=== PATIENT | male | born 1935 | race Hispanic/Latino ===

== ENCOUNTER 2017-07-27 21:43 | Inpatient (IN) | payer MEDICARE ==
[~2017-07-27] VITALS: Ht 177.8 cm; Wt 83.6 kg
[~2017-07-27 21:43] MED LIST: FUROSEMIDE20 MG PO; LUMIGAN2.5 M1 OP; PRAVASTATIN SOD40 MG PO; Z.0.LIPITOR40 MG PO; Z.0.LISINOPRIL20 MG PO; [UNRECOGNIZED DRUG - REMARK]
[2017-07-27] MEDS ORDERED: SODIUM CHLORIDE 0.9% 1000ML 1,000 ML IV STA (22:02)
[2017-07-27 22:29] LABS: BASOPHILS % 0.2 % (0.0-1.0); HEMATOCRIT 38.1 % (38.2-49.6); HEMOGLOBIN 13.4 g/dL (14.0-18.0); LYMPHOCYTES # (AUTO) 0.6 (1.0-3.2); LYMPHOCYTES % 4.1 % (18.0-39.1); MEAN CORPUSCULAR HEMOGLOBIN 30.6 pg (28-32); MEAN CORPUSCULAR HGB CONC 35.2 g/dL (31-35); MONOCYTES % 7.4 % (4.4-11.3); NEUTROPHILS # (AUTO) 12.1 (2.1-6.9); NEUTROPHILS % 86.7 % (38.7-80.0); PLATELET COUNT 102 x10e3/uL (140-360); RED BLOOD COUNT 4.38 x10e6/uL (4.3-5.7)
[2017-07-27 22:37] LABS: INR 1.44; PROTHROMBIN TIME 16.5 seconds (11.9-14.5)
[2017-07-27 22:38] LABS: PARTIAL THROMBOPLASTIN TIME 37.7 seconds (23.8-35.5)
[2017-07-27 22:47] LABS: ALANINE AMINOTRANSFERASE 22 IU/L (0-55); ALBUMIN 3.6 g/dL (3.5-5.0); ALBUMIN/GLOBULIN RATIO 0.9 (0.8-2.0); ALKALINE PHOSPHATASE 61 IU/L (40-150); ANION GAP 16.5 mmol/L (8-16); BLOOD UREA NITROGEN 15 mg/dL (7-26); BUN/CREATININE RATIO 13 (6-25); CALCIUM 9.4 mg/dL (8.4-10.2); CARBON DIOXIDE 19 mmol/L (22-29); CHLORIDE 102 mmol/L (98-107); CREATINE KINASE 613 IU/L (30-200); CREATININE, SERUM 1.12 mg/dL (0.72-1.25); EST GLOMERULAR FILTRATION RATE > 60 ML/MIN (60-); GLUCOSE 150 mg/dL (74-118); MAGNESIUM 1.5 MG/DL (1.3-2.1); POTASSIUM 3.5 mmol/L (3.5-5.1); SODIUM 134 mmol/L (136-145)
--- NOTE | 2017-07-27 22:48 | Diagnostic Imaging Report ---
History: Fall, near syncope. Comparison studies: None Technique: Axial images were obtained through the cervical region.. Coronal and sagittal images reconstructed from the axial data.. Intravenous contrast: None Findings: Fractures: None. Soft tissue injuries: None. Atlantoaxial articulation: Intact. Alignment: Normal lordosis. No scoliosis. 2 mm, grade 1 retrolisthesis at level C5-C6. Cervicomedullary junction: No abnormalities. The foramen magnum is patent. Soft tissues: Atherosclerotic calcification in bilateral carotid bulb. 5 mm calcified nodule in left lobe of the thyroid gland. Vertebrae: No fractures, infection or neoplasm. Degenerative changes: Mild degenerative changes in the anterior atlantodental joint. C 3-C4: Mild degenerative disc disease with vacuum phenomenon. Posterior disc osteophyte complex without canal stenosis. Mild right and moderate left foraminal stenosis due to facet and uncovertebral arthrosis. C4-C5: Moderate degenerative disc disease with vacuum phenomena and. Mild left foraminal stenosis due to facet and uncovertebral arthrosis. C5-C6: Moderate degenerative disc disease with vacuum phenomenon. Posterior disc osteophyte complex results in mild canal stenosis. Moderate right and severe left foraminal stenosis facet and uncovertebral arthrosis. C6-C7: Moderate degenerative disc disease with vacuum phenomenon and. Posterior disc osteophyte complex results in mild canal stenosis. Severe right and moderate left foraminal stenosis due to facet and uncovertebral arthrosis. IMPRESSION: 1. No acute cervical spine fracture or dislocation. 2. Ligament, spinal cord and or vascular abnormalities cannot be excluded on the basis of this examination. 3. Cervical spondylosis as detailed above. Signed by: Dr. Shanon Malik M.D. on 07/27/2017 10:45 PM
[2017-07-27 22:52] LABS: B-TYPE NATRIURETIC PEPTIDE2 81.7 pg/mL (0-100)
--- NOTE | 2017-07-27 22:54 | Diagnostic Imaging Report ---
EXAMINATION: Head CT without contrast. HISTORY:Fall. COMPARISON:None. TECHNIQUE: Multidetector axial images were obtained from the foramen magnum to the vertex without contrast. The images were reconstructed using brain and bone algorithms. Thin section brain images were reformatted into coronal and sagittal planes. Intravenous contrast: None IMAGE QUALITY: Acceptable. FINDINGS: Skull/scalp: No abnormality. Parenchyma: Nonspecific bilateral frontoparietal patchy white matter hypodensity are likely related to small vessel ischemic changes. 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 Questionable focal hypodensity in the inferior aspect of the lou may either represent an artifact or age indeterminate lacunar infarct. Arteries: Atherosclerotic calcification in bilateral carotid siphon. Dural sinuses: No abnormal density suggestive of thrombosis. Ventricles: No hydrocephalus or displacement. Extra-axial spaces: No abnormal density. Brain volume: Generalized age-related cerebral volume loss. Craniocervical junction: No mass, Chiari malformation, or basilar invagination. Sella: No mass. Paranasal/mastoid sinuses: Imaged portions unremarkable. IMPRESSION: 1. No acute posttraumatic intracranial abnormality. 2. 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 3. Mild supratentorial white matter microvascular ischemic changes. 4. Generalized age-related cerebral volume loss. Signed by: Dr. Shanon Malik M.D. on 07/27/2017 10:50 PM
--- NOTE | 2017-07-27 23:00 | Diagnostic Imaging Report ---
SHOULDER LEFT COMPLETE HISTORY: Shoulder pain status post fall COMPARISON: None FINDINGS: Bones: No displaced fracture. Osseous alignment is within normal limits. Joints: The joint spaces are well-maintained. Soft tissues: The soft tissues appear unremarkable. IMPRESSION: No acute radiographic abnormality. Signed by: Dr. Klaus Vega M.D. on 07/27/2017 10:57 PM
--- NOTE | 2017-07-27 23:00 | Diagnostic Imaging Report ---
EXAMINATION: CHEST SINGLE (PORTABLE) INDICATION: Fever, tachycardia COMPARISON: 04/23/2014 FINDINGS: TUBES and LINES: None. LUNGS: Lungs are well inflated. Lungs are clear. There is no evidence of pneumonia or pulmonary edema. PLEURA: No pleural effusion or pneumothorax. HEART AND MEDIASTINUM: The cardiomediastinal silhouette is unremarkable. There are atherosclerotic calcifications within the aorta. BONES AND SOFT TISSUES: No acute osseous lesion. Soft tissues are unremarkable. UPPER ABDOMEN: No free air under the diaphragm. IMPRESSION: No acute thoracic abnormality. Signed by: Dr. Klaus Vega M.D. on 07/27/2017 10:56 PM
--- NOTE | 2017-07-27 23:06 | Diagnostic Imaging Report ---
ADDENDUM #1 Addendum report for typo in the impression #5 EXAM: CT Abdomen and Pelvis WITHOUT contrast INDICATION: Flank pain, stones COMPARISON: None. TECHNIQUE: Abdomen and pelvis were scanned utilizing a multidetector helical scanner from the lung base to the pubic symphysis without administration of IV contrast. Absence of intravenous contrast decreases sensitivity for detection of focal lesions and vascular pathology. Coronal and sagittal reformations were obtained. Stone protocol is performed. IV CONTRAST: None. ORAL CONTRAST: Water RADIATION DOSE: Total DLP: 675.59 mGy*cm Estimated effective dose: (DLP x 0.015 x size factor) mSv COMPLICATIONS: None FINDINGS: LINES and TUBES: None. LOWER THORAX: Minimal bibasilar fibrotic changes. Coronary artery disease visualized. HEPATOBILIARY: No focal hepatic lesions. No biliary ductal dilation. GALLBLADDER: There are few small stones in the gallbladder. No wall thickening. SPLEEN: No splenomegaly. PANCREAS: No focal masses or ductal dilatation. ADRENALS: No adrenal nodules KIDNEYS/URETERS: No hydronephrosis. There are 2 cystic lesions in the upper pole of the right kidney measuring 2.4 cm in diameter and 2.6 cm in diameter. The largest is a slightly hyperdense about 20 Hounsfield units. No stones. GI TRACT: No abnormal distention, wall thickening, or evidence of bowel obstruction. There are diverticula within the colon without evidence of diverticulitis. Appendix is not clearly identified. There is however no fat stranding or adenopathy in the right lower quadrant to suggest appendicitis. PELVIC ORGANS/BLADDER: Circumferential bladder wall thickening most likely due to BPH LYMPH NODES: No lymphadenopathy. VESSELS: There is moderate atherosclerotic disease in the aorta and major arterial branches. PERITONEUM / RETROPERITONEUM: No free air or fluid. BONES: There are degenerative changes in the lumbar spine. Old compression deformity of L2 vertebral body near 90% of the vertebral height. SOFT TISSUES: Unremarkable. IMPRESSION: 1. No evidence of nephrolithiasis or hydronephrosis. 2. Right renal upper pole cystic lesions, the largest measuring 2.6 cm in diameter is indeterminate. Short-term follow-up renal ultrasound is recommended. 3. Diverticulosis without evidence of diverticulitis. 4. Prostatomegaly. 5. 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 Klaus Vega M.D. on 07/29/2017 7:33 PM ORIGINAL REPORT EXAM: CT Abdomen and Pelvis WITHOUT contrast INDICATION: Flank pain, stones COMPARISON: None. TECHNIQUE: Abdomen and pelvis were scanned utilizing a multidetector helical scanner from the lung base to the pubic symphysis without administration of IV contrast. Absence of intravenous contrast decreases sensitivity for detection of focal lesions and vascular pathology. Coronal and sagittal reformations were obtained. Stone protocol is performed. IV CONTRAST: None. ORAL CONTRAST: Water RADIATION DOSE: Total DLP: 675.59 mGy*cm Estimated effective dose: (DLP x 0.015 x size factor) mSv COMPLICATIONS: None FINDINGS: LINES and TUBES: None. LOWER THORAX: Minimal bibasilar fibrotic changes. Coronary artery disease visualized. HEPATOBILIARY: No focal hepatic lesions. No biliary ductal dilation. GALLBLADDER: There are few small stones in the gallbladder. No wall thickening. SPLEEN: No splenomegaly. PANCREAS: No focal masses or ductal dilatation. ADRENALS: No adrenal nodules KIDNEYS/URETERS: No hydronephrosis. There are 2 cystic lesions in the upper pole of the right kidney measuring 2.4 cm in diameter and 2.6 cm in diameter. The largest is a slightly hyperdense about 20 Hounsfield units. No stones. GI TRACT: No abnormal distention, wall thickening, or evidence of bowel obstruction. There are diverticula within the colon without evidence of diverticulitis. Appendix is not clearly identified. There is however no fat stranding or adenopathy in the right lower quadrant to suggest appendicitis. PELVIC ORGANS/BLADDER: Circumferential bladder wall thickening most likely due to BPH LYMPH NODES: No lymphadenopathy. VESSELS: There is moderate atherosclerotic disease in the aorta and major arterial branches. PERITONEUM / RETROPERITONEUM: No free air or fluid. BONES: There are degenerative changes in the lumbar spine. Old compression deformity of L2 vertebral body near 90% of the vertebral height. SOFT TISSUES: Unremarkable. IMPRESSION: 1. No evidence of nephrolithiasis or hydronephrosis. 2. Right renal upper pole cystic lesions, the largest measuring 2.6 cm in diameter is indeterminate. Short-term follow-up renal ultrasound is recommended. 3. Diverticulosis without evidence of diverticulitis. 4. Prostatomegaly. 5. 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 Klaus Vega M.D. on 07/27/2017 11:03 PM
[2017-07-27 23:07] LABS: THYROID STIMULATING HORMONE 1.221 uIU/mL (0.350-4.940)
[2017-07-27] MEDS ORDERED: ACETAMINOPHEN 325 MG TAB PO ONE (23:15)
[2017-07-27] MEDS ORDERED: VANCOMYCIN 1GM/NS 250 ML 250 ML IV ONE (23:15)
[2017-07-27 23:43] LABS: BILIRUBIN,URINE NEGATIVE (NEGATIVE); KETONES,URINE 2+ (NEGATIVE); LEUKOCYTE ESTERASE ,URINE 2+ (NEGATIVE); URINE UROBILINOGEN 0.2 mg/dL (0.2 - 1)
[2017-07-27 23:46] LABS: CLARITY,URINE CLOUDY (CLEAR); COLOR,URINE YELLOW (YELLOW); NITRITE,URINE POSITIVE (NEGATIVE); PROTEIN,URINE DIPSTICK 2+ (NEGATIVE)
[2017-07-27 23:55] LABS: BACTERIA,URINE MANY /HPF; EPITHELIAL CELLS,URINE RARE /LPF; RBC,URINE 21-50 /HPF (0-5); WBC,URINE (MAN) >50 /HPF (0-5)
[2017-07-28] MEDS ORDERED: SODIUM CHLORIDE 0.9% 1000ML 1,000 ML IV STA (01:11)
[2017-07-28] MEDS ORDERED: FAMOTIDINE 20 MG/2 ML VIAL IV SCH (02:00)
[2017-07-28] MEDS ORDERED: ONDANSETRON HCL INJ 2 MG/ML VIAL IV PRN (02:00)
[2017-07-28] MEDS: CEFEPIME HCL 2 GM VIAL IV SCH ×3 (02:07→22:36)
--- OUTSIDE RECORDS SUMMARY | 2017-07-28 02:08 | XMS REPORT ---
[facility] Address Unknown Phone Unavailable Care Team Providers Care Cushion Filler Name Role Phone MICHELLE BULL Unavailable Unavailable Problems This patient has no known problems. Allergies, Adverse Reactions, Alerts This patient has no known allergies or adverse reactions. Medications This patient has no known medications. Results Test Description Test Time Test Comments Text Results Atomic Results Result Comments CT ABDOMEN/PELVIS WO [place] [address] Patient Name: RED NORTH MR #: [id number] : 1935 Age/Sex: 82/M Req #: [id number] Adm Physician: Ordered by: MICHELLE BULL MD Report #: [id number] Location: ER Room/Bed: Procedure: [id number] CT/CT ABDOMEN/PELVIS WO Exam Date: 07/27/17 Exam Time: 5 REPORT STATUS: Signed EXAM: CT Abdomen and Pelvis WITHOUT contrast INDICATION: Flank pain, stones COMPARISON: None. TECHNIQUE: Abdomen and pelvis were scanned utilizing a multidetector helical scanner from the lung base to the pubic symphysis without administration of IV contrast. Absence of intravenous contrast decreases sensitivity for detection of focal lesions and vascular pathology. Coronal and sagittal reformations were obtained. Stone protocol is performed. IV CONTRAST: None. ORAL CONTRAST: Water RADIATION DOSE: Total DLP: 675.59 mGy*cm Estimated effective dose: (DLP x 0.015 x size factor) mSv COMPLICATIONS: None FINDINGS: LINES and TUBES: None. LOWER THORAX: Minimal bibasilar fibrotic changes. Coronary artery disease visualized. HEPATOBILIARY: No focal hepatic lesions. No biliary ductal dilation. GALLBLADDER: There are few small stones in the gallbladder. No wall thickening. SPLEEN: No splenomegaly. PANCREAS: No focal masses or ductal dilatation. ADRENALS: No adrenal nodules KIDNEYS/URETERS: No hydronephrosis. There are 2 cystic lesions in the upper pole of the right kidney measuring 2.4 cm in diameter and 2.6 cm in diameter. The largest is a slightly hyperdense about 20 Hounsfield units. No stones. GI TRACT: No abnormal distention, wall thickening, or evidence of bowel obstruction. There are diverticula within the colon without evidence of diverticulitis. Appendix is not clearly identified. There is however no fat stranding or adenopathy in the right lower quadrant to suggest appendicitis. PELVIC ORGANS/BLADDER: Circumferential bladder wall thickening most likely due to BPH LYMPH NODES: No lymphadenopathy. VESSELS: There is moderate atherosclerotic disease in the aorta and major arterial branches. PERITONEUM / RETROPERITONEUM: No free air or fluid. BONES: There are degenerative changes in the lumbar spine. Old compression deformity of L2 vertebral body near 90% of the vertebral height. SOFT TISSUES: Unremarkable. IMPRESSION: 1. No evidence of nephrolithiasis or hydronephrosis. 2. Right renal upper pole cystic lesions, the largest measuring 2.6 cm in diameter is indeterminate. Short-term follow-up renal ultrasound is recommended. 3. Diverticulosis without evidence of diverticulitis. 4. Prostatomegaly. 5. 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 Klaus Vega M.D. on 07/27/2017 11:03 PM Dictated By: KLAUS MONIQUE MD 02 Transcribed By: SIMEON on 07/27/172302 COPY TO: MICHELLE BULL MD CT CERVICAL SPINE [place] [address] Patient Name: RED NORTH MR #: [id number] : 1935 Age/Sex: 82/M Req #: [id number] Adm Physician: Ordered by: MICHELLE BULL MD Report #: [id number] Location: ER Room/Bed: Procedure: [id number] CT/CT CERVICAL SPINE WO Exam Date: 07/27/17 Exam Time: 2214 REPORT STATUS: Signed History: Fall, near syncope. Comparison studies: None Technique: Axial images were obtained through the cervical region.. Coronal and sagittal images reconstructed from the axial data.. Intravenous contrast: None Findings: Fractures: None. Soft tissue injuries: None. Atlantoaxial articulation: Intact. Alignment: Normal lordosis. No scoliosis. 2 mm, grade 1 retrolisthesis at level C5-C6. Cervicomedullary junction: No abnormalities. The foramen magnum is patent. Soft tissues: Atherosclerotic calcification in bilateral carotid bulb. 5 mm calcified nodule in left lobe of the thyroid gland. Vertebrae : No fractures, infection or neoplasm. Degenerative changes: Mild degenerative changes in the anterior atlantodental joint. C 3-C4: Mild degenerative disc disease with vacuum phenomenon. Posterior disc osteophyte complex without canal stenosis. Mild right and moderate left foraminal stenosis due to facet and uncovertebral arthrosis. C4-C5: Moderate degenerative disc disease with vacuum phenomena and. Mild left foraminal stenosis due to facet and uncovertebral arthrosis. C5-C6: Moderate degenerative disc disease with vacuum phenomenon. Posterior disc osteophyte complex results in mild canal stenosis. Moderate right and severe left foraminal stenosis facet and uncovertebral arthrosis. C6-C7: Moderate degenerative disc disease with vacuum phenomenon and. Posterior disc osteophyte complex results in mild canal stenosis. Severe right and moderate left foraminal stenosis due to facet and uncovertebral arthrosis. IMPRESSION: 1. No acute cervical spine fracture or dislocation. 2. Ligament, spinal cord and or vascular abnormalities cannot be excluded on the basis of this examination. 3. Cervical spondylosis as detailed above. Signed by: Dr. Shanon Malik M.D. on 07/27/2017 10:45 PM Dictated By: SHANON MALIK MD 44 Transcribed By: SIMEON on 07/27/172244 COPY TO: MICHELLE BULL MD CT BRAIN WO [place] [address] Patient Name: RED NORTH MR #: [id number] : 1935 Age/Sex: 82/M Req #: [id number] Adm Physician: Ordered by: MICHELLE BULL MD Report #: [id number] Location: ER Room/Bed: Procedure: [id number] CT/CT BRAIN WO Exam Date: 07/27/17 Exam Time: 2214 REPORT STATUS: Signed EXAMINATION: Head CT without contrast. HISTORY:Fall. COMPARISON:None. TECHNIQUE: Multidetector axial images were obtained from the foramen magnum to the vertex without contrast. The images were reconstructed using brain and bone algorithms. Thin section brain images were reformatted into coronal and sagittal planes. Intravenous contrast: None IMAGE QUALITY: Acceptable. FINDINGS: Skull/scalp: No abnormality. Parenchyma: Nonspecific bilateral frontoparietal patchy white matter hypodensity are likely related to small vessel ischemic changes. 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 Questionable focal hypodensity in the inferior aspect of the lou may either represent an artifact or age indeterminate lacunar infarct. Arteries: Atherosclerotic calcification in bilateral carotid siphon. Dural sinuses: No abnormal density suggestive of thrombosis. Ventricles: No hydrocephalus or displacement. Extra-axial spaces: No abnormal density. Brain volume: Generalized age-related cerebral volume loss. Craniocervical junction: No mass, Chiari malformation, or basilar invagination. Sella: No mass. Paranasal/mastoid sinuses: Imaged portions unremarkable. IMPRESSION: 1. No acute posttraumatic intracranial abnormality. 2. 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 3. Mild supratentorial white matter microvascular ischemic changes. 4. Generalized age-related cerebral volume loss. Signed by: Dr. Shanon Malik M.D. on 07/27/2017 10:50 PM Dictated By: SHANON MALIK MD 49 Transcribed By: SIMEON on 07/27/172249 COPY TO: MICHELLE BULL MD CHEST SINGLE (PORTABLE) [place] [address] Patient Name: RED NORTH MR #: [id number] : 1935 Age/Sex: 82/M Req #: [id number] Adm Physician: Ordered by: MICHELLE BULL MD Report #: [id number] Location: ER Room/Bed: Procedure: [id number] DX/CHEST SINGLE (PORTABLE) Exam Date: 07/27/17 Exam Time: 2214 REPORT STATUS: Signed EXAMINATION: CHEST SINGLE (PORTABLE) INDICATION: Fever, tachycardia COMPARISON: 04/23/2014 FINDINGS: TUBES and LINES: None. LUNGS : Lungs are well inflated. Lungs are clear. There is no evidence of pneumonia or pulmonary edema. PLEURA: No pleural effusion or pneumothorax. HEART AND MEDIASTINUM: The cardiomediastinal silhouette is unremarkable. There are atherosclerotic calcifications within the aorta. BONES AND SOFT TISSUES: No acute osseous lesion. Soft tissues are unremarkable. UPPER ABDOMEN: No free air under the diaphragm. IMPRESSION: No acute thoracic abnormality. Signed by: Dr. Klaus Vega M.D. on 07/27/2017 10:56 PM Dictated By: KLAUS MONIQUE MD 55 Transcribed By: SIMEON on 07/27/172255 COPY TO: MICHELLE BULL MD SHOULDER LEFT COMPLETE [place] [address] Patient Name: RED NORTH MR #: [id number] : 1935 Age/Sex: 82/M Req #: [id number] Adm Physician: Ordered by: MICHELLE BULL MD Report #: [id number] Location: ER Room/Bed: Procedure: [id number] DX/SHOULDER LEFT COMPLETE Exam Date: 07/27/17 Exam Time: 2214 REPORT STATUS: Signed SHOULDER LEFT COMPLETE HISTORY: Shoulder pain status post fall COMPARISON: None FINDINGS: Bones: No displaced fracture. Osseous alignment is within normal limits. Joints: The joint spaces are well-maintained. Soft tissues: The soft tissues appear unremarkable. IMPRESSION: No acute radiographic abnormality. Signed by: Dr. Klaus Vega M.D. on 2017 10:57 PM Dictated By: KLAUS MONIQUE MD 56 Transcribed By: SIMEON on 07/27/172256 COPY TO: MICHELLE BULL MD
[2017-07-28] MEDS ORDERED: ACETAMINOPHEN 325 MG TAB PO PRN (02:15)
[2017-07-28] MEDS: SODIUM CHLORIDE 0.9% 1000ML 1,000 ML IV SCH ×3 (03:32→21:58)
[2017-07-28 04:21] LABS: CREATINE KINASE MB 3.6 ng/mL (0-5.0)
[2017-07-28] MEDS: FAMOTIDINE 20 MG/2 ML VIAL IV SCH ×2 (09:57→21:58)
[2017-07-28 13:04] LABS: CREATINE KINASE MB 5.4 ng/mL (0-5.0)
[2017-07-28] MEDS ORDERED: ASPIRIN 81 MG CHEW TAB PO ONE (15:15)
--- NOTE | 2017-07-28 16:09 | History and Physical ---
HISTORY OF PRESENT ILLNESS: He is an 82-year-old male with past medical history positive for benign prostatic hypertrophy, status post TURP in the past done by Dr. Garza, history of hypertension. Also he had a fall at home. He was having also burning on urination and he was having fever. He came to the emergency room and found to have urinary tract infection. Started on IV antibiotics. He is unable to void also. He was found to have rhabdomyolysis. REVIEW OF SYSTEMS: CARDIOVASCULAR: No chest pain or palpitations. RESPIRATORY: No shortness of breath. No cough. GASTROINTESTINAL: No nausea, vomiting or diarrhea. GENITOURINARY: He has frequency and he has urinary retention. No dysuria today. ALLERGIES: HE CLAIMS HE IS NOT ALLERGIC TO ANY MEDICATIONS. SOCIAL HISTORY: He does smoke, does not drink. PAST MEDICAL HISTORY: Hypertension, benign prostatic hypertrophy, status post TURP. PHYSICAL EXAMINATION: HEART: Shows regular rhythm. Normal S1and no extra sounds. LUNGS: Clear bilaterally. ABDOMEN: Soft with minimal tenderness on the lower abdomen. He had a distended bladder. On the CT of the abdomen, it showed no evidence of any cholelithiasis or hydronephrosis. 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 He had a CT of the head which showed no acute posttraumatic intracranial abnormalities, age indeterminate lacunar infarct in the left thalamus, mild, supratentorial white matter microvascular ischemic changes, generalized age related. Cerebral volume loss. Then we have a CT of the cervical spine which showed no acute cervical spine fracture or dislocation. It showed ligament spinal cord vascular abnormalities cannot be excluded on the basis of this examination, cervical spondylosis as detailed above. We have also a chest x-ray with no acute thoracic abnormalities. We have also shoulder x-ray which showed no acute radiographic abnormalities. LABORATORY DATA: On the blood work, we have influenza test came back negative. CMP showed sodium of 134, potassium 3.5, chloride 102. CO2 19, BUN 15, creatinine 1.12, GFR 60 and glucose 150. Lactic acid 20.9. The last one was 10.6. Calcium 9.6. Magnesium 1.5. Total bilirubin 1.5. AST 27, ALT 22, alkaline phosphatase 61. Creatinine kinase was 313 now is 924. CK-MB troponins are completely negative. Total protein 7.4, albumin 3.6, globulin 3.8. TSH 1.221. On the CBC, white blood count 13.91. Hemoglobin 13.4 and hematocrit 38.1, platelet count 102,000. Urinalysis showed positive leukocytes, positive red blood cells, many bacteria. Urine culture and blood culture have been ordered. Report is pending. We have some gram-negative bacteria growing in the urine and in the blood also. FINAL IMPRESSION: 1. Urinary tract infection. 2. Prostatitis. 3. Rhabdomyolysis. 4. Benign prostatic hypertrophy. 5. Left shoulder pain. 6. Sepsis secondary to urinary tract infection. 7. 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 PLAN OF TREATMENT: Continue normal saline 100 mL an hour. Continue Tylenol 975 mg as needed for pain or fever. Cefepime 2 grams IV piggyback twice a day. Pepcid 20 mg IV twice a day. Zofran 4 mg IV q.4 h. as needed. Going to consult Dr. Garza, going to consult Dr. Kuhn. Going to repeat a CBC, CMP and CK tomorrow. Job#: [id number]
[2017-07-28 19:20] VITALS: BP 148/77
[2017-07-28 19:30] VITALS: BP 148/77
[2017-07-28] MEDS ORDERED: LASIX40 MG PO (22:53)
[2017-07-28] MEDS ORDERED: GABAPENTIN300 MG PO (22:57)
[2017-07-28] MEDS ORDERED: LASIX20 MG PO (22:57)
[2017-07-28] MEDS ORDERED: LISINOPRIL10 MG PO (22:57)
[2017-07-28] MEDS ORDERED: REFRESH TEARS15 ML OU (22:57)
[2017-07-28 23:50] VITALS: BP 148/77
[2017-07-29] VITALS (8 sets, daily range): BP systolic 144–162; BP diastolic 62–94
[2017-07-29] MEDS: SODIUM CHLORIDE 0.9% 1000ML 1,000 ML IV SCH (06:10)
[2017-07-29] MEDS: FAMOTIDINE 20 MG/2 ML VIAL IV SCH (09:15)
[2017-07-29 09:57] LABS: BASOPHILS % 0.3 % (0.0-1.0); EOSINOPHILS # (AUTO) 0.1 (0.0-0.4); EOSINOPHILS % 1.3 % (0.0-6.0); HEMATOCRIT 36.7 % (38.2-49.6); HEMOGLOBIN 12.5 g/dL (14.0-18.0); LYMPHOCYTES # (AUTO) 0.7 (1.0-3.2); LYMPHOCYTES % 9.4 % (18.0-39.1); MEAN CORPUSCULAR HEMOGLOBIN 30.3 pg (28-32); MEAN CORPUSCULAR HGB CONC 34.1 g/dL (31-35); MEAN CORPUSCULAR VOLUME 88.9 fL (81-99); MONOCYTES # (AUTO) 0.5 (0.2-0.8); MONOCYTES % 6.9 % (4.4-11.3); NEUTROPHILS # (AUTO) 6.4 (2.1-6.9); NEUTROPHILS % 81.3 % (38.7-80.0); PLATELET COUNT 96 x10e3/uL (140-360); RED BLOOD COUNT 4.13 x10e6/uL (4.3-5.7); RED CELL DISTRIBUTION WIDTH 12.8 % (11.7-14.4)
[2017-07-29] MEDS: LISINOPRIL 20 MG TAB PO SCH (10:16)
[2017-07-29 10:20] LABS: ALANINE AMINOTRANSFERASE 24 IU/L (0-55); ALBUMIN 2.8 g/dL (3.5-5.0); ALBUMIN/GLOBULIN RATIO 0.7 (0.8-2.0); ALKALINE PHOSPHATASE 56 IU/L (40-150); ANION GAP 11.2 mmol/L (8-16); BLOOD UREA NITROGEN 9 mg/dL (7-26); BUN/CREATININE RATIO 13 (6-25); CALCIUM 8.6 mg/dL (8.4-10.2); CARBON DIOXIDE 19 mmol/L (22-29); CHLORIDE 109 mmol/L (98-107); CHOL/HDL RATIO 3.7 (3.9-4.7); CHOLESTEROL 132 MD/DL (0-199); CREATININE, SERUM 0.72 mg/dL (0.72-1.25); EST GLOMERULAR FILTRATION RATE > 60 ML/MIN (60-); GLUCOSE 170 mg/dL (74-118); HDL CHOLESTEROL 36 MG/DL (40-60); LDL CHOLESTEROL 72 MG/DL (60-130); POTASSIUM 3.2 mmol/L (3.5-5.1); SODIUM 136 mmol/L (136-145); TRIGLYCERIDES 118 MG/DL (0-149)
[2017-07-29] MEDS: CEFEPIME HCL 2 GM VIAL IV SCH (11:35)
[2017-07-29] MEDS ORDERED: CEFEPIME HCL 1 GM VIAL IV SCH (14:00)
[2017-07-29] MEDS ORDERED: POTASSIUM CHLORIDE 20 MEQ TAB CR PO ONE (15:00)
[2017-07-29] MEDS: INSULIN REGULAR, HUMAN 100 UNIT/1 ML 3ML VIAL SQ SCH ×2 (16:24→20:02)
[2017-07-29] MEDS ORDERED: DEXTROSE 50% SYRINGE 50 ML IV PRN (16:30)
[2017-07-29] MEDS ORDERED: INSULIN REGULAR, HUMAN 100 UNIT/1 ML 3ML VIAL SQ SCH (16:30)
--- NOTE | 2017-07-29 17:05 | Consultation ---
DATE OF CONSULTATION: July 29, 2017 INFECTIOUS DISEASE CONSULTATION ATTENDING PHYSICIAN: Dr. Duglas Jurado. REASON FOR CONSULTATION: Sepsis and urinary tract infection. Thank you, Dr. Jurado, for asking me to see this patient. TRANSFER HISTORY: The patient is an 82-year-old man referred for sepsis and urinary tract infection. He presented to the emergency department on 07/27/2017 with left shoulder pain after a fall at home. The patient uses walker at home. He recalls frequent small volume urination, but denies dysuria and flank pain. He fell landing on the left shoulder while getting out of the toilet. He denies dizziness, loss of consciousness, or confusion. He is not sure whether he tripped. In the emergency department, he was noted to have fever to 102.1 degrees Fahrenheit, pulse 119, respiratory rate 18, and blood pressure 134/73. Initial laboratory studies showed blood leucocyte count of 13,910 with 86.7% neutrophils; BUN 15, creatinine 1.12, troponin 0.036 and abnormal urinalysis. Left shoulder x-ray showed no acute fracture or dislocation. Also, brain CT scan and cervical CT scan showed no acute abnormality. PAST MEDICAL HISTORY: Hypertension, hyperlipidemia, neuropathy, and benign prostatic hyperplasia. PAST SURGICAL HISTORY: Appendectomy, transurethral resection of the prostate, lumbar spine laminectomy, left ankle open reduction and internal fixation. ALLERGIES: NO KNOWN DRUG ALLERGIES. MEDICATIONS: See MAR. The current antibiotic is cefepime 2 g IV piggyback q.12 hours. IMMUNIZATIONS: He received pneumococcal vaccination in the past. He has not received influenza vaccine, he stated that he never receives it. FAMILY HISTORY: Noncontributory. SOCIAL HISTORY: No alcohol or tobacco use. REVIEW OF SYSTEMS: As per history of present illness. The patient feels better since admission management. PHYSICAL EXAMINATION GENERAL: No acute distress. VITAL SIGNS: T-max 102.1, pulse 89, respiratory rate 20, blood pressure 162/94. Weight 189 pounds. HEENT: Atraumatic. There is no icterus or injection of the conjunctivae. There is no ear or nasal discharge. Moist oral mucosa. No pharyngeal erythema or exudate. NECK: Supple. No lymphadenopathy. LUNGS: Good air entry bilaterally. HEART: Normal S1 and S2. ABDOMEN: Normal bowel sounds in all quadrants. Soft and nontender. There is no costovertebral angle tenderness. EXTREMITIES: There is no edema, clubbing, or cyanosis. SKIN: There is no acute erythema. SECOND CRUSHER: Awake, alert, and oriented to person, place and time. Nonfocal. LABORATORY: WBC 7800, hemoglobin 12.5, platelet 96,000, neutrophil 81.3, lymph 9.4, mono 6.9, eosinophil 1.3, and basophil 0.3. BUN 9, creatinine 0.72. AST 36, ALT 24, alk phos 56, total bilirubin 0.7. Influenza antigen test negative. Urine culture grew Klebsiella pneumoniae and blood culture grew streptococcus species from 1 of 4 bottles. IMPRESSION 1. Urinary tract infection with sepsis due to Klebsiella pneumoniae, present on admission. 2. Positive blood culture due to streptococcus species, appears to be a contamination. 3. Benign prostatic hyperplasia. PLAN 1. Repeat blood culture with strict aseptic technique. 2. Change cefepime to 1 g IV piggyback q.8 hours. Influenza vaccination was offered to the patient, but he declined. 3. Remove Elizondo catheter. Job#: [id number] [facility]
[2017-07-29] MEDS: CEFEPIME HCL 1 GM VIAL IV SCH (19:32)
[2017-07-30] VITALS (8 sets, daily range): BP systolic 143–162; BP diastolic 72–92
[2017-07-30] MEDS: CEFEPIME HCL 1 GM VIAL IV SCH ×3 (04:08→20:50)
[2017-07-30] MEDS: INSULIN REGULAR, HUMAN 100 UNIT/1 ML 3ML VIAL SQ SCH ×4 (07:30→20:35)
[2017-07-30] MEDS: LISINOPRIL 20 MG TAB PO SCH (09:32)
[2017-07-30] MEDS ORDERED: POTASSIUM CHLORIDE 20 MEQ TAB CR PO ONE (15:00)
[2017-07-30] MEDS: PHENAZOPYRIDINE HCL 100 MG TAB PO SCH (20:49)
[2017-07-31] VITALS: BP 136/76
[2017-07-31 00:08] VITALS: BP 161/89
[2017-07-31] MEDS: CEFEPIME HCL 1 GM VIAL IV SCH ×2 (03:26→13:24)
[2017-07-31 04:00] VITALS: BP 113/69
[2017-07-31] MEDS: PHENAZOPYRIDINE HCL 100 MG TAB PO SCH ×2 (05:48→13:24)
[2017-07-31 07:25] LABS: ANION GAP 13.9 mmol/L (8-16); BLOOD UREA NITROGEN 9 mg/dL (7-26); BUN/CREATININE RATIO 13 (6-25); CALCIUM 8.9 mg/dL (8.4-10.2); CARBON DIOXIDE 20 mmol/L (22-29); CHLORIDE 106 mmol/L (98-107); CREATININE, SERUM 0.72 mg/dL (0.72-1.25); EST GLOMERULAR FILTRATION RATE > 60 ML/MIN (60-); GLUCOSE 115 mg/dL (74-118); POTASSIUM 3.9 mmol/L (3.5-5.1); SODIUM 136 mmol/L (136-145)
[2017-07-31] MEDS: INSULIN REGULAR, HUMAN 100 UNIT/1 ML 3ML VIAL SQ SCH ×2 (07:30→11:30)
[2017-07-31 08:49] VITALS: BP 146/90
[2017-07-31] MEDS: LISINOPRIL 20 MG TAB PO SCH (09:01)
[2017-07-31] MEDS ORDERED: CLONIDINE HCL 0.2 MG TAB PO ONE (13:10)
--- NOTE | 2017-07-31 14:36 | Discharge Summary ---
HISTORY OF PRESENT ILLNESS: An 82-year-old male with past medical history positive for hypertension, benign prostatic hypertrophy and diabetes, came here with frequent urination, burning on urination. He was found to have a UTI, prostatitis, started on IV antibiotics. He was also found to have Streptococcus viridans in the blood culture, which is a contaminant as per Dr. Smith, infectious disease specialist. Patient is going to go home to follow up with Dr. Garza in a week, and he is being started on cefixime for [address] Smith. PHYSICAL EXAM: HEART: Shows regular rhythm. Normal S1 and S2 sounds. LUNGS: Clear bilaterally. ABDOMEN: Soft. EXTREMITIES: Show no evidence of cyanosis, edema or trauma. VITAL SIGNS: Blood pressure 146/90, temperature 96.5, heart rate 81 per minute, respiratory rate is 20 per minute. LABORATORY STUDIES: On the blood work, a BMP showed sodium 136, potassium 3.9, chloride 106, CO2 20, BUN 9, creatinine 0.72, glucose 115. On the CBC: White blood count 7.80, hemoglobin 12.5, hematocrit 36.7, platelet count 96,000. PT 16.5, INR 1.44, PTT 37.7. AST 36, ALT 24, total bilirubin 0.4, alkaline phosphatase 56. FINAL IMPRESSIONS: 1. Urinary tract infection and prostatitis. 2. Hypertension. 3. Diabetes mellitus. Patient is going to be discharged on cefixime 200 mg twice a day for 7 days, Pyridium 100 mg 3 times a day as needed for burning on urination. We are going to increase the lisinopril to 30 mg daily. Follow up with Dr. Garza in a week. He is going to continue with the Elizondo as per Dr. Garza's instruction. DIET: Diabetic and low-salt diet. JOVAN NG MD Job#: [id number] EV
[2017-07-31] MEDS ORDERED: PYRIDIUM100 MG PO (17:32)
[2017-07-31] MEDS ORDERED: LISINOPRIL10 MG PO (17:33)
== END 2017-07-31 14:15 | disposition home health service (06) | DRG 872 ==
LOC: ER 21:43 → ERHOLD 07-28 02:05 → MED/SURG3 07-28 17:23
PROVIDERS: ADMIT Internal Medicine; ATTEND Internal Medicine
DX: A41.89 Other specified sepsis (principal); N39.0 Urinary tract infection, site not specified; M62.82 Rhabdomyolysis; C79.51 Secondary malignant neoplasm of bone; G62.9 Polyneuropathy, unspecified; N41.9 Inflammatory disease of prostate, unspecified; I10 Essential (primary) hypertension; E11.9 Type 2 diabetes mellitus without complications; Z79.4 Long term (current) use of insulin; N40.1 Benign prostatic hyperplasia with lower urinary tract symptoms; R35.0 Frequency of micturition; S40.012A Contusion of left shoulder, initial encounter; F17.210 Nicotine dependence, cigarettes, uncomplicated; B96.1 Klebsiella pneumoniae [K. pneumoniae] as the cause of diseases classified elsewhere; C80.1 Malignant (primary) neoplasm, unspecified; K57.90 Diverticulosis of intestine, part unspecified, without perforation or abscess without bleeding; M47.892 Other spondylosis, cervical region
CPT/HCPCS: 36415; 51700; 70450; 71045; 72125; 74176; 80048; 80053; 80061; 81001; 82550; 82553; 82948; 83036; 83605; 83735; 83880; 84443; 84484; 85025; 85610; 85730; 87040; 87071; 87086; 87186; 87205; 87400; 93005; 97139; 99285; J0692; J3370; J7030

== ENCOUNTER → 2017-08-10 | Outpatient (CLI) | payer MEDICARE ==
[~2017-08-10] MED LIST changes: +GABAPENTIN300 MG PO; +LASIX20 MG PO; +LASIX40 MG PO; +LISINOPRIL10 MG PO; +PYRIDIUM100 MG PO; +REFRESH TEARS15 ML OU
--- NOTE | 2017-08-10 18:21 | Diagnostic Imaging Report ---
PROCEDURE:US RETROPERITONEAL ( KIDNEY ). COMPARISON:US, US GALLBLADDER, 06/23/2014, 9:25. [facility], CT, CT ABDOMEN/PELVIS WO, 07/27/2017, 22:21. INDICATIONS:CYST OF KIDNEY TECHNIQUE: Bradford-scale and color sonographic images of the bilateral kidneys and bladder where obtained in transverse and longitudinal planes. FINDINGS: RIGHT KIDNEY: 10.1 cm, cortex 1.9 cm Cysts: 2.8 x 2.5 x 2.6 cm and 2.6 x 2.4 x 2.5 cm cystic and anechoic lesions in the superior pole, consistent with simple cysts. Solid masses: None Stones: None Hydronephrosis: None Echogenicity: Normal LEFT KIDNEY: 10.8 cm, cortex 1.8 cm Cysts: None Solid masses: None Stones: None Hydronephrosis: None Echogenicity: Normal Bladder: Decompressed, with Elizondo catheter in place. Prostate: Not visualized. CONCLUSION: 1. Normal bilateral renal size and echogenicity. 2. 2 simple appearing renal cyst in the superior pole of the right kidney, which are stable when compared to CT dated 07/27/2017, and slightly increased in size when compared to prior right upper quadrant ultrasound dated 06/23/2014. Joshua Borja M.D. Dictated by: Joshua Borja M.D. on 08/10/2017 at 18:21 Electronically approved by: Joshua Borja M.D. on 08/10/2017 at 18:21
== END ==
LOC: US 14:57
PROVIDERS: ATTEND Urology
DX: N28.1 Cyst of kidney, acquired (principal)
CPT/HCPCS: 76770

== ENCOUNTER → 2017-08-30 | Day surgery (SDC) | payer MEDICARE ==
[2017-08-28 09:36] LABS: BASOPHILS % 0.4 % (0.0-1.0); EOSINOPHILS # (AUTO) 0.1 (0.0-0.4); EOSINOPHILS % 1.2 % (0.0-6.0); HEMATOCRIT 43.8 % (38.2-49.6); HEMOGLOBIN 14.5 g/dL (14.0-18.0); LYMPHOCYTES # (AUTO) 1.3 (1.0-3.2); LYMPHOCYTES % 19.7 % (18.0-39.1); MEAN CORPUSCULAR HEMOGLOBIN 30.4 pg (28-32); MEAN CORPUSCULAR HGB CONC 33.1 g/dL (31-35); MEAN CORPUSCULAR VOLUME 91.8 fL (81-99); MONOCYTES # (AUTO) 0.5 (0.2-0.8); MONOCYTES % 7.9 % (4.4-11.3); NEUTROPHILS # (AUTO) 4.7 (2.1-6.9); NEUTROPHILS % 70.2 % (38.7-80.0); PLATELET COUNT 139 x10e3/uL (140-360); RED BLOOD COUNT 4.77 x10e6/uL (4.3-5.7); RED CELL DISTRIBUTION WIDTH 13.5 % (11.7-14.4)
[2017-08-28 09:57] LABS: ANION GAP 15.5 mmol/L (8-16); BLOOD UREA NITROGEN 14 mg/dL (7-26); BUN/CREATININE RATIO 14 (6-25); CALCIUM 10.6 mg/dL (8.4-10.2); CARBON DIOXIDE 29 mmol/L (22-29); CHLORIDE 104 mmol/L (98-107); EST GLOMERULAR FILTRATION RATE > 60 ML/MIN (60-); GLUCOSE 113 mg/dL (74-118); POTASSIUM 5.5 mmol/L (3.5-5.1); SODIUM 143 mmol/L (136-145)
--- NOTE | 2017-08-28 11:09 | Diagnostic Imaging Report ---
PROCEDURE: X-RAY CHEST, TWO VIEWS COMPARISON: 07/27/2017. INDICATIONS: PREOPERATIVE FOR PROSTATE SURGERY FINDINGS: Lungs are well-inflated. Symmetric nodular opacities project over the lower lung zones, compatible with nipple shadows. Patchy coarse reticular opacities, unchanged and likely reflective of age-related fibrotic changes. No pleural effusion or pneumothorax. Stable cardiomediastinal contour with tortuosity and atherosclerotic calcification of the thoracic aorta. No overt pulmonary edema. No acute osseous abnormalities. Stable severe anterior compression deformity of L2 relative to CT abdomen and pelvis 07/27/2017 CONCLUSION: No acute cardiopulmonary abnormality. Dictated by: Jensen Washburn M.D. on 08/28/2017 at 11:09 Electronically approved by: Jensen Washburn M.D. on 08/28/2017 at 11:09
[~2017-08-30] MED LIST changes: +ACETAMINOPHEN/CODEINE 300MG - 30MG TAB ONE; +ATROPINE SULFATE 1 MG/ML VIAL ONE; +BELLADONNA/OPIUM 60 MG SUPP PR ONE; +CEFTRIAXONE SOD 1 GM VIAL ONE; +DEXAMETHASONE SOD PHOS INJ 4 MG/ML VIAL ONE; +FENTANYL CITRATE/PF 100MCG/2 ML INJ ONE; +GENTAMICIN 80MG/NS 100 ML 100 ML IV ONE; +IOPAMIDOL 610MG/1ML 300 MG/ML VIAL IV ONE; +LIDOCAINE HCL 2% LOCAL INJ 5 ML SDV VIAL INJ ONE; +ONDANSETRON HCL INJ 2 MG/ML VIAL ONE; +PROPOFOL IV EMULSION 10 MG/ML 20 ML VIAL ONE; +SEVOFLURANE INHAL SOLN 250 ML PEN BTL ONE
--- OUTSIDE RECORDS SUMMARY | 2017-08-30 05:50 | XMS REPORT | Continuity of Care Document ---
Author Author [facility] Organization [facility] Address [address] [place] [address] Phone Unavailable Care Team Providers Care Batch Unloader Name Role Phone MIRZA MARTINEZ (NONSTAFF) DO PCP Insurance Providers Guarantor Red Nielsen Address [address] [place] [address] Email Payer [employer] Medicare Replacement Policy Number [id number] Subscriber's Name Red Nielsen Relationship 18 Self / Same As Patient Group Number [id number] Group Name PPO VALUE Effective Date 16 Advance Directives Directive Response Recorded Date/Time Does the patient have an advance directive? No 07/28/17 7:25pm If yes, is advance directive on file with [facility]? No 01/02/09 10:08pm If not on file with [facility] will patient provide a copy? No 12/01/11 1:25pm Do you have a Directive to Physician? No 07/27/17 9:47pm Do you have a Medical Power of Reexaminer? No 07/27/17 9:47pm Do you have an out of hospital Do Not Resuscitate Order? No 07/27/17 9:47pm Do you have any special needs we should be aware of? No 07/27/17 9:47pm Do you have a support person here with you today? Yes 07/27/17 9:47pm Did patient receive Notice of Privacy Practices? Yes 07/27/17 9:47pm Did patient receive patient rights and responsibilities? Yes 07/27/17 9:47pm Problems Medical Problem Onset Date Status Bronchitis Unknown Acute Contusion of shoulder, left Unknown Fall Unknown UTI (urinary tract infection) Unknown UTI (urinary tract infection) Unknown Weakness Unknown Medications Current Home Medications Medication Dose Units Route Directions Days Qty Instructions Start Date Bimatoprost (Lumigan) 2.5 Ml Drops 1 Drop Ophthalmic Bedtime Carboxymethylcellulose Sodium (Refresh Tears) 15 Ml Drops 1 Drop Each Eye As Needed for Dry Eyes Furosemide (Lasix) 20 Mg Tablet 20 Mg Oral Daily 30 Tab Gabapentin 300 Mg Capsule 300 Mg Oral Daily 60 Cap Lisinopril 10 Mg Tablet 20 Mg Oral Daily 30 Tab Pravastatin Sodium 40 Mg Tablet 40 Mg Oral Bedtime Past Home Medications Medication Directions Ordered Status Atorvastatin Calcium (Lipitor) 40 Mg Tablet, 40 Mg Oral Daily Discontinued Furosemide 20 Mg Tablet, 20 Mg Oral Twice A Day Discontinued Furosemide (Lasix) 40 Mg Tablet, 40 Mg Oral Daily Discontinued Lisinopril 20 Mg Tablet, 20 Mg Oral Twice A Day Discontinued Social History Social History Problem Response Recorded Date/Time Onset Date Status Hx Psychiatric Problems No 07/28/2017 7:25pm Not Applicable Not Applicable Hx Eating Disorder No 07/28/2017 7:25pm Not Applicable Not Applicable Hx Substance Use Disorder No 07/28/2017 7:25pm Not Applicable Not Applicable Hx Depression No 07/28/2017 7:25pm Not Applicable Not Applicable Hx Alcohol Use No 07/28/2017 7:25pm Not Applicable Not Applicable Hx Substance Use Treatment No 07/28/2017 7:25pm Not Applicable Not Applicable Hx Physical Abuse No 07/28/2017 7:25pm Not Applicable Not Applicable Hospital Discharge Instructions No hospital discharge instruction information available. Plan of Care Discharge Date 07/31/17 2:15pm Disposition HOME HEALTH SERVICE Prescriptions See Medication Section Functional Status Query Response Date Recorded FUNCTIONAL STATUS ` July 29, 2017 12:48pm Assistive Devices None July 28, 2017 7:30pm Ambulation Ability Minimum Assistance July 28, 2017 7:30pm Toileting Ability Minimum Assistance July 30, 2017 9:48am Allergies, Adverse Reactions, Alerts Allergen Type Severity Reaction Status Last Updated No Known Drug Allergies Allergy Unknown Active 02/01/10 Immunizations No immunization information available. Vital Signs Acute Vital Signs Vital Response Date/Time Temperature (Fahrenheit) 96.5 degrees F (97.6 - 99.5) 07/31/2017 8:49am Pulse Pulse Rate (adult) 81 bpm (60 - 90) 07/31/2017 8:49am Respiratory Rate 20 bpm (12 - 24) 07/31/2017 8:49am Blood Pressure 146/90 mm Hg 07/31/2017 8:49am Height 5 ft 10 in 07/27/2017 10:05pm Weight 184.25 lb 07/30/2017 2:27am Body Mass Index 26.4 kg/m^2 07/30/2017 2:27am Results Laboratory Results Test Name Result Units Flags Reference Collection Date/Time Result Date/ Time Comments White Blood Count 7.80 x10e3/uL 4.8-10.8 07/29/2017 9:40am 07/29/2017 9 :58am Red Blood Count 4.13 x10e6/uL L 4.3-5.7 07/29/2017 9:40am 07/29/2017 9: 58am Hemoglobin 12.5 g/dL L 14.0-18.0 07/29/2017 9:40am 07/29/2017 9:58am Hematocrit 36.7 % L 38.2-49.6 07/29/2017 9:40am 07/29/2017 9:58am Mean Corpuscular Volume 88.9 fL 81-99 07/29/2017 9:40am 07/29/2017 9: 58am Mean Corpuscular Hemoglobin 30.3 pg 28-32 07/29/2017 9:40am 07/29/2017 9:58am Mean Corpuscular Hemoglobin Concent 34.1 g/dL 31-35 07/29/2017 9:40am 07/29/2017 9:58am Red Cell Distribution Width 12.8 % 11.7-14.4 07/29/2017 9:40am 2017 9:58am Platelet Count 96 x10e3/uL L 140-360 07/29/2017 9:40am 07/29/2017 9: 58am Neutrophils (%) (Auto) 81.3 % H 38.7-80.0 07/29/2017 9:40am 07/29/2017 9 :58am Lymphocytes (%) (Auto) 9.4 % L 18.0-39.1 07/29/2017 9:40am 07/29/2017 9: 58am Monocytes (%) (Auto) 6.9 % 4.4-11.3 07/29/2017 9:40am 07/29/2017 9: 58am Eosinophils (%) (Auto) 1.3 % 0.0-6.0 07/29/2017 9:40am 07/29/2017 9: 58am Basophils (%) (Auto) 0.3 % 0.0-1.0 07/29/2017 9:40am 07/29/2017 9:58am IM GRANULOCYTES % 0.8 % 0.0-1.0 07/29/2017 9:40am 07/29/2017 9:58am Neutrophils # (Auto) 6.4 2.1-6.9 07/29/2017 9:40am 07/29/2017 9:58am Lymphocytes # (Auto) 0.7 L 1.0-3.2 07/29/2017 9:40am 07/29/2017 9: 58am Monocytes # (Auto) 0.5 0.2-0.8 07/29/2017 9:40am 07/29/2017 9:58am Eosinophils # (Auto) 0.1 0.0-0.4 07/29/2017 9:40am 07/29/2017 9:58am Basophils # (Auto) 0.0 0.0-0.1 07/29/2017 9:40am 07/29/2017 9:58am Absolute Immature Granulocyte (auto 0.06 x10e3/uL 0-0.1 07/29/2017 9: 40am 07/29/2017 9:58am Prothrombin Time 16.5 seconds H 11.9-14.5 07/27/2017 9:58pm 07/27/2017 10:39pm Prothromb Time International Ratio 1.44 07/27/2017 9:58pm 2017 10:39pm Oral Anticoagulant Therapy INR Values: 1. Low Intensity Therapy 1.5 - 2.0 2. Moderate Intensity Therapy 2.0 - 3.0 3. High Intensity Therapy(1) 2.5 - 3.5 4. High Intensity Therapy(2) 3.0 - 4.0 5. Panic Value INR > 5.0 Activated Partial Thromboplast Time 37.7 seconds H 23.8-35.5 07/27/2017 9 :58pm 07/27/2017 10:39pm Urine Color YELLOW YELLOW 07/27/2017 11:35pm 07/27/2017 11:46pm Urine Clarity CLOUDY H CLEAR 07/27/2017 11:35pm 07/27/2017 11:46pm Urine Specific [place] 1.015 1.010-1.025 07/27/2017 11:35pm 2017 11:46pm Urine pH 5 5 - 7 07/27/2017 11:35pm 07/27/2017 11:46pm Urine Leukocyte Esterase 2+ H NEGATIVE 07/27/2017 11:35pm 07/27/2017 11:46pm Urine Nitrite POSITIVE H NEGATIVE 07/27/2017 11:35pm 07/27/2017 11: 46pm Urine Protein 2+ H NEGATIVE 07/27/2017 11:35pm 07/27/2017 11:46pm Urine Glucose (UA) NEGATIVE NEGATIVE 07/27/2017 11:35pm 07/27/2017 11 :46pm Urine Ketones 2+ H NEGATIVE 07/27/2017 11:35pm 07/27/2017 11:46pm Urine Urobilinogen 0.2 mg/dL 0.2 - 1 07/27/2017 11:35pm 07/27/2017 11: 46pm Urine Bilirubin NEGATIVE NEGATIVE 07/27/2017 11:35pm 07/27/2017 11: 46pm Urine Blood 4+ H NEGATIVE 07/27/2017 11:35pm 07/27/2017 11:46pm Urine WBC >50 /HPF H 0-5 07/27/2017 11:35pm 07/27/2017 11:55pm Urine RBC 21-50 /HPF H 0-5 07/27/2017 11:35pm 07/27/2017 11:55pm Urine Bacteria MANY /HPF H NONE 07/27/2017 11:35pm 07/27/2017 11:55pm Urine Epithelial Cells RARE /LPF NONE 07/27/2017 11:35pm 07/27/2017 11: 55pm Sodium Level 136 mmol/L 136-145 07/31/2017 6:46am 07/31/2017 7:26am Potassium Level 3.9 mmol/L # 3.5-5.1 07/31/2017 6:46am 07/31/2017 7:26am Chloride Level 106 mmol/L 98-107 07/31/2017 6:46am 07/31/2017 7:26am Influenza Virus Types A,B Antigen NEGATIVE NEGATIVE 07/27/2017 11: 35pm 07/27/2017 11:59pm Carbon Dioxide Level 20 mmol/L L 07/31/2017 6:46am 07/31/2017 7: 26am Anion Gap 13.9 mmol/L 8-07/31/2017 6:46am 07/31/2017 7:26am Blood Urea Nitrogen 9 mg/dL 12-2807/31/2017 6:46am 07/31/2017 7:26am Creatinine 0.72 mg/dL 0.72-1.25 07/31/2017 6:46am 07/31/2017 7:26am BUN/Creatinine Ratio 13 11-2707/31/2017 6:46am 07/31/2017 7:26am Estimat Glomerular Filtration Rate > 60 ML/MIN 6007/31/2017 6:46am 7:26am Ranges were taken from the National Kidney Disease Education Program and the National Kidney Foundation literature. Reference ranges: 60 or greater: Normal 16-59 (for 3 consecutive months): Chronic kidney disease 15 or less: Kidney failure Glucose Level 115 mg/dL 74-118 07/31/2017 6:46am 07/31/2017 7:26am Calcium Level 8.9 mg/dL 8.4-10.2 07/31/2017 6:46am 07/31/2017 7:26am Bedside Glucose 134 mg/dL H 70-120 07/31/2017 10:55am 07/31/2017 11: 57am Meter ID: [id number] Hemoglobin A1c Percent 5.2 % 4.0-7.0 07/29/2017 9:40am 07/29/2017 2: 42pm Lactic Acid Level 10.6 MG/DL 4.5-19.8 07/28/2017 3:50am 07/28/2017 4: 11am Magnesium Level 1.8 MG/DL 1.3-2.1 07/29/2017 9:40am 07/29/2017 2:35pm Total Bilirubin 0.7 mg/dL 0.2-1.2 07/29/2017 9:40am 07/29/2017 10:24am Aspartate Amino Transf (AST/SGOT) 36 IU/L H 5-34 07/29/2017 9:40am 07/29 10:24am Alanine Aminotransferase (ALT/SGPT) 24 IU/L 0-55 07/29/2017 9:40am 10:24am Total Protein 6.7 g/dL 6.5-8.1 07/29/2017 9:40am 07/29/2017 10:24am Albumin 2.8 g/dL L 3.5-5.0 07/29/2017 9:40am 07/29/2017 10:24am Globulin 3.9 g/dL H 2.3-3.5 07/29/2017 9:40am 07/29/2017 10:24am Albumin/Globulin Ratio 0.7 L 0.8-2.0 07/29/2017 9:40am 07/29/2017 10: 24am Alkaline Phosphatase 56 IU/L 40-150 07/29/2017 9:40am 07/29/2017 10: 24am Triglycerides Level 118 MG/DL 0-149 07/29/2017 9:40am 07/29/2017 10: 24am Cholesterol Level 132 MD/DL 0-199 07/29/2017 9:40am 07/29/2017 10:24am Less than 200 mg/dL Low Risk 201 - 239 mg/dL Borderline Risk 240 mg/dl and greater High Risk LDL Cholesterol 72 MG/DL 60-130 07/29/2017 9:40am 07/29/2017 10:24am HDL Cholesterol 36 MG/DL L 40-60 07/29/2017 9:40am 07/29/2017 10:24am Cholesterol/HDL Ratio 3.7 L 3.9-4.7 07/29/2017 9:40am 07/29/2017 10: 24am B-Type Natriuretic Peptide 81.7 pg/mL 0-100 07/27/2017 9:58pm 2017 10:53pm Creatine Kinase 159 IU/L 30-200 07/30/2017 3:30pm 07/30/2017 4:15pm Creatine Kinase MB 5.00 ng/mL 0-5.0 07/28/2017 4:00pm 07/28/2017 4: 50pm Troponin I 0.025 ng/mL 0-0.300 07/28/2017 4:00pm 07/28/2017 4:50pm Thyroid Stimulating Hormone (TSH) 1.221 uIU/mL 0.350-4.940 07/27/2017 9: 58pm 07/27/2017 11:08pm Microbiology Results Procedure Source Organism/Result Collection Date/Time Result Date/Time Result Status Blood Culture Blood STREPTOCOCCUS VIRIDANS 07/27/2017 9:58pm 07/30/2017 9: 33am Preliminary Urine Culture Urine,Elizondo [place] KLEBSIELLA PNEUMONIAE 07/27/2017 11:35pm 8:10am Final Blood Culture Blood NO GROWTH AFTER 48 HOURS 12:47pm 07/31/2017 12:51pm Preliminary Procedures Procedure Status Date Provider(s) Computed tomography of brain without radiopaque contrast Active 07/27/17 MICHELLE BULL MD Computed tomography of cervical spine without contrast Active 07/27/[address] of abdomen and pelvis without contrast Active 07/27/17 MICHELLE BULL MD Ultrasound, renal Active 07/31/17 JAKUB PRO MD Encounters Encounter Location Arrival/Admit Date Discharge/Depart Date Attending Provider Discharged Inpatient [facility] 07/28/17 2:05am 07/31/17 2:15pm JOVAN NG MD
--- NOTE | 2017-10-05 05:35 | Operative Report ---
DATE OF PROCEDURE: August 30, 2017 PREOPERATIVE DIAGNOSIS: 1. Obstructive benign prostatic hypertrophy. 2. Incomplete bladder emptying. POSTOPERATIVE DIAGNOSIS: 1. Obstructive benign prostatic hypertrophy. 2. Incomplete bladder emptying. OPERATIONS PERFORMED: 1. Cystourethroscopy with bilateral ureteral catheterization and retrograde ureteropyelography (separate procedure performed for the incomplete bladder emptying). 2. Interpretation of retrograde ureteropyelography. 3. Supervision of fluoroscopy, no radiologist present. 4. Cystourethroscopy with transurethral resection of the prostate utilizing the PlasmaButton electrode. ANESTHESIA: General. COMPLICATIONS: None. 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 The patient is status post photoselective vaporization of the prostate in 2009. The patient has a Elizondo catheter in place due to urinary retention. He has mild traumatic hypospadias. He is brought to the operating room to further open up his prostate bed in hopes of rendering him catheter free. He is aware of the risks of bleeding, infection, injury to adjacent structures, need for additional procedures, and elected to proceed. OPERATIVE PROCEDURE IN DETAIL: Informed consent was verified. Adam Nielsen was properly identified, taken to the operating room and placed on the cystoscopy table in supine position. Anesthesia was uneventfully begun. The patient was then carefully and gently repositioned in dorsal lithotomy position with all pressure points well padded. His genitalia were prepared and draped in usual sterile fashion. The 22.5-Kosovan cystoscope sheath with visual obturator in place was atraumatically inserted in patient's urethra. It was guided down the urethra, which exhibited some mild inflammation chronic catheter, through the normal sphincteric region, into the prostate bed, which was significant for some regrowth of apical tissue with some visual obstruction. Panendoscopy of the urinary bladder revealed some debris. There were grade 2 trabeculations throughout the bladder, but there were no tumors, no stones, and no diverticula. Normally positioned and configured ureteral orifices were identified. An 8-Kosovan catheter was used to cannulate each ureter, and retrograde ureteral pyelograms were performed. Interpretation of retrograde ureteropyelography: Contrast was instilled in retrograde fashion bilaterally. There were no tumors, no stones, and no diverticula. Unobstructed drainage was observed bilaterally fluoroscopically. There was J-hooking as well as ureteral tortuosity. The resectoscope was atraumatically placed, and we then utilized the PlasmaButton electrode to vaporize the prostate bed from the bladder neck to but never past the verumontanum and down to the surgical capsule. Most of our work was performed on regrowth of tissue mostly in the apical region. Excellent hemostasis was achieved. The resectoscope was withdrawn. Elizondo catheter was placed. It was irrigated to ensure it worked properly. A belladonna and opium suppository was placed, revealing a larger than 50 g prostate that is smooth, nonfluctuant, and without any nodules, and the patient was then uneventfully reversed from anesthesia and taken to recovery room in stable condition. There were no complications to the procedure. He tolerated the procedure well. Explicit postoperative instructions were given. Will follow the patient up in the office, at which point in time will perform uroflowmetry and bladder ultrasonography. Job#: [id number] cc:MIRZA MARTINEZ DO
== END | disposition home or self-care (01) ==
LOC: OR 05:47
PROVIDERS: ATTEND Urology
DX: N40.1 Benign prostatic hyperplasia with lower urinary tract symptoms (principal); N13.8 Other obstructive and reflux uropathy; R39.14 Feeling of incomplete bladder emptying; N32.89 Other specified disorders of bladder; I44.0 Atrioventricular block, first degree; I10 Essential (primary) hypertension; E78.5 Hyperlipidemia, unspecified; F41.9 Anxiety disorder, unspecified; Z01.810 Encounter for preprocedural cardiovascular examination; Z01.812 Encounter for preprocedural laboratory examination; Z01.818 Encounter for other preprocedural examination; Z87.891 Personal history of nicotine dependence
CPT/HCPCS: 36415 ×2; 52005; 52601; 71046; 74420; 80048; 84132; 85025; 93005; C1758; J0461; J0696; J1100; J1580; J2001; J2405; Q9967

== ENCOUNTER 2018-04-17 19:31 | Emergency (ER) | payer MEDICARE ==
[~2018-04-17] VITALS: Ht 330.2 cm; Wt 83.5 kg
[~2018-04-17 19:31] MED LIST changes: -ACETAMINOPHEN/CODEINE 300MG - 30MG TAB ONE; -ATROPINE SULFATE 1 MG/ML VIAL ONE; -BELLADONNA/OPIUM 60 MG SUPP PR ONE; -CEFTRIAXONE SOD 1 GM VIAL ONE; -DEXAMETHASONE SOD PHOS INJ 4 MG/ML VIAL ONE; -FENTANYL CITRATE/PF 100MCG/2 ML INJ ONE; -GENTAMICIN 80MG/NS 100 ML 100 ML IV ONE; -IOPAMIDOL 610MG/1ML 300 MG/ML VIAL IV ONE; -LIDOCAINE HCL 2% LOCAL INJ 5 ML SDV VIAL INJ ONE; -ONDANSETRON HCL INJ 2 MG/ML VIAL ONE; -PROPOFOL IV EMULSION 10 MG/ML 20 ML VIAL ONE; -SEVOFLURANE INHAL SOLN 250 ML PEN BTL ONE
--- OUTSIDE RECORDS SUMMARY | 2018-04-17 19:34 | XMS REPORT | Summary of Care ---
Author Author [facility] Address Unknown Phone Unavailable Encounter HQ Michaelntr_alistone(FIN) [id number] Date(s): 08/17/17 - 08/18/17 [place] [id number] [facility] [address] [place] [address]- [phone] Vital Signs No data available for this section Problem List Condition Effective Dates Status Health Status Informant Glaucoma(Confirmed) Active Hyperlipidemia(Confi Active rmed) Hypertension(Confirm Active ed) BPH (benign Resolved prostatic hyperplasia)(Confirm ed) Peripheral Active neuropathy(Confirmed ) Allergies, Adverse Reactions, Alerts Substance Reaction Severity Status NKDA Active Medications pravastatin 40 mg oral tablet 40 mg=1 tab, PO, Daily, # 90 tab, 1 Refill(s), Pharmacy: [id number] Start Date: 08/17/17 Status: Ordered Results No data available for this section Immunizations No data available for this section Procedures Procedure Date Related Diagnosis Body Site Status Appendectomy Completed Cataract surgery Completed Laser eye surgery Completed TURP - Transurethral resection of prostate Completed Social History Social History Type Response Smoking Status Never smoker; Exposure to Tobacco Smoke None; Cigarette Smoking Last 365 Days No; Reg Smoking Cessation Counseling No entered on: 08/10/17 Assessment and Plan No data available for this section
--- OUTSIDE RECORDS SUMMARY | 2018-04-17 19:34 | XMS REPORT | Summary of Care ---
Author Author Formerly [facility] Address Unknown Phone Unavailable Encounter HQ Encntr_alias(FIN) [id number] Date(s): 05/04/17 - 05/05/17 [facility] [address] [place], [place] [address]409 [phone] Vital Signs No data available for this section Problem List Condition Effective Dates Status Health Status Informant Glaucoma(Confirmed) Active Hyperlipidemia(Confi Active rmed) Hypertension(Confirm Active ed) BPH (benign Resolved prostatic hyperplasia)(Confirm ed) Peripheral Active neuropathy(Confirmed ) Allergies, Adverse Reactions, Alerts Substance Reaction Severity Status NKDA Active Medications No data available for this section Results No data available for this section Immunizations No data available for this section Procedures Procedure Date Related Diagnosis Body Site Appendectomy Cataract surgery Laser eye surgery TURP - Transurethral resection of prostate Social History Social History Type Response Smoking Status Never smoker; Exposure to Tobacco Smoke None; Cigarette Smoking Last 365 Days No; Reg Smoking Cessation Counseling No Assessment and Plan No data available for this section
--- OUTSIDE RECORDS SUMMARY | 2018-04-17 19:34 | XMS REPORT | Summary of Care ---
Author Author [facility] Organization [facility] Address Unknown Phone Unavailable Encounter HQ Rk(RICHY) [id number] Date(s): 01/11/17 - 01/11/17 [facility] [address] [place] [address]- Discharge Disposition: Home or Self Care Attending Physician: Sadia Calderón DO Referring Physician: Sadia Calderón DO Vital Signs No data available for this [...]
--- OUTSIDE RECORDS SUMMARY | 2018-04-17 19:34 | XMS REPORT | Continuity of Care Document ---
Author Author [facility] Address Unknown Phone Unavailable Problems Problem Status Onset Date Classification Date Reported Comments Source DX: S32.020A=WEDGE COMPRESSION FRACTURE Active 12/08/2017 [facility] DX: R93.8=ABNORMAL FINDINGS ON DIAGNOST Active 01/04/2017 [facility] DX: R22.2= Active 12/05/2016 [facility] COMPRESSION FRACTURE Active 10/17/2016 [facility] Glaucoma Active Problem 12/18/2017 [facility] Hyperlipidemia Active Problem 12/18/2017 [facility] Hypertension Active Problem 12/18/2017 [facility] BPH (<span ID="[id number]">Confirmed</span>) Resolved Problem 12/18/2017 [facility] Peripheral neuropathy Active Problem 12/18/2017 [facility] WEDGE COMPRESSION FRACTURE OF UNSP LUMBA Active [facility] Medications Medication Details Route Status Patient Instructions Ordering Provider Order Date Source Furosemide 20 MG Oral Tablet See Instructions, # 90 tab, TAKE 1 TABLET BY MOUTH EVERY DAY, Pharmacy: [facility]/pharmacy #[id number] Active 11/28/2017 [facility] lisinopril 30 mg oral tablet See Instructions, # 90 tab, TAKE 1 TABLET BY MOUTH EVERY DAY, Pharmacy: [facility]/pharmacy #[id number] Active 11/28/2017 [facility] Furosemide 20 MG Oral Tablet 20 mg=1 tab, PO, Daily, # 90 tab, 0 Refill(s), Pharmacy: [facility]/pharmacy #[id number] No Longer Active 09/01/2017 [facility] lisinopril 30 mg oral tablet 30 mg=1 tab, PO, Daily, # 90 tab, 0 Refill(s), Pharmacy: [facility]/pharmacy #[id number] No Longer Active 09/01/2017 [facility] pravastatin 40 mg oral tablet 40 mg=1 tab, PO, Daily, # 90 tab, 1 Refill(s), Pharmacy: [facility] [id number] Active 08/17/2017 [facility] lisinopril 30 mg oral tablet 30 mg=1 tab, PO, Daily, 0 Refill(s) Active 08/10/2017 [facility] gabapentin 300 MG Oral Capsule 300 mg=1 cap, PO, TID, 0 Refill(s) Active 08/10/2017 [facility] Contour Blood Glucose Test Strips 1 ea, MISC, BID-Before Meals, Use for blood glucose monitoring., # 730 ea, Not insulin dependent, Does not use insulin pump, Last DM eval date 02/14/17, 3 Refill(s) Active 06/22/2017 [facility] Allergies, Adverse Reactions, Alerts Substance Category Reaction Severity Reaction type Status Date Reported Comments Source Immunizations Immunization Date Given Site Status Last Updated Comments Source Results Order Name Results Value Reference Range Date Interpretation Comments Source Spine lumbar wo contrast MRI Spine lumbar wo contrast MRI MRI lumbar spine without contrast 12/15/2017 HISTORY: Wedge compression fracture of 2nd lumbar vertebral body. Chronic low back pain, worsening after fall. PROCEDURE: Multiplanar multisequence imaging of the lumbar spine was performed without contrast. Comparison is made to MRI 10/19/[address] 01/11/2017 FINDINGS: Bilateral renal cysts are present, right greater than left. Conus medullaris ends at L1. Right sacral heterogenous lesion is not significantly changed in size measuring 5.3 cm. No new bony lesion is noted. There is a 90% compression fracture at L2 which is unchanged from previous CT. 5 mm of retropulsion of fracture fragments is noted. No new area of abnormal increased edema signal is noted. There is grade 1 anterolisthesis at L4-L5. At L1-L2, no HNP, canal stenosis, or neural foraminal narrowing is present. At L2-L3, mild spinal canal stenosis is present. There is moderate bilateral neural foraminal narrowing due to retropulsion of fracture fragments and mild facet hypertrophy At L3-L4, moderate facet hypertrophy and ligamentum flavum hypertrophy is present. There is moderate annular bulging and posterior lateral osteophytes. This results in severe spinal canal stenosis and severe bilateral neural foraminal narrowing. At L4-L5, medial 4 mm left synovial cyst is noted. There is moderate facet hypertrophy and ligamentum flavum hypertrophy. There is moderate annular bulging and posterior lateral osteophytes resulting in severe spinal canal stenosis and severe bilateral neural foraminal narrowing. At L5-S1, disc space narrowing is present. There are posterior lateral osteophytes resulting in mild bilateral neural foraminal narrowing. No significant spinal canal stenosis is present. IMPRESSION: 1. Severe spinal canal stenosis and severe bilateral neural foraminal narrowing at L3-L4 and L4-L5 due to posterior element hypertrophy, annular bulging, and osteophytes. 2. Unchanged 90% vertebral body compression fracture at L2 with 5 mm of retropulsion. 3. 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 Follow- up imaging in 6 months is suggested. SL: [id number] 12/15/2017 - - Read by: Gucci Siddiqi MD Dictated Date/time: 12/16/17 08:33 Electronically Signed by: Gucci Siddiqi MD 12/16/17 09:15 FINAL REPORT [facility] Chest 2 views DX Chest 2 views DX Patient Name: RED NORTH : 1935; Age: 81 years y/o Male MR: [id number] * CHEST, 2 views HISTORY: R93.8 Abnormal findings on diagnostic imaging of other specified body structures / basilar crackles - R93.8 COMPARISON: 08/01/2014. CT images through the lung bases from an abdominal computed tomography scan performed today were reviewed. TECHNIQUE: Frontal and lateral radiographs of the chest were obtained. FINDINGS: Very small vague densities are noted in the right upper lobe which are unchanged the prior study, probable scarring. There are also very mild nonspecific chronic interstitial changes within the lungs. Symmetrical nodular densities project over the lower chest bilaterally, similar to the prior study. These are felt to represent nipple shadows. The lungs are clear. There are no pleural effusions. The heart and pulmonary vasculature are within normal limits. There are mild atherosclerotic calcifications involving the thoracic aorta. There are mild scattered degenerative changes involving the thoracic spine. The regional skeleton is otherwise unremarkable. IMPRESSION: 1. No active disease. 2. Minimal densities in the right upper lobe are unchanged felt represents scarring. There are also mild chronic nonspecific interstitial changes. SL: [id number] 01/11/2017 - - Read by: Krantih Israel MD Dictated Date/time: 01/11/17 11:14 Electronically Signed by: Kranthi Israel MD 01/11/17 11:16 FINAL REPORT [facility] Abdomen/Pelvis wo IV contrast CT Abdomen/Pelvis wo IV contrast CT Abdomen/Pelvis wo IV contrast CT TECHNIQUE: Contiguous transaxial images of the abdomen and pelvis were performed from the lung bases to the superior pubic rami without IV contrast. COMPARISON: Bone scan 01/11/2017, MRI lumbar spine 10/19/2016 CLINICAL HX: SM-CT DLP doses 498 mGycm - R93.8 Abnormal findings on diagnostic imaging of other specified body structures; pt states he thinks they are lookinf for bone cancer. CT ABDOMEN: Lower Chest: The lung bases are clear. GI Tract: Lack of oral contrast limits evaluation. No evidence suggest small or large bowel obstruction. Scattered colonic diverticula, most prevalent in the sigmoid colon. There is no evidence for free fluid or free air in the abdomen. Tract and Retroperitoneum: No tract calculi are visualized in either collecting system. No hydronephrosis. Bilateral renal cysts. Abdominal viscera: 10 mm cyst, right lobe of liver. The spleen and pancreas demonstrate no gross abnormalities given the limitation of lack of IV contrast. Mild nonspecific thickening of both adrenal glands. Cholelithiasis. Vasculature: Mild aortoiliac atherosclerotic disease. Bone and Soft tissues: Marked compression deformity L2 level. The central portion of vertebral body is wafer thin. Lucent lesion with speckled calcifications noted centrally with more so along the periphery of the fairly large radiographic lesion noted in the right sacrum measuring approximately 4 cm x 2.[address] PELVIS: Bladder and seminal vesicles demonstrate normal morphology. Marked enlargement of prostate gland. Central calcifications. No free fluid is present in the pelvis. IMPRESSION: Marked L2 compression deformity with even greater loss of vertebral body height centrally than on recent MRI of 10/19/2016. Right sacral lucent lesion with speckled calcifications. This more likely represents a primary bone neoplasm than metastasis. Depending on clinical concern and symptomatology, further evaluation with MRI of sacrum without and with contrast or biopsy or repeat short-term CT follow-up is suggested. Cholelithiasis. Liver cyst. Renal cysts. Marked enlargement of prostate gland. Correlation with PSA is recommended. Colonic diverticulosis. No other significant abnormality is noted on the noncontrast CT of the abdomen and pelvis. SL: [id number] 01/11/2017 - - Read by: Ventura Kinsey MD Dictated Date/time: 01/12/17 08:51 Electronically Signed by: Ventura Kinsey MD 01/12/17 09:33 FINAL REPORT [facility] Bone scan NM Bone scan NM WHOLE BODY BONE SCAN: HISTORY: Lumbar compression fracture, possible sacral mass on magnetic resonance imaging. TECHNIQUE: 26.3 mCi of technetium 99m MDP were given intravenously followed by delayed whole-body images. Lateral spot images of the thorax, head and neck and AP spot images of the pelvis were also done. FINDINGS: There is focal intensely increased transverse linear activity in the upper lumbar spine finding corresponding to the L2 vertebra plana demonstrated on the lumbar spine MR of 10/19/[address] done earlier today. There is faintly increased activity in the right sacral wing corresponding to the magnetic resonance imaging abnormality. This lesion shows punctate calcifications on the CT. Increased activity in the posterior elements at L5 is noted, with a corresponding facet arthropathy demonstrated on the CT. Degenerative activity seen at the sternoclavicular joints, right wrist and both knees, right greater than left. There is no other abnormal activity. IMPRESSION: 1. Increased activity in the upper lumbar spine corresponding to the previously demonstrated L2 compression fracture. I suspect this is most likely osteoporotic in origin. 2. Mildly increased activity in the right sacral lesion. This is a low aggressive lesion, possibly an enchondroma. Comparison with previous imaging studies of this area is recommended, if available. If previous imaging studies are not available, this could probably be followed by imaging unless there are discrete focal symptoms, in which case biopsy could be considered. 3. No other bone scan evidence of osseous metastases. [id number] 01/11/2017 - - Read by: Jensen Floyd MD Dictated Date/time: 01/12/17 08:03 Electronically Signed by: Jensen Floyd MD 01/12/17 08:20 FINAL REPORT [facility] Spine lumbar wo contrast MRI Spine lumbar wo contrast MRI Study: Spine lumbar wo contrast MRI 10/19/2016 2:07 PM CDT Patient Name: RED NORTH MR: [id number] : 1935; Age: 81 years y/o Male Ordering Physician: Mirza Dutta DO Clinical Indication: Lumbar compression fracture. Lumbar pain after a fall. Comparison: None TECHNIQUE: Multiplanar T1, T2, and STIR weighted noncontrast MRI of the lumbar spine was performed on the 1.5 Aylin magnet. FINDINGS: ALIGNMENT AND GENERAL ASSESSMENT: Five lumbar type vertebral bodies are assumed for purpose of this dictation with conus medullaris termination at L1. Mild to moderate diffuse lumbar spondylosis manifest by multilevel narrowed, desiccated, and bulging intervertebral discs along with mild endplate degenerative change or marginal osteophytes. An approximately 80-90% compression fracture associated with increased signal and edema is seen involving the L2 vertebral body. Mild retropulsion of fragments is seen at the fracture site associated with mild to moderate facet arthrosis causing moderate spinal canal narrowing. Mild to moderate facet arthrosis is otherwise seen along with postoperative change of laminectomy at L4-L5 associated with grade 1 anterolisthesis of L4 on L5. Rounded incompletely visualized abnormal signal in the right side of the sacrum either represents an atypical appearing rugal fracture, neoplasm, or pathologic sacral fracture. The paraspinal soft tissues are thickened at the L2 compression fracture. Mild bilateral renal cortical atrophy is present associated with small bilateral renal cysts. DISC SPACES: T12-L1: No significant disc protrusion, spinal canal narrowing, or neural foraminal narrowing. L1-L2: Mild diffuse disc bulge causing mild anterior thecal sac compression. Mild bilateral neural foraminal narrowing. L2-L3: Mild diffuse disc bulge coupled with moderate facet arthrosis causing moderate spinal canal narrowing with mild crowding of the lumbar nerve roots centrally within the thecal sac. Moderate to severe bilateral neural foraminal narrowing. L3-L4: Mild diffuse disc bulge associated with moderate facet arthrosis and ligamentum flavum hypertrophy causing moderate spinal canal narrowing with crowding of the lumbar nerve roots centrally within the thecal sac. Moderate to severe bilateral neural foraminal narrowing. L4-L5: Mild diffuse disc bulge accentuated by grade 1 anterolisthesis of L4 on L5 and Moderate to severe facet arthrosis. Severe spinal canal narrowing is present as a result. Moderate to severe bilateral neural foraminal narrowing. L5-S1: No significant disc protrusion, spinal canal narrowing, or neural foraminal narrowing. IMPRESSION: 1. Mild to moderate lumbar spondylosis and facet arthrosis greatest in the mid lower lumbar spine. 2. High-grade 80-90% acute compression fracture or pathologic compression fracture at L2 associated with mild retropulsion of fragments causing moderate spinal canal narrowing. 3. Incompletely visualized abnormal signal in the right side of the sacrum either representing a fracture, neoplasm, or pathologic fracture. Dedicated MR sacrum or CT sacrum is recommended for better characterization. 4. Postoperative change of laminectomy at L4-5 associated with grade 1 anterolisthesis of L4 on L5, mild diffuse disc bulge, and moderate to severe facet arthrosis. Severe spinal canal narrowing and moderate to severe bilateral neural foraminal narrowing are present. 5. Mild diffuse disc bulge at L3-L4 associated with moderate facet arthrosis causing moderate spinal canal narrowing and associated with moderate to severe bilateral neural foraminal narrowing. 6. Mild diffuse disc bulge at L2-L3 coupled moderate facet arthrosis causing moderate spinal canal narrowing and associated with moderate to severe bilateral neural foraminal narrowing. 7. Small bilateral renal cysts. SL: [id number] 10/19/2016 - - Read by: Jacob Robles MD Dictated Date/time: 10/19/16 17:25 Electronically Signed by: Jacob Robles MD 10/19/16 17:35 FINAL REPORT [facility] Vital Signs Vital Sign Value Date Comments Source BMI Calculated 26.39 08/10/2017 [facility] Weight 81.051 08/10/2017 [facility] Height 175.26 cm 08/10/2017 [facility] Systolic (mm Hg) 130 08/10/2017 [facility] Diastolic (mm Hg) 70 08/10/2017 [facility] Temperature Oral (F) 98.1 F 08/10/2017 [facility] Heart Rate 78 08/10/2017 [facility] Encounters Location Location Details Encounter Type Encounter Number Reason For Visit Attending Provider ADM Date DC Date Status Source Outpatient [id number] MIRZA PRAREGINALE 08/25/2015 Active [facility] Outpatient [id number] MIRZA PRANGLE 08/31/2015 Active [facility] Outpatient [id number] MIRZA PRANGLE 07/07/2016 Active [facility] Outpatient [id number] MIRZA PRANGLE 07/26/2016 Active [facility] Outpatient [id number] MIRZA PRANGLE 09/27/2016 [facility] Outpatient [id number] COLTON HERNANDEZ 11/29/2016 [facility] Outpatient [id number] Sadia Calderón 01/11/2017 01/12/2017 [facility] Outpatient [id number] MIRZA PRAREGINALE 03/29/2017 [facility] [place] Phone Message [id number] 05/04/2017 05/06/2017 [facility] [place] Phone Message [id number] 06/22/2017 06/24/2017 [facility] [id number] MIRZA PRANGLE 08/10/2017 [facility] Outpatient [id number] Mirza Thiernongchristiane 08/10/2017 08/11/2017 [facility] Phone Message [id number] 08/17/2017 08/19/2017 [facility] Phone Message [id number] 08/30/2017 09/01/2017 [facility] Phone Message [id number] 09/01/2017 09/03/2017 [facility] Outpatient [id number] Yomaira Gar 12/15/2017 12/16/2017 [facility] Outpatient [id number] COLTON PINEDAH 01/30/2018 [facility] Procedures Procedure Code Date Perfomer Comments Source Appendectomy [id number] [facility] Cataract surgery [id number] [facility] Laser eye surgery [id number] [facility] TURP - Transurethral resection of prostate [id number] [facility] Appendectomy [id number] [facility] Cataract surgery [id number] [facility] Laser eye surgery [id number] [facility] TURP - Transurethral resection of prostate [id number] [facility]
--- OUTSIDE RECORDS SUMMARY | 2018-04-17 19:34 | XMS REPORT | Summary of Care ---
Author Author [facility] Address Unknown Phone Unavailable Encounter JOSE ALFREDO Beckman(RICHY) [id number] Date(s): 08/10/17 - 08/10/17 [place] [id number] [facility] [address] [place] [address]- [phone] Discharge Disposition: Home or Self Care Attending Physician: James Dutta DO Vital Signs Most recent to 1 oldest [Reference Range]: Height 175.26 cm (08/10/17 9:05 AM) Temperature Oral 98.1 DegF [96.4-99.1 DegF] (08/10/17 9:05 AM) Blood Pressure 130/70 mmHg [90-140/60-90 mmHg] (08/10/17 9:05 AM) Peripheral Pulse 78 bpm Rate [60-100 bpm] (08/10/17 9:05 AM) Weight 81.051 kg (08/10/17 9:05 AM) Body Mass Index 26.39 m2 (08/10/17 9:05 AM) Problem List Condition Effective Dates Status Health Status Informant Glaucoma(Confirmed) Active Hyperlipidemia(Confi Active rmed) Hypertension(Confirm Active ed) BPH (benign Resolved prostatic hyperplasia)(Confirm ed) Peripheral Active neuropathy(Confirmed ) Allergies, Adverse Reactions, Alerts Substance Reaction Severity Status NKDA Active Medications gabapentin 300 mg oral capsule 300 mg=1 cap, PO, TID, 0 Refill(s) Start Date: 08/10/17 Status: Ordered lisinopril 30 mg oral tablet 30 mg=1 tab, PO, Daily, 0 Refill(s) Start Date: 08/10/17 Status: Ordered Results No data available for [...]
--- OUTSIDE RECORDS SUMMARY | 2018-04-17 19:34 | XMS REPORT | Summary of Care ---
Author Author [facility] Address Unknown Phone Unavailable Encounter HQ Encntr_alias(FIN) [id number] Date(s): 06/22/17 - 06/23/17 [facility] [address] [place] [address]- [phone] Vital Signs No data available for this section Problem List Condition Effective Dates Status Health Status Informant Glaucoma(Confirmed) Active Hyperlipidemia(Confi Active rmed) Hypertension(Confirm Active ed) BPH (benign Resolved prostatic hyperplasia)(Confirm ed) Peripheral Active neuropathy(Confirmed ) Allergies, Adverse Reactions, Alerts Substance Reaction Severity Status NKDA Active Medications Contour Blood Glucose Test Strips 1 ea, MISC, BID-Before Meals, Use for blood glucose monitoring., # 730 ea, Not i nsulin dependent, Does not use insulin pump, Last DM eval date 02/14/17, 3 Refil l(s) Start Date: 06/22/17 Stop Date: 06/21/21 Status: Ordered Results No data available for [...]
--- OUTSIDE RECORDS SUMMARY | 2018-04-17 19:35 | XMS REPORT | Summary of Care ---
Author Author Zoie Elise M.A. Organization Unknown Address Unknown Phone Unavailable Care Team Providers Care Pool Manager Name Role Phone MIMA BROWER M.D. 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 DO NOT APPLY MORE THAN 16 GRAMS DAILY TO ANY ONE AFFECTED JOINT Quantity: 5 MIMA BROWER M.D. * Start : 28-Feb-2018 Active 100 GM Tube Meloxicam 7.5 MG Oral Tablet TAKE ONE TABLET ONCE A DAY NEEDED FOR PAIN * Quantity: 30 Refills: 0 MIMA BROWER M.D. * Start : 28-Feb-2018 Active MethylPREDNISolone 4 MG Oral Tablet Therapy Pack TAKE DIRECTED * Quantity: 1 Refills: 0 MIMA BROWER M.D. * Start : 28-Feb-2018 Active 21 Tablet Pack Allergies and Adverse Reactions Name Dates Details No Known Drug Allergies (Allergy) Status: Active Procedures Procedure Dates Details Procedures not documented Immunization Name Dates Details Immunizations not documented Social History Name Dates Details Unknown if ever smoked Vital Signs Date Test Result Details [id number] Height 68.5 in Status: Weight 173 lb Status: Body Mass Index Calculated 25.92 kg/m2 Status: Body Surface Area Calculated 1.93 m2 Status: Results Date Description Value Details [id number] [U] XRAY KNEE 4 OR MORE VWS RIGHT [id number] XR KNEE 4 OR MORE VWS RIGHT Images acquired, not reported on this accession number. Plan of Care Name Dates Details Planned Observations Planned Goals not documented Planned Encounters Appointment; MIMA BROWER M.D. On: 30-May-2018 11:00 Interventions Provided Medication Changes* Diclofenac Sodium 1 % Transdermal Gel - Start * Meloxicam 7.5 MG Oral Tablet - Start * MethylPREDNISolone 4 MG Oral Tablet Therapy Pack - Start Labs/Procedures/Imaging* [U] XRAY KNEE 4 OR MORE VWS RIGHT [id number]; Done: 28 Feb 2018 Instructions Name Dates Details Instructions not documented Encounters Appointment; MIMA BROWER M.D. Encounter Diagnosis: Problem not documented On: 28-Feb-2018 11:00
--- OUTSIDE RECORDS SUMMARY | 2018-04-17 19:35 | XMS REPORT | Summary of Care ---
Author Author [facility] Address Unknown Phone Unavailable Encounter HQ Encntr_alistone(FIN) [id number] Date(s): 08/30/17 - 08/31/[address], [address] [place] [address]- [phone] Vital Signs No data available for this [...]
--- OUTSIDE RECORDS SUMMARY | 2018-04-17 19:35 | XMS REPORT | Summary of Care ---
Author Author [facility] Address Unknown Phone Unavailable Encounter HQ Jerry_ash(FIN) [id number] Date(s): 09/01/17 - 09/02/17 [place] [id number] [place] [address]- [phone] Vital Signs No data available for this section Problem List Condition Effective Dates Status Health Status Informant Glaucoma(Confirmed) Active Hyperlipidemia(Confi Active rmed) Hypertension(Confirm Active ed) BPH (benign Resolved prostatic hyperplasia)(Confirm ed) Peripheral Active neuropathy(Confirmed ) Allergies, Adverse Reactions, Alerts Substance Reaction Severity Status NKDA Active Medications furosemide 20 mg oral tablet 20 mg=1 tab, PO, Daily, # 90 tab, 0 Refill(s), Pharmacy: [facility][id number] Start Date: 09/01/17 Stop Date: 11/27/17 Status: Completed furosemide 20 mg oral tablet See Instructions, # 90 tab, TAKE 1 TABLET BY MOUTH EVERY DAY, Pharmacy: [facility] #[id number] Start Date: 11/27/17 Status: Ordered lisinopril 30 mg oral tablet 30 mg=1 tab, PO, Daily, # 90 tab, 0 Refill(s), Pharmacy: [id number] Start Date: 09/01/17 Stop Date: 11/27/17 Status: Completed lisinopril 30 mg oral tablet See Instructions, # 90 tab, TAKE 1 TABLET BY MOUTH EVERY DAY, Pharmacy: [facility] #[id number] Start Date: 11/27/17 Status: Ordered Results No data available for [...]
--- OUTSIDE RECORDS SUMMARY | 2018-04-17 19:35 | XMS REPORT | Summary of Care ---
Author Author [facility] Organization [facility] Address Unknown Phone Unavailable Encounter HQ Rk(FIN) [id number] Date(s): 12/15/17 - 12/15/17 [facility] [address] [place] [address]- Discharge Disposition: Home or Self Care Attending Physician: Yomaira Gar MD Admitting Physician: Yomaira Gar MD Referring Physician: Yomaira Gar MD Vital Signs No data available for this [...]
[2018-04-17] MEDS ORDERED: LIDOCAINE 5% PATCH TP SCH (20:00)
--- NOTE | 2018-04-17 21:02 | Diagnostic Imaging Report ---
EXAMINATION: PA and lateral views of the chest. COMPARISON: None CLINICAL HISTORY: Left rib pain, denies trauma DISCUSSION: Lines/tubes: None. Lungs: The lungs are well inflated and clear. No pneumonia or pulmonary edema. Pleura: No no pleural effusion or pneumothorax. Heart and mediastinum: The cardiomediastinal silhouette is normal. Bones and soft tissues: No acute bony abnormalities. IMPRESSION: No acute cardiopulmonary abnormalities. Signed by: Dr. Andrew Mcbride M.D. on 04/17/2018 8:59 PM
[2018-04-17] MEDS ORDERED: ULTRAM50 MG PO (22:17)
== END 2018-04-17 22:18 | disposition home or self-care (01) ==
LOC: ER 19:31
DX: R07.89 Other chest pain (principal)
CPT/HCPCS: 71046; 99283

== ENCOUNTER 2020-01-04 18:45 | Emergency (ER) | payer MEDICARE ==
[~2020-01-04] VITALS: Ht 177.8 cm; Wt 90.7 kg
[~2020-01-04 18:45] MED LIST changes: +ULTRAM50 MG PO
[2020-01-04] MEDS ORDERED: SODIUM CHLORIDE 0.9% 1000ML 1,000 ML IV STA (19:09)
--- NOTE | 2020-01-04 19:12 | Emergency Department Note ---
History of Present Illnes History of Present Illness Chief Complaint: Genitourinary History of Present Illness This is a 84 year old male Chief Complaint Comment ONSET THIS AM WITH BURNING URINATION, FREQUENCY, URGENCY. DENIES PAIN EXCEPT DURING URINATION(BURNING). HX OF UTI'S. LAST ANTIBIOTIC FOR UTI IN NOVEMBER. . Onset (how long ago): day(s) (2) Location: dysuria Quality: suprapubic Radiation: Denies non-radiation, Denies back, Denies neck, Denies extremity, Denies abdomen, Denies periumbilical, Denies flank, Denies proximal, Denies distal, Denies other Severity: moderate Onset quality: gradual Duration (how long): day(s) (3) Timing of current episode: intermittent Progression: waxing and waning Chronicity: new Context: Denies recent illness, Denies recent surgery, Denies recent immobilization, Denies recent travel, Denies trauma/injury, Denies new medications, Denies hx of DVT/PE, Denies non-compliance w/ medications, Denies other Relieving factors: none Exacerbating factors: none Associated symptoms: Reports fever/chills; Denies denies other symptoms, Denies confusion, Denies chest pain, Denies cough, Denies diaphoresis, Denies headaches, Denies loss of appetite, Denies malaise, Denies nausea/vomiting, Denies rash, Denies seizure, Denies shortness of breath, Denies syncope, Denies weakness, Denies other Treatments prior to arrival: none Past Medical/Family History Physician Review I have reviewed the patient's past medical and family history. Any updates have been documented here. Past Medical History Past Medical History: Hypertension, Hyperlipedemia Other Medical History: GALLSTONES HIGH CHOLESTEROL ARTHRITIS BPH NEUROPATHY Past Surgical History: Knee Replacement, Back Surgery Other Surgery: BACK SURGERY KNEE SURGERY FOOT SURGERY PROSTATE SURGERY Social History Smoking Cessation: Never Smoker Alcohol Use: Social Other Last Tetanus: Unknown Review of Systems Review of Systems Constitutional: Reports as per HPI, Reports fever EENTM: Reports no symptoms Cardiovascular: Reports no symptoms Respiratory: Reports no symptoms Gastrointestinal: Reports no symptoms Genitourinary: Reports as per HPI Musculoskeletal: Reports no symptoms Integumentary: Reports no symptoms Neurological: Reports no symptoms Psychological: Reports no symptoms Endocrine: Reports no symptoms Hematological/Lymphatic: Reports no symptoms Physical Exam Related Data Allergies: Coded Allergies: No Known Drug Allergies (Verified Allergy, Unknown, 02/01/10) Vital signs reviewed: Yes Physical Exam CONSTITUTIONAL Constitutional: Present well-developed, Present well-nourished HENT HENT: Present normocephalic, Present atraumatic, Present oropharynx clear/moist, Present nose normal HENT L/R: Present left ext ear normal, Present right ext ear normal EYES Eyes: Reports PERRL, Reports conjunctivae normal NECK Neck: Present ROM normal PULMONARY Pulmonary: Present effort normal, Present breath sounds normal CARDIOVASCULAR Cardiovascular: Present regular rhythm, Present heart sounds normal, Present capillary refill normal, Present normal rate GASTROINTESTINAL Abdominal: Present soft, Present bowel sounds normal, Present tender (suprapubic) GENITOURINARY Genitourinary: Present exam deferred SKIN Skin: Present warm, Present dry MUSCULOSKELETAL Musculoskeletal: Present ROM normal NEUROLOGICAL Neurological: Present alert, Present oriented x 3, Present no gross motor or sensory deficits PSYCHOLOGICAL Psychological: Present mood/affect normal, Present judgement normal Results Laboratory Lab results reviewed: Yes Imaging Imaging results reviewed: Yes Assessment & Plan Medical Decision Making MDM uti yelonephritis Reassessment Reassessment better Assessment & Plan Final Impression: (1) Tachycardia (2) Acute cystitis (3) Fever Depart Disposition: HOME, SELF-[facility] Meds Active Scripts Tramadol Hcl (ULTRAM) 50 Mg Tablet, 50 MG PO Q6H PRN for PAIN, #10 TAB Prov:FRANCISCO HARDIN, DO 04/17/18 Reported Medications Lisinopril (LISINOPRIL) 10 Mg Tablet, 30 MG PO DAILY, #30 TAB 07/31/17 Furosemide (LASIX) 20 Mg Tablet, 20 MG PO BID, #30 TAB 07/28/17 Gabapentin (GABAPENTIN) 300 Mg Capsule, 300 MG PO DAILY, #60 CAP 07/28/17 Bimatoprost (LUMIGAN) 2.5 Ml Drops, 1 DROP OP HS, BOTTLE 08/14/15 Pravastatin Sodium (PRAVASTATIN SODIUM) 40 Mg Tablet, 40 MG PO HS 08/14/15 SHORTY WHITING MD Jan 04, 2020 19:12
[2020-01-04] MEDS ORDERED: CEFTRIAXONE SOD 1 GM/NS 50 ML 50 ML IV ONE ×2 (19:15→19:50)
[2020-01-04] MEDS ORDERED: ACETAMINOPHEN 325 MG TAB ONE (19:49)
[2020-01-04] MEDS ORDERED: SODIUM CHLORIDE 0.9% 1000ML 1,000 ML ONE (19:50)
[2020-01-04] MEDS ORDERED: ACETAMINOPHEN 325 MG TAB PO ONE (20:00)
--- OUTSIDE RECORDS SUMMARY | 2020-01-04 20:21 | XMS REPORT | Summary of Care ---
Author Author [facility] Address Unknown Phone Unavailable Encounter HQ Encntr_alias(FIN) [id number] Date(s): 02/14/18 - 02/15/18 [facility] [address] [facility] [address] [place], [place] [address]- [phone] Vital Signs No data available for this section Problem List Condition Effective Dates Status Health Status Informan t Glaucoma(Confirmed) Active Hyperlipidemia(Confi Active rmed) Hypertension(Confirm Active ed) BPH (benign Resolved prostatic hyperplasia)(Confirm ed) Peripheral Active neuropathy(Confirmed ) Allergies, Adverse Reactions, Alerts Substance Reaction Severity Status NKDA Active Medications pravastatin 40 mg oral tablet See Instructions, # 90 tab, TAKE 1 TABLET BY MOUTH EVERYDAY AT BEDTIME, Pharmacy : [facility] #[id number] Start Date: 08/13/18 Status: Ordered pravastatin 40 mg oral tablet 40 mg = 1 tab, PO, Bedtime, # 90 tab, 0 Refill(s), Pharmacy: [facility] #[id number] Start Date: 05/14/18 Stop Date: 08/13/18 Status: Completed pravastatin 40 mg oral tablet See Instructions, # 90 tab, TAKE 1 TABLET BY MOUTH EVERY DAY AT BEDTIME, 8 11:45:37 [employer] G[employer] OR [employer], Pharmacy: [facility] #[id number] Start Date: 02/14/18 Stop Date: 05/14/18 Status: Completed Results No data available for this section Immunizations No data available for this section Procedures Procedure Date Related Diagnosis Body Site Status Appendectomy Completed Cataract surgery Completed Laser eye surgery Completed TURP - Transurethral resection of prostate Comple mari Social History Social History Type Response Smoking Status Never smoker; Exposure to T obacco Smoke None; Cigarette Smoking Last 365 Days No; Reg Smoking Cessation Counseli ng No entered on: 01/30/18 Assessment and Plan No data available for this section
--- OUTSIDE RECORDS SUMMARY | 2020-01-04 20:21 | XMS REPORT | Summary of Care ---
Author Author [facility] Organization [facility] Address Unknown Phone Unavailable Care Team Providers Care Social Economist Name Role Phone James Dutta PCP Encounter HQ Laurentr_ash(FIN) [id number] Date(s): 06/28/18 - 06/29/[address] [place], [place] [address]- [phone] Vital Signs No data available for this section Problem List Condition Effective Dates Status Health Status Informan t Glaucoma(Confirmed) Active Hyperlipidemia(Confi Active rmed) Hypertension(Confirm Active ed) BPH (benign Resolved prostatic hyperplasia)(Confirm ed) Peripheral Active neuropathy(Confirmed ) Allergies, Adverse Reactions, Alerts No Known Medication Allergies Medications Blood Glucose Testing Strips Misc/Other 1 ea, MISC, Daily, one touch ultra blue test strips....Last HBA1c:<> Insulin Dep:Y High freq tests for: Poor control Certified Medically Necessary:<>, # 100 ea, Not insulin dependent, Does not use insulin pump, 3 Refill(s) Start Date: 06/28/18 Stop Date: 06/28/18 Status: Discontinued Blood Glucose Testing Strips Misc/Other See Instructions, MISC Daily, # 10 vial, Not insulin dependent, Does not use ins ulin pump, Last DM eval date 11/27/17, 3 Refill(s) Start Date: 06/28/18 Status: Ordered Results No data available for [...]
--- OUTSIDE RECORDS SUMMARY | 2020-01-04 20:21 | XMS REPORT | Continuity of Care Document ---
Author Author [facility] Cordon Emida Address Unknown Phone Unavailable Care Team Providers Care Gasket Inspector Name Role Phone View3 Information Exchange Unavailable Un available Problems Problem Status Onset Date Classification Date Reported Comments Source DX: S32.020A=WEDGE COMPRESSION FRACTURE Active 12/08/2017 [facility] DX: R93.8= ABNORMAL FINDINGS ON DIAGNOST Active 01/04/2017 [facility] DX: R22.2= Active 12/05/2016 [facility] COMPRESSION FRACTURE Active 10/17/2016 [facility] Glaucoma (disorder) Active Problem 01/17/2019 [facility] Hyperlipidemia (disorder) Acti ve Problem [facility] Hypertensive disorder, systemic arterial (disorder) Active Problem 01/17/2019 [facility] Benign prostatic hyperplasia (disorder) Resolved Problem 01/17/2019 [facility] Peripheral nerve disease (disorder) Active Problem [facility] WEDGE COMPRESSION FRACTURE OF UNSP LUMBA Active [facility] Medications Medication Details Route Status Patient Instructions Ordering Provider Order Date Source pravastatin 40 mg oral tablet See Instructions, # 90 tab, TAKE 1 TABLET BY MOUTH EVERYDAY AT BEDTIME, Pharmacy: [facility]/pharmacy #[id number] Active 08/13/2018 [facility] Blood Glucose Testing Strips Misc/Other See Instructions, MISC Daily, # 10 vial, Not insulin dependent, Does not use insulin pump, Last DM eval date 11/27/17, 3 Refill(s) Active 06/28/2018 [facility] Blood Glucose Testing Strips Misc/Other , # 100 ea, Not insulin dependent, Does not use insulin pump, 3 Refill(s) Inactive 06/28/2018 [facility] pravastatin 40 mg oral tablet 40 mg = 1 tab, PO, Bedtime, # 90 tab, 0 Refill(s), Pharmacy: [facility]/pharmacy #[id number] No Longer Active 05/14/2018 [facility] pravastatin 40 mg oral tablet See Instructions, # 90 tab, TAKE 1 TABLET BY MOUTH EVERY DAY AT BEDTIME, 05/14/18 11:45:37 [employer], [id number] Active 02/14/2018 [facility] Furosemide 20 MG Oral Tablet S ee Instructions, # 90 tab, TAKE 1 TABLET BY MOUTH EVERY DAY, [id number] Active 11/28/2017 [facility] lisinopril 30 mg oral tablet S ee Instructions, # 90 tab, TAKE 1 TABLET BY MOUTH EVERY DAY, [id number] Active 11/28/2017 [facility] Furosemide 20 MG Oral Tablet 2 0 mg = 1 tab, PO, Daily, # 90 tab, 0 Refill(s), [id number] No Long[facility] Active 09/01/2017 [facility] lisinopril 30 mg oral tablet 3 0 mg = 1 tab, PO, Daily, # 90 tab, 0 Refill(s), [id number] Active 09/01/2017 [facility] pravastatin 40 mg oral tablet 40 mg = 1 tab, PO, Daily, # 90 tab, 1 Refill(s), [id number] Active 08/17/2017 [facility] lisinopril 30 mg oral tablet 3 0 mg = 1 tab, PO, Daily, 0 Refill(s) Active 08/10/2017 [facility] gabapentin 300 MG Oral Capsule 300 mg = 1 cap, PO, TID, 0 Refill(s) Active 08/10/2017 [facility] Contour Blood Glucose Test Strips 1 ea, MISC, BID-Before Meals, Use for blood glucose monitoring., # 730 ea, Not insulin dependent, Does not use insulin pump, Last DM eval date 02/14/17, 3 Refill(s) Active 06/22/2017 [facility] Allergies, Adverse Reactions, Alerts Substance Category Reaction Severity Reaction type Status Date Reported Comments Source No Known Medication Allergies Assertion Drug aller gy [facility] Immunizations No Data Provided for This Section Results No Data Provided for This Section Pathology Reports No Data Provided for This Section Diagnostic Reports Report Value Date Source Spine lumbar wo contrast MRI M RI lumbar spine without contrast 12/15/2017 HISTORY: Wedge [...] IMPRESSION: 1. Severe spinal canal stenosis and molly re bilateral neural foraminal narrowing at L3-L4 and L4-L5 due to posterior element hypertrophy, annular bulging, and osteophytes. 2. Unchanged 90% vertebral body compress ion fracture at L2 with 5 mm of retropulsion. 3. 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 Follow-up imaging in 6 months is suggested. SL: [id number] 12/15/2017 [facility] Chest 2 views DX Patient Name: RED NORTH : 1935; Age: 81 years y/o Male MR: [id number] * CHEST, 2 views HISTORY: R93.8 Abnormal [...] also mild chronic nonspecific interstitial changes. SL: [id number] 01/11/2017 [facility] Abdomen/Pelvis wo IV contrast CT Abdomen/Pelvis [...] noncontrast CT of the abdomen and pelvis. : [id number] 01/11/2017 [facility] Bone scan NM WHOLE BODY BONE S CAN: HISTORY: Lumbar compression fracture, possible sacral mass [...] IMPRESSION: 1. Increased activity in the upper lumba r spine corresponding to the previously demonstrated L2 compression fracture. I suspect this is most likely osteoporotic in origin. 2. Mildly increased activity in the righ t sacral lesion. This is a low aggressive lesion, possibly an enchondroma. Comparison with previous imaging studies of this area is recommended, if available. If previous imaging studies are not available, this could probably be followed by imaging unless there are discrete focal symptoms, in which case biopsy could be considered. 3. No other bone scan evidence of osseou s metastases. [id number] 01/11/2017 [facility] Spine lumbar wo contrast MRI S tudy: Spine lumbar wo contrast MRI 10/19/2016 2:07 PM CDT Patient Name: RED NORTH MR: [id number] : 1935; Age: 81 years y/o Male [...] spinal canal narrowing. 3. Incompletely visualized abnormal sig nal in the right side of the sacrum [...] 5. Mild diffuse disc bulge at L3-L4 ass ociated with moderate facet arthrosis causing moderate spinal canal narrowing and associated with moderate to severe bilateral neural foraminal narrowing. 6. Mild diffuse disc bulge at L2-L3 cou pled moderate facet arthrosis causing moderate spinal canal narrowing and associated with moderate to severe bilateral neural foraminal narrowing. 7. Small bilateral renal cysts. SL: [id number] 10/19/2016 [facility] Consultation Notes No Data Provided for This Section Discharge Summaries No Data Provided for This Section History and Physicals No Data Provided for This Section Vital Signs Vital Sign Value Date Comments Source BMI Calculated 24.38 01/30/2018 [facility] Weight 78.182 01/30/2018 [facility] Height 179.07 cm 01/30/2018 [facility] Temperature Oral (F) 98.4 F 01/30/2018 [facility] Heart Rate 82 01/30/2018 [facility] Systolic (mm Hg) 111 01/30/2018 [facility] Diastolic (mm Hg) 66 01/30/2018 [facility] BMI Calculated 26.39 08/10/2017 [facility] Weight 81.051 08/10/2017 [facility] Height 175.26 cm 08/10/2017 [facility] Systolic (mm Hg) 130 08/10/2017 [facility] Diastolic (mm Hg) 70 08/10/2017 [facility] Temperature Oral (F) 98.1 F 08/10/2017 [facility] Heart Rate 78 08/10/2017 [facility] Encounters Location Location Details Encounter Type Encounter Number Reason For Visit Attending Provider ADM Date DC Date Status Source Outpatient [id number] MIRZA DUTTA 08/25/2015 Active [facility] Outpatient [id number] MIRZA PRANGLE 08/31/2015 Active [facility] [id number] MIRZA PRANGLE 07/07/2016 Active [facility] [id number] MIRZA PRANGLE 07/26/2016 Active [facility] Outpatient [id number] MIRZA PRANGLE 09/27/2016 Active [facility] [id number] [facility] 11/29/2016 Active [facility] Outpatient [id number] Sadia Stephane 01/11/2017 01/12/2017 [facility] Outpatient [id number] MIRZA PRANGLE 03/29/2017 [facility] Phone Message [id number] 05/04/2017 05/06/2017 [facility] Phone Message [id number] 06/22/2017 06/24/2017 [facility] Outpatient [id number] MIRZA PRANGLE 08/10/2017 [facility] Out[facility] [id number] Mirza Prangle 08/10/2017 08/11/2017 [facility] Phone Message [id number] 08/17/2017 08/19/2017 [facility] Phone Message [id number] 08/30/2017 09/01/2017 [facility] Phone Message [id number] 09/01/2017 09/03/2017 [facility] Outpatient [id number] Yomaira Gar 12/15/2017 12/16/2017 [facility] Outpatient [id number] [facility] 01/30/2018 Active [facility] [id number] [facility] 01[facility]2018 [facility] Phone Message [id number] 02/14/2018 02/16/2018 [facility] Phone Message [id number] 06/25/2018 06/27/2018 [facility] Phone Message [id number] 06/28/2018 06/30/2018 [facility] Procedures Procedure Code Date Perfomer Comments Source Appendectomy [id number] [facility] [place] Cataract surgery [id number] [facility] Laser eye surgery [id number] [facility] TURP - Transurethral resection of prostate [id number] [facility] Mahin ast Assessment and Plan No Data Provided for This Section Plan of Care No Data Provided for This Section Social History Social History Date Source Social History TypeResponse Smoking Status Never smoker; Exposure to Tobacco Smoke None; Cigarette Smoking Last 365 Days No; Reg Smoking Cessation Counseling No entered on: 01/30/18 01/30/2018 [facility] Social History TypeResponse Smoking Status Never smoker; Exposure to Tobacco Smoke None; Cigarette Smoking Last 365 Days No; Reg Smoking Cessation Counseling No entered on: 01/30/18 01/30/2018 [facility] Social History TypeResponse Smoking Status Never smoker; Exposure to Tobacco Smoke None; Cigarette Smoking Last 365 Days No; Reg Smoking Cessation Counseling No entered on: 08/10/17 08/10/2017 [facility] Family History No Data Provided for This Section Advance Directives No Data Provided for This Section Functional Status No Data Provided for This Section
--- OUTSIDE RECORDS SUMMARY | 2020-01-04 20:21 | XMS REPORT | Summary of Care ---
Author Author [facility] Organization [facility] Address Unknown Phone Unavailable Care Team Providers Care Skill Training Program Coordinator Name Role Phone James Dutta PCP Encounter HQ Encntr_alias(FIN) [id number] Date(s): 06/25/18 - 06/26/[address] [place], [place] [address]- [phone] Vital Signs No data available for this section Problem List Condition Effective Dates Status Health Status Informan t Glaucoma(Confirmed) Active Hyperlipidemia(Confi Active rmed) Hypertension(Confirm Active ed) BPH (benign Resolved prostatic hyperplasia)(Confirm ed) Peripheral Active neuropathy(Confirmed ) Allergies, Adverse Reactions, Alerts No Known Medication Allergies Medications No data available for this section [...]
--- OUTSIDE RECORDS SUMMARY | 2020-01-04 20:21 | XMS REPORT | Summary of Care ---
Author Author [facility] Organization [facility] Address Unknown Phone Unavailable Encounter HQ Laurentr_ash(FIN) [id number] Date(s): 01/30/18 - 01/30/18 [facility] [address] [place], [place] [address] [phone] Discharge Disposition: Home or Self Care Attending Physician: Gustabo Garcia MD Referring Physician: James Dutta DO Vital Signs Most recent to 1 oldest [Reference Range]: Height 179.07 cm (01/30/18 9:57 AM) Temperature Oral 98.4 DegF [96.4-99.1 DegF] (01/30/18 9:57 AM) Blood Pressure 111/66 mmHg [90-140/60-90 mmHg] (01/30/18 9:57 AM) Peripheral Pulse 82 bpm Rate [60-100 bpm] (01/30/18 9:57 AM) Weight 78.182 kg (01/30/18 9:57 AM) Body Mass Index 24.38 m2 (01/30/18 9:57 AM) Problem List Condition Effective Dates Status Health Status Informan t Glaucoma(Confirmed) Active Hyperlipidemia(Confi Active rmed) Hypertension(Confirm Active ed) BPH (benign Resolved prostatic hyperplasia)(Confirm ed) Peripheral Active neuropathy(Confirmed ) Allergies, Adverse Reactions, Alerts Substance Reaction Severity Status NKDA Active Medications No Known Medications Results No data available for this section [...]
--- OUTSIDE RECORDS SUMMARY | 2020-01-04 20:22 | XMS REPORT | Summary of Care ---
Author Author [facility] Address Unknown Phone Unavailable Encounter HQ Encntr_alias(FIN) [id number] Date(s): 06/25/18 - 06/26/[address], [address] [place] [address]- [phone] Vital Signs No data available for this [...] TURP - Transurethral resection of prostate Comple mair Social History Social History Type Response Smoking Status Never smoker; Exposure to T obacco Smoke None; Cigarette Smoking Last 365 Days No; Reg Smoking Cessation Counseli ng No entered on: 01/30/18 Assessment and Plan No data available for this section
--- OUTSIDE RECORDS SUMMARY | 2020-01-04 20:22 | XMS REPORT | Continuity of Care Document ---
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 Attphys Unavailable Alexis Garcia Attphys Ghassan Gar Attphys JAKUB PRO Attphys Unavailable Ken Dutta Attphys JOVAN NG Attphys Unavailable Sadia Calderón Attphys Ghassan Gar Admphys JOVAN NG Admphys Unavailable Payers Payer Name Policy Type Policy Number Effective Date Expiration Date Manny kennedy [employer] Medicare Replacement [id number] 2016 00:00:00 [facility] Problems Condition Name Condition Details Condition Category Status Onset Date Resolution Date Last Treatment Date Treating Clinician Comments Source DX: S32.020A=WEDGE COMPRESSION FRACTURE DX: S32.020A=WEDGE COMPRESSION FRACTURE Active 12/08/2017 [facility] Active 2017-12-08 00:00:00 2017-12-15 16:48:00 Ofe Mars DX: R93.8= ABNORMAL FINDINGS ON DIAGNOST DX: R93.8= ABNORMAL FINDINGS ON DIAGNOST Active 01/04/2017 [facility] Active 2017-01-04 00:00:00 2017-01-11 09:43:00 Zen Mars DX: R22.2= DX: R22.2= Active 12/05/2016 [facility] Active 2016-12-05 00:00:00 2017-01-09 15:25:00 [facility] COMPRESSION FRACTURE COMP RESSION FRACTURE Active 10/17/2016 [facility] Active 2016-10-17 00:00:00 2016-10-26 10:38:00 [facility] Limb pain Limb pain Problem HL7.CCDAR2 Active [facility] Localized primary osteoarthritis of lower leg, right L ocalized primary osteoarthritis of lower leg, right Problem HL7.CCDAR2 Active [facility] Bronchitis Bronchitis Problem Active [facility] Contusion of left shoulder Contusion of shoulder, left Problem Active [facility] Fall Fall Problem Active [facility] Urinary tract infection UTI (urinary tract infection) Problem Active [facility] Weakness Weakness Problem Active [facility] Benign prostatic hyperplasia (disorder) Benign prostatic hyperplasia (disorder) Resolved Problem 01/17/2019 [facility] Problem Resolved 2019-01-17 12:38:09 [facility] Glaucoma (disorder) Glau coma (disorder) Active Problem 01/17/2019 [facility] Problem Active 2019-01-17 12:38:09 [facility] Hyperlipidemia (disorder) Hype rlipidemia (disorder) Active Problem 01/17/2019 [facility] Problem Active 2019-01-17 12:38:09 [facility] Hypertensive disorder, systemic arterial (disorder) Hypertensive disorder, systemic arterial (disorder) Active Problem 01/17/2019 [facility] Problem Active 2019-01-17 12:38:09 [facility] 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) Active Problem 01/17/2019 [facility] Problem Active 2019-01-17 12:38:09 Yfn Mars WEDGE COMPRESSION FRACTURE OF UNSP LUMBA WEDGE COMPRESSION FRACTURE OF UNSP LUMBA Active [facility] Diagnosis Active 2016-10-26 10:38:00 [facility] Allergies, Adverse Reactions, Alerts Allergy Name Allergy Type Status Severity Reaction(s) Onset Date Inacti ve Date Treating Clinician Comments Source No Known Medication Allergies No Known Medication Allergies Active [facility] Social History Smoking Status Start Date Stop Date Source Social History [facility] Medications Ordered Medication Name Filled Medication Name Start Date Stop Da te Current Medication? Ordering Clinician Indication Dosage Frequency Signature (SIG) Comments Components Source pravastatin 40 mg oral tablet 2018-08-13 20:32:06 Yes See Instructions, # 90 tab, TAKE 1 TABLET BY MOUTH EVERYDAY AT BEDTIME, Pharmacy: [facility]/pharmacy #[id number] [place] Blood Glucose Testing Strips [facility] 2018-06-28 20:37:00 Yes See Instructions, MISC Daily, # 10 vial, Not insulin dependent, Does not use insulin pump, Last DM eval date 11/27/17, 3 Refill(s) [facility] Blood Glucose Testing Strips [facility] 2018-06-28 20:34:00 No , # 100 ea, Not insulin dependent, Does not use insulin pump, 3 Refill(s) [facility] [address] pravastatin 40 mg oral tablet 2018-05-14 20:54:00 No 40 mg = 1 tab, PO, Bedtime, # 90 tab, 0 Refill(s), Pharmacy: [facility]/pharmacy #[id number] [facility] Diclofenac Sodium 1 % Transdermal Gel Diclofenac Sodium 1 % Transdermal Gel 2018-02-28 00:00:00 Yes MIMA BROWER M.D. APPLY 4 GRAMS TOPICALLY TO AFFECTED AREA (LOWER EXTREMITIES) 4 TIMES DAILY. DO NOT APPLY MORE THAN 16 GRAMS DAILY TO ANY ONE AFFECTED JOINT [facility] Meloxicam 7.5 MG Oral Tablet Meloxicam 7.5 MG Oral Tablet 2018-02-04 00:00:00 Yes MIMA BROWER M.D. TAKE ONE TABLET ONCE A DAY N EEDED FOR PAIN [facility] MethylPREDNISolone 4 MG Oral Tablet Therapy Pack Methy lPREDNISolone 4 MG Oral Tablet Therapy Pack 2018-02-28 00:00:00 Yes MIMA BROWER M.D. 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, Pharmacy: [facility]/pharmacy #[id number] [facility] Furosemide 20 MG Oral Tablet 2017-11-28 03:17:56 Yes See Instructions, # 90 tab, TAKE 1 TABLET BY MOUTH EVERY DAY, Pharmacy: [facility]/pharmacy #[id number] [facility] lisinopril 30 mg oral tablet 2017-11-28 03:17:56 Yes See Instructions, # 90 tab, TAKE 1 TABLET BY MOUTH EVERY DAY, Pharmacy: [facility]/pharmacy #[id number] Ofe Mars Furosemide 20 MG Oral Tablet 2017-09-01 15:23:00 No 20 mg = 1 tab, PO, Daily, # 90 tab, 0 Refill(s), [id number] [address] lisinopril 30 mg oral tablet 2017-09-01 15:23:00 No 30 mg = 1 tab, PO, Daily, # 90 tab, 0 Refill(s), [id number] [place] pravastatin 40 mg oral tablet 2017-08-17 22:35:00 Yes 40 mg = 1 tab, PO, Daily, # 90 tab, 1 Refill(s), Pharmacy: [facility] [id number] [facility] [address] lisinopril 30 mg oral tablet 2017-08-10 15:11:00 Yes 30 mg = 1 tab, PO, Daily, 0 Refill(s) [facility] gabapentin 300 MG Oral Capsule 2017-08-10 15:09:00 Yes 300 mg = 1 cap, PO, TID, 0 Refill(s) Ofe Priscilla nn Contour Blood Glucose Test Strips 2017-06-22 13:43:54 Yes 1 ea, MISC, BID-Before Meals, Use for blood glucose monitoring., # 730 ea, Not insulin dependent, Does not use insulin pump, Last DM eval date 02/14/17, 3 Refill(s) fOe Mars Bimatoprost (Lumigan) 2.5 Ml Drops Bimatoprost (Lumigan) 2.5 Ml Drops Yes 1 Bedtime [facility] Carboxymethylcellulose Sodium (Refresh Tears) [address] sofi Carboxymethylcellulose Sodium (Refresh Tears) 15 Ml Drops Yes 1 As Needed for Dry Eyes [facility] Furosemide (Lasix) 20 Mg Tablet Furosemide (Lasix) 20 Mg Tablet Yes 20 Daily [facility] Gabapentin 300 Mg Capsule Gabapentin 300 Mg Capsule Yes 300 Daily [facility] Lisinopril 10 Mg Tablet Lisinopril 10 Mg Tablet Yes 20 Daily [facility] Pravastatin Sodium 40 Mg Tablet Pravastatin Sodium 40 Mg Tablet Yes [address] [facility] Furosemide 20 Mg Tablet, 20 Mg Oral Furosemide 20 Mg Tablet, 20 Mg Oral 2017-07-28 00:00:00 No 20 Twice A Day [facility] Furosemide (Lasix) 40 Mg Tablet, 40 Mg Oral Furosemide (Lasix) 40 Mg Tablet, 40 Mg Oral 2017-07-28 00:00:00 No [address] [facility] Lisinopril 20 Mg Tablet, 20 Mg Oral Lisinopril 20 Mg Tablet, 20 Mg Oral 2017-07-28 00:00:00 No 20 Tw[address] A Day [facility] Atorvastatin Calcium (Lipitor) 40 Mg Tablet, 40 Mg Ora l Atorvastatin Calcium (Lipitor) 40 Mg Tablet, 40 Mg Oral 2015-08-14 00:00:00 No [address] [facility] Vital Signs Vital Name Observation Time Observation Value Comments Source Height 2018-02-28 12:10:00 68.5 [in_us] [facility] Weight 2018-02-28 12:10:00 173 [lb_av] [facility] Body Mass Index Calculated 2018-02-28 12:10:00 25.92 kg/m2 [facility] BMI Calculated 2018-01-30 14:57:00 Rickyjakub Sharp Weight 2018-01-30 14:57:00 [facility] Height 2018-01-30 14:57:00 179.07 cm [facility] Temperature Oral (F) 2018-01-30 14:57:00 98.4 F [facility] Heart Rate 2018-01-30 14:57:00 [facility] [place] Systolic (mm Hg) 2018-01-30 14:57:00 Yfn [facility] [place] Diastolic (mm Hg) 2018-01-30 14:57:00 Mem orial [place] BMI Calculated 2017-08-10 15:05:00 Rickyjakub [place] Weight 2017-08-10 15:05:00 [facility] Height 2017-08-10 15:05:00 175.26 cm [facility] [place] Systolic (mm Hg) 2017-08-10 15:05:00 Yfn [facility] [place] Diastolic (mm Hg) 2017-08-10 15:05:00 Mem [facility] [place] Temperature Oral (F) 2017-08-10 15:05:00 98.1 F [facility] Heart Rate 2017-08-10 15:05:00 [facility] Procedures Procedure Date / Time Performed Performing Clinician Kusum duncan Ultrasound, renal 2017-07-31 00:00:00 JAKUB PRO [facility] Computed tomography of brain without radiopaque contrast 201 01-04-22 00:00:00 MICHELLE BULL [facility] Computed tomography of cervical spine without contrast 07-27 00:00:00 MICHELLE BULL [facility] CT of abdomen and pelvis without contrast 2017-07-27 00:00:00 SW [facility] Appendectomy [facility] Cataract surgery [facility] n Laser eye surgery [facility] TURP - Transurethral resection of prostate [facility] Encounters Start Date/Time End Date/Time Encounter Type Admission Type [facility] Care Department Encounter ID Source 2018-06-28 13:20:00 2018-06-29 23:59:59 Outpatient [facility] [id number] 2018-06-28 13:20:00 2018-06-29 23:59:59 Outpatient [facility] [id number] 2018-06-25 08:54:00 2018-06-26 23:59:59 Outpatient [facility] [id number] 2018-06-25 08:54:00 2018-06-26 23:59:59 Outpatient [facility] [id number] 2018-02-28 11:00:00 2018-02-28 11:00:00 Appointment; MIMA BROWER M.D. HUANG, EDDIE, M.D. [facility] Orthopedics at [facility] [id number] [facility] 2018-02-14 07:20:00 2018-02-15 23:59:59 Outpatient [facility] [id number] 2018-01-30 09:30:00 2018-01-30 23:59:59 Outpatient Gustabo Garcia MISCHER MISCHER [id number] 2017-12-15 16:45:00 2017-12-15 23:59:00 Outpatient Majmund arYomaira [facility]SE [facility] [id number] 2017-09-01 09:42:00 2017-09-02 23:59:59 Outpatient [facility] [id number] 2017-08-30 12:00:00 2017-08-31 23:59:59 Outpatient [facility] [id number] 2017-08-17 16:22:00 2017-08-18 23:59:59 Outpatient [facility] [id number] 2017-08-10 09:00:00 2017-08-10 23:59:59 Outpatient Thiernothuychristiane Mirza Rogers [facility] [id number] 2017-07-28 02:05:00 2017-07-31 14:15:00 Discharged Inpatient ER [facility] [id number] [facility] 2017-06-22 07:42:00 2017-06-23 23:59:59 Outpatient [facility] [id number] 2017-05-04 10:13:00 2017-05-05 23:59:59 Outpatient [facility] [id number] 2017-01-11 09:33:00 2017-01-11 23:59:00 Outpatient Sadia Allison [facility] [id number] Results Test Description Test Time Test Comments Results Result Comments Source CHEST 2 VIEWS 2018-04-17 20:57:00 [place] [address] Patient Name: RED NORTH MR #: [id number] : 1935 Age/Sex: 83/M Req #: [id number] Adm Physician: Ordered by: FRANCISCO CARL MD Report #: [id number] Location: ER Room/Bed: Procedure: [id number] DX/CHEST 2 VIEWS Exam Date: 04/17/18 Exam Time: 2040 REPORT STATUS: Signed EXAMINATION: PA and lateral views of the chest. COMPARISON: None CLINICAL HISTORY: Left rib pain, denies trauma DISCUSSION: Lines/tubes: None. Lungs: The lungs are well inflated and clear. No pneumonia or pulmonary edema. Pleura: No no pleural effusion or pneumothorax. Heart and mediastinum: The cardiomediastinal silhouette is normal. Bones and soft tissues: No acute bony abnormalities. IMPRESSION: No acute cardiopulmonary abnormalities. Signed by: Dr. Cheryl Negrete M.D. on 04/17/2018 8:59 PM Dictated By: CHERYL NEGRETE MD 60 Transcribed By: SIMEON on 04/17/182058 COPY TO: FRANCISCO CARL MD [U] XRAY KNEE 4 OR MORE VWS RIGHT [id number] 2018-02-28 11:16:00 Images acquired, not reported on this accession number. [facility] Blood Culture 2017-07-31 12:51:00 Test Item Blood Culture (test code = 83446307) NO GROWTH AFTER 48 HOURS [facility] HospitalBedside Atmunrq8299-90-83 11:57:00* Test Item Value Reference Range Interpretation Comments Bedside Glucose (test code = 71166-5) 134 70-120 H Meter ID: [id number] Centerodium Level 2017-07-31 07:26:00* Test Item Value Reference Range Interpretation Comments Sodium Level (test code = 2951-2) 136 136-145 [facility] HospitalPotassium Ccdix7458-94-93 07:26:00* Test Item Value Reference Range Interpretation Comments Potassium Level (test code = 2823-3) 3.9 3.5-5.1 [facility] HospitalChloride Gewxo7812-98-37 07:26:00* Test Item Value Reference Range Interpretation Comments Chloride Level (test code = 2075-0) 106 98-107 [facility] HospitalCarbon Dioxide Sebhe3649-87-05 07:26:00* Test Item Value Reference Range Interpretation Comments Carbon Dioxide Level (test code = 2028-9) 20 22-29 L [facility] HospitalAnion Noj6798-09-61 07:26:00* Test Item Value Reference Range Interpretation Comments Anion Gap (test code = 74640-6) 13.9 8-16 [facility] HospitalBlood Urea Ntnbcqsx6267-63-12 07:26:00* Test Item Value Reference Range Interpretation Comments Blood Urea Nitrogen (test code = 3094-0) 9 7-26 [facility] HospitalCreatinine2018-02-26 07:26:00* Test Item Value Reference Range Interpretation Comments Creatinine (test code = 2160-0) 0.72 0.72-1.25 [facility] HospitalBUN/Creatinine Swkgw0037-17-27 07:26:00* Test Item Value Reference Range Interpretation Comments BUN/Creatinine Ratio (test code = 3097-3) 13 - [facility] HospitalEstimat Glomerular Filtration Rate 2017-07-31 07:26:00* Test Item Value Reference Range Interpretation Comments Estimat Glomerular Filtration Rate (test code = 57517-3) 60- >60 Ranges were taken from the National Kidney Disease Education Program and the [facility] literature.Reference ranges:60 or greater: Tketnl57-06 ( for 3 consecutive months): Chronic kidney disease 15 or less: Kidney failureTexas Health Arlington Memorial HospitalGlucose Tlnzr8512-13-13 07:26:00* Test Item Value Reference Range Interpretation Comments Glucose Level (test code = KQY3281) 115 74-118 [facility] HospitalCalcium Ydhie1541-59-87 07:26:00* Test Item Value Reference Range Interpretation Comments Calcium Level (test code = 26216-9) 8.9 8.4-10.2 [facility] HospitalCreatine Fmbgwe3846-39-73 16:15:00* Test Item Value Reference Range Interpretation Comments Creatine Kinase (test code = 2157-6) 159 30-200 [facility] HospitalBlood Vrytzxn3086-75-65 09:33:00* Test Item Value Reference Range Interpretation Comments Blood Culture (test code = 600-7) Organism: STREPTOCOCCUS VIRIDANS [facility] HospitalHemoglobin A1c Ogdxehm6915-59-12 14:42:00 * Test Item Value Reference Range Interpretation Comments Hemoglobin A1c Percent (test code = Hemoglobin A1c Percent) 5.2 4.0-7.0 [facility] HospitalMagnesium Hszmq4337-74-75 14:35:00* Test Item Value Reference Range Interpretation Comments Magnesium Level (test code = 58626-0) 1.8 1.3-2.1 [facility] Juzplblos8137-12-66 10:24:00* Test Item Value Reference Range Interpretation Comments Total Bilirubin (test code = 1975-2) 0.7 0.2-1.2 [facility] HospitalAspartate Amino Transf (AST/SGOT) 2017-07-29 10:24:00* Test Item Value Reference Range Interpretation Comments Aspartate Amino Transf (AST/SGOT) (test code = Aspartate Amino Transf (AST/SGOT)) 36 5-34 H [facility] HospitalAlanine Aminotransferase (ALT/SGPT) 2017-07-29 10:24:00* Test Item Value Reference Range Interpretation Comments Alanine Aminotransferase (ALT/SGPT) (test code = 1742-6) 24 0-55 [facility] Pvgzcne4981-20-94 10:24:00* Test Item Value Reference Range Interpretation Comments Total Protein (test code = 2885-2) 6.7 6.5-8.1 [facility] HospitalAlbumin2018-02-24 10:24:00* Test Item Value Reference Range Interpretation Comments Albumin (test code = 1751-7) 2.8 3.5-5.0 L [facility] HospitalGlobulin2018-02-24 10:24:00* Test Item Value Reference Range Interpretation Comments Globulin (test code = 38833-2) 3.9 2.3-3.5 H [facility] HospitalAlbumin/Globulin Pklrq1599-41-17 10:24:00 * Test Item Value Reference Range Interpretation Comments Albumin/Globulin Ratio (test code = 1759-0) 0.7 0.8-2.0 L [facility] HospitalAlkaline Ewhabonwzbt6602-36-15 10:24:00* Test Item Value Reference Range Interpretation Comments Alkaline Phosphatase (test code = 6768-6) 56 40-150 [facility] HospitalTriglycerides Daujr0668-01-19 10:24:00* Test Item Value Reference Range Interpretation Comments Triglycerides Level (test code = 2571-8) 118 0-149 [facility] HospitalCholesterol Qwcdb7914-70-97 10:24:00* Test Item Value Reference Range Interpretation Comments Cholesterol Level (test code = 2093-3) 132 0-199 Less than 200 mg/dL Low Uvef110 - 239 mg/dL Borderline Bpxx165 m g/dl and greater High Risk [facility] HospitalLDL Myqjcwjsopk2450-58-09 10:24:00* Test Item Value Reference Range Interpretation Comments LDL Cholesterol (test code = 2089-1) 72 60-130 [facility] HospitalHDL Yodnzmlqvvf3048-23-57 10:24:00* Test Item Value Reference Range Interpretation Comments HDL Cholesterol (test code = 2085-9) 36 40-60 L [facility] HospitalCholesterol/HDL Cklux0407-49-99 10:24:00 * Test Item Value Reference Range Interpretation Comments Cholesterol/HDL Ratio (test code = 9830-1) 3.7 3.9-4.7 L [facility] HospitalWhite Blood Hjkqz1275-82-10 09:58:00* Test Item Value Reference Range Interpretation Comments White Blood Count (test code = 6690-2) 7.80 4.8-10.8 [facility] HospitalRed Blood Gyctw5128-46-51 09:58:00* Test Item Value Reference Range Interpretation Comments Red Blood Count (test code = 789-8) 4.13 4.3-5.7 L [facility] HospitalHemoglobin2018-02-24 09:58:00* Test Item Value Reference Range Interpretation Comments Hemoglobin (test code = 24063-9) 12.5 14.0-18.0 L [facility] HospitalHematocrit2018-02-24 09:58:00* Test Item Value Reference Range Interpretation Comments Hematocrit (test code = 4544-3) 36.7 38.2-49.6 L [facility] HospitalMean Corpuscular Lgtldx6930-61-96 09:58:00* Test Item Value Reference Range Interpretation Comments Mean Corpuscular Volume (test code = 787-2) 88.9 81-99 [facility] HospitalMean Corpuscular Azehgdzlsh7382-40-30 09:58:00* Test Item Value Reference Range Interpretation Comments Mean Corpuscular Hemoglobin (test code = 785-6) 30.3 28-32 [facility] HospitalMean Corpuscular Hemoglobin Concent 2017-07-29 09:58:00* Test Item Value Reference Range Interpretation Comments Mean Corpuscular Hemoglobin Concent (test code = 786-4) 34.1 31-35 [facility] HospitalRed Cell Distribution Jxmym9904-73-25 09:58:00* Test Item Value Reference Range Interpretation Comments Red Cell Distribution Width (test code = 07011-7) 12.8 11.7 -14.4 [facility] HospitalPlatelet Aqjpn1677-18-48 09:58:00* Test Item Value Reference Range Interpretation Comments Platelet Count (test code = 777-3) 96 140-360 L [facility] HospitalNeutrophils (%) (Auto)2017-07-29 09:58:00 * Test Item Value Reference Range Interpretation Comments Neutrophils (%) (Auto) (test code = 95323-3) 81.3 38.7-80.0 H [facility] HospitalLymphocytes (%) (Auto)2017-07-29 09:58:00 * Test Item Value Reference Range Interpretation Comments Lymphocytes (%) (Auto) (test code = 736-9) 9.4 18.0-39.1 L [facility] HospitalMonocytes (%) (Auto)2017-07-29 09:58:00* Test Item Value Reference Range Interpretation Comments Monocytes (%) (Auto) (test code = 5905-5) 6.9 4.4-11.3 [facility] HospitalEosinophils (%) (Auto)2017-07-29 09:58:00 * Test Item Value Reference Range Interpretation Comments Eosinophils (%) (Auto) (test code = 713-8) 1.3 0.0-6.0 [facility] HospitalBasophils (%) (Auto)2017-07-29 09:58:00* Test Item Value Reference Range Interpretation Comments Basophils (%) (Auto) (test code = 706-2) 0.3 0.0-1.0 [facility] HospitalIM GRANULOCYTES %2017-07-29 09:58:00* Test Item Value Reference Range Interpretation Comments IM GRANULOCYTES % (test code = IM GRANULOCYTES %) 0.8 0.0- 1.0 [facility] HospitalNeutrophils # (Auto)2017-07-29 09:58:00* Test Item Value Reference Range Interpretation Comments Neutrophils # (Auto) (test code = 751-8) 6.4 2.1-6.9 [facility] HospitalLymphocytes # (Auto)2017-07-29 09:58:00* Test Item Value Reference Range Interpretation Comments Lymphocytes # (Auto) (test code = 34335-8) 0.7 1.0-3.2 L [facility] HospitalMonocytes # (Auto)2017-07-29 09:58:00* Test Item Value Reference Range Interpretation Comments Monocytes # (Auto) (test code = 742-7) 0.5 0.2-0.8 [facility] HospitalEosinophils # (Auto)2017-07-29 09:58:00* Test Item Value Reference Range Interpretation Comments Eosinophils # (Auto) (test code = 711-2) 0.1 0.0-0.4 [facility] HospitalBasophils # (Auto)2017-07-29 09:58:00* Test Item Value Reference Range Interpretation Comments Basophils # (Auto) (test code = 704-7) 0.0 0.0-0.1 [facility] HospitalAbsolute Immature Granulocyte (auto 2017-07-29 09:58:00* Test Item Value Reference Range Interpretation Comments Absolute Immature Granulocyte (auto (aminata t code = Absolute Immature Granulocyte (auto) 0.06 0-0.1 [facility] HospitalUrine Rknaeqx6884-85-18 08:10:00* Test Item Value Reference Range Interpretation Comments Urine Culture (test code = 630-4) Organism: KLEBSIELLA PNEUMONIAE [facility] HospitalCreatine Kinase HO9352-36-09 16:50:00* Test Item Value Reference Range Interpretation Comments Creatine Kinase MB (test code = 65984-2) 5.00 0-5.0 [facility] HospitalTroponin [id number] 16:50:00* Test Item Value Reference Range Interpretation Comments Troponin I (test code = JEV6435) 0.025 0-0.300 [facility] Hospital[facility] Acid Dorjy7524-80-34 04:11:00* Test Item Value Reference Range Interpretation Comments Lactic Acid Level (test code = Lactic Acid Level) 10.6 4.5- 19.8 [facility] HospitalInfluenza Virus Types A,B Antigen 2017-07-27 23:59:00* Test Item Value Reference Range Interpretation Comments Influenza Virus Types A,B Antigen (test code = 65508-7) NEGATIVE NEGATIVE [facility] HospitalUrine [id number] 23:55:00* Test Item Value Reference Range Interpretation Comments Urine WBC (test code = 5821-4) 50- 0-5 H [facility] [id number] 23:55:00* Test Item Value Reference Range Interpretation Comments Urine RBC (test code = 77570-1) 21-50 0-5 H [facility] Zbmbzjlr3011-67-32 23:55:00* Test Item Value Reference Range Interpretation Comments Urine Bacteria (test code = 34023-4) MANY NONE H [facility] HospitalU[facility] Epithelial Agamh9749-78-83 23:55:00 * Test Item Value Reference Range Interpretation Comments Urine Epithelial Cells (test code = 74039-7) RARE NONE [facility] Drtzk9550-99-12 23:46:00* Test Item Value Reference Range Interpretation Comments Urine Color (test code = 5778-6) YELLOW YELLOW [facility] Qmeppyd5259-55-31 23:46:00* Test Item Value Reference Range Interpretation Comments Urine Clarity (test code = 90201-4) CLOUDY CLEAR H [facility] HospitalU[facility] Specific Ueixhgn8165-10-69 23:46:00 * Test Item Value Reference Range Interpretation Comments Urine Specific [place] (test code = 5811-5) 1.015 1.010-1.02 5 [facility] cE1339-22-09 23:46:00* Test Item Value Reference Range Interpretation Comments Urine pH (test code = 86762-7) 5 5-7 [facility] Leukocyte Uxijmkyi4530-52-36 23:46:00* Test Item Value Reference Range Interpretation Comments Urine Leukocyte Esterase (test code = 5799-2) 2+ NEGATIVE H [facility] Tanoldg4432-70-36 23:46:00* Test Item Value Reference Range Interpretation Comments Urine Nitrite (test code = 91157-0) POSITIVE [facility]GATIVE [facility] Mbarkqt9421-12-73 23:46:00* Test Item Value Reference Range Interpretation Comments Urine Protein (test code = 5804-0) 2+ NEGATIVE H [facility] Glucose (UA)2017-07-27 23:46:00* Test Item Value Reference Range Interpretation Comments Urine Glucose (UA) (test code = 2349-9) NEGATIVE NEGATIVE [facility] Kekuizt1108-70-10 23:46:00* Test Item Value Reference Range Interpretation Comments Urine Ketones (test code = 56695-0) 2+ NEGATIVE H [facility] Bfuoikmzvjyz9627-56-71 23:46:00* Test Item Value Reference Range Interpretation Comments Urine Urobilinogen (test code = 92159-7) 0.2 0.2-1 [facility] Hqizywrlm1192-98-84 23:46:00* Test Item Value Reference Range Interpretation Comments Urine Bilirubin (test code = 1978-6) NEGATIVE NEGATIVE [facility] Kjvaq9648-76-02 23:46:00* Test Item Value Reference Range Interpretation Comments Urine Blood (test code = 90441-4) 4+ NEGATIVE H [facility] HospitalThyroid Stimulating Hormone (TSH) 2017-07-27 23:08:00* Test Item Value Reference Range Interpretation Comments Thyroid Stimulating Hormone (TSH) (test code = 51039-8) 1.221 0.350-4.940 [facility] HospitalB-Type Natriuretic Fbyvclt8998-81-29 22:53:00* Test Item Value Reference Range Interpretation Comments B-Type Natriuretic Peptide (test code = 25650-2) 81.7 0-100 [facility] HospitalProthrombin Gudl6545-21-95 22:39:00* Test Item Value Reference Range Interpretation Comments Prothrombin Time (test code = 5902-2) 16.5 11.9-14.5 H [facility] HospitalProthromb Time International Ratio 2017-07-27 22:39:00* Test Item Value Reference Range Interpretation Comments Prothromb Time International Ratio (test code = 6301-6) 1.44 Oral Anticoagulant Therapy INR Values:1. Low Intensity Therapy 1.5 - 2.02 . Moderate Intensity Therapy 2.0 - 3.03. High Intensity Therapy(1) 2.5 - 3. 54. High Intensity Therapy(2) 3.0 - 4.05. Panic Value INR > 5.0 [facility] HospitalActivated Partial Thromboplast Time 2017-07-27 22:39:00* Test Item Value Reference Range Interpretation Comments Activated Partial Thromboplast Time (test code = 82260-5) 37.7 23.8-35.5 H [facility] HospitalCHEST 2 VIEWS [place] [address] Patient Name: RED NORTH MR #: [id number] : 1935 Age/Sex: 82/M Req #: [id number] Adm Physician: Ordered by: JAKUB PRO MD Report #: [id number] Location: OR Room/Bed: Procedure: [id number] DX/CHEST 2 VIEWS Exam Date: Exam Time: 1025 REPORT STATUS: Signed PRO CEDURE: X-RAY CHEST, TWO VIEWS COMPARISON: 07/27/2017. INDICATIONS: PREOPERAT [place] FOR PROSTATE SURGERY FINDINGS: Lungs are well-inflated. Symmet penelope nodular opacities project over the lower lung zones, compatible with nipp le shadows. Patchy coarse reticular opacities, unchanged and likely reflectiv e of age-related fibrotic changes. No pleural effusion or pneumothorax. Stabl e cardiomediastinal contour with tortuosity and atherosclerotic calcificat ion of the thoracic aorta. No overt pulmonary edema. No acute osseous abno rmalities. Stable severe anterior compression deformity of L2 relative to CT abdomen and pelvis 07/27/2017 CONCLUSION: No acute cardiopulmonary abnormality. Dictated by: Tory Washburn M.D. on 08/28/2017 at 11:09 Tonya ctronically approved by: Tory Washburn M.D. on 08/28/2017 at 11:09 Dictated By: TORY WASHBURN MD 110 COPY TO: JAKUB PRO RENAL RETROPERITONEAL COMP [place] [address] Patient Name: RED NORTH MR #: [id number] : 1935 Age/Sex: 82/M Req #: [id number] Adm Physician: Ordered by: JAKUB PRO MD Report #: [id number] Location: Room/Bed: Procedure: [id number] US/US RENAL RETROPERITONEAL COMP E xam Date: 08/10/17 Exam Time: 1554 REPORT STATU S: Signed PROCEDURE: US RETROPERITONEAL ( KIDNEY ). COMPARISON: US, US GALLBLADDER, 06/23/2014, 9:25. [facility], CT, CT ABDOMEN/PELVIS WO, 07/27/2017, 22:21. INDICATIONS: CYST OF KIDNEY TECHNIQUE: Bradford-scale a nd color sonographic images of the bilateral kidneys and bladder where obtain ed in transverse and longitudinal planes. FINDINGS: RIGHT KIDN EY: 10.1 cm, cortex 1.9 cm Cysts: 2.8 x 2.5 x 2.6 cm and 2.6 x 2.4 x 2.5 cm cy stic and anechoic lesions in the superior pole, consistent with simple cysts. Solid masses: None Stones: None Hydronephrosis: None Echogenicity: Norm al LEFT KIDNEY: 10.8 cm, cortex 1.8 cm Cysts: None Solid masses: None Stones: None Hydronephrosis: None Echogenicity: Normal Bladder: Deco mpressed, with Elizondo catheter in place. Prostate: Not visualized. CO NCLUSION: 1. Normal bilateral renal size and echogenicity. 2. 2 simple ap pearing renal cyst in the superior pole of the right kidney, which are stable when compared to CT dated 07/27/2017, and slightly increased in size when com pared to prior right upper quadrant ultrasound dated 06/23/2014. Joshua Dugan M.D. Dictated by: Joshua Dugan M.D. on 08/10/2017 at 18:21 Electronically approved by: Joshua Dugan M.D. on 8 at 18:21 Dictated By: JOSHUA DUGAN MD Electronically Sign ed By: JOSHUA DUGAN MD on 08/10/17 1821 Transcribed By: DEBBIE on 08/10/17 182 1 COPY TO: JAKUB PRO MD CT ABDOMEN/PELVIS WO [facility] [address] [place] [address] Patient Name: RED NORTH MR #: [id number] : 1935 Age/Sex: 82/M Req #: [id number] Adm Physician: JOVAN CASTREJON MD Ordered by: MICHELLE BULL MD Report #: [id number] Location : MED/SURG3 Room/Bed: [facility] Procedure: [id number] CT/C T ABDOMEN/PELVIS WO Exam Date: 07/27/17 Exam Time: 2 REPORT STATUS: Signed ADDENDUM #1 Addendu m report for typo in the impression #5 EXAM: CT Abdomen and Pelvis WITHOUT contrast INDICATION: Flank pain, stones COMPARISON: None. TECHNIQUE: Abd omen and pelvis were scanned utilizing a multidetector helical scanner from th e lung base to the pubic symphysis without administration of IV contrast. Abse nce of intravenous contrast decreases sensitivity for detection of focal lesio ns and vascular pathology. Coronal and sagittal reformations were obtained. St one protocol is performed. IV CONTRAST: None. ORAL C ONTRAST: Water RADIATION DOSE: Total DLP: 675.59 mGy*cm Estimated effective dose: (DLP x 0.015 x size factor) mSv COM PLICATIONS: None FINDINGS: LINES and TUBES: None. LOWER THORAX: Minimal bibasilar fibrotic changes. Coronary artery disease visualized. H EPATOBILIARY: No focal hepatic lesions. No biliary ductal dilation. G ALLBLADDER: There are few small stones in the gallbladder. No wall thickening . SPLEEN: No splenomegaly. PANCREAS: No focal masses or ductal dilata tion. ADRENALS: No adrenal nodules KIDNEYS/URETERS: No hydronep hrosis. There are 2 cystic lesions in the upper pole of the right kidney measu ring 2.4 cm in diameter and 2.6 cm in diameter. The largest is a slightly hype rdense about 20 Hounsfield units. No stones. GI TRACT: No abnormal distenti on, wall thickening, or evidence of bowel obstruction. There are diverticula within the colon without evidence of diverticulitis. Appendix is not clearly identified. There is however no fat stranding or adenopathy in the right lower quadrant to suggest appendicitis. PELVIC ORGANS/BLADDER: Circumferential b ladder wall thickening most likely due to BPH LYMPH NODES: No lymphadenop athy. VESSELS: There is moderate atherosclerotic disease in the aorta and m ajor arterial branches. PERITONEUM / RETROPERITONEUM: No free air or flui d. BONES: There are degenerative changes in the lumbar spine. Old compressi on deformity of L2 vertebral body near 90% of the vertebral height. SOFT TISSUES: Unremarkable. IMPRESSION: 1. No evidence of nephro lithiasis or hydronephrosis. 2. Right renal upper pole cystic lesions, the la rgest measuring 2.6 cm in diameter is indeterminate. Short-term follow-up rui l ultrasound is recommended. 3. Diverticulosis without evidence of divertic ulitis. 4. Prostatomegaly. 5. Moderate atherosclerotic disease of the thor acoabdominal aorta and branches Signed by: Dr. Ilana Vega M.D. on 07/29/19 18 7:33 PM ORIGINAL REPORT EXAM: CT Abdomen and Pelvis WITHOUT contrast INDICATION: Flank pain, stones COMPARISON: None. TECHNI QUE: Abdomen and pelvis were scanned utilizing a multidetector helical scanner from the lung base to the pubic symphysis without administration of IV contra st. Absence of intravenous contrast decreases sensitivity for detection of foc al lesions and vascular pathology. Coronal and sagittal reformations were obta ined. Stone protocol is performed. IV CONTRAST: None. ORAL CONTRAST: Water RADIATION DOSE: Total DLP: 675.59 mGy*cm Estimated effective dose: (DLP x 0.015 x size factor) mSv COMPLICATIONS: None FINDINGS: LINES and TUBES: None. LOWER T HORAX: Minimal bibasilar fibrotic changes. Coronary artery disease visualized . HEPATOBILIARY: No focal hepatic lesions. No biliary ductal dilation. GALLBLADDER: There are few small stones in the gallbladder. No wall th ickening. SPLEEN: No splenomegaly. PANCREAS: No focal masses or ducta l dilatation. ADRENALS: No adrenal nodules KIDNEYS/URETERS: No hydronephrosis. There are 2 cystic lesions in the upper pole of the right kidn ey measuring 2.4 cm in diameter and 2.6 cm in diameter. The largest is a sligh tly hyperdense about 20 Hounsfield units. No stones. GI TRACT: No abnormal distention, wall thickening, or evidence of bowel obstruction. There are dive rticula within the colon without evidence of diverticulitis. Appendix is not clearly identified. There is however no fat stranding or adenopathy in the rig ht lower quadrant to suggest appendicitis. PELVIC ORGANS/BLADDER: Circumfer ential bladder wall thickening most likely due to BPH LYMPH NODES: No lym phadenopathy. VESSELS: There is moderate atherosclerotic disease in the aor ta and major arterial branches. PERITONEUM / RETROPERITONEUM: No free air or fluid. BONES: There are degenerative changes in the lumbar spine. Old c ompression deformity of L2 vertebral body near 90% of the vertebral height. SOFT TISSUES: Unremarkable. IMPRESSION: 1. No evidence o f nephrolithiasis or hydronephrosis. 2. Right renal upper pole cystic lesions , the largest measuring 2.6 cm in diameter is indeterminate. Short-term follow -up renal ultrasound is recommended. 3. Diverticulosis without evidence of diverticulitis. 4. Prostatomegaly. 5. 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 Ilana Vega M.D. on 07/27 11:03 PM Dictated By: ILANA MONIQUE MD Electronically Mag d By: ILANA MONIQUE MD on 07/29/171932 Transcribed By: SIMEON on 07/27 3834 COPY TO: MICHELLE BULL MD CT CERVICAL SPINE [place] [address] Patient Name: RED NORTH MR #: [id number] : Age/Sex: 82/M Req #: [id number] Adm Physician: Ordered by: MICHELLE BULL MD Report #: [id number] Location: ER Room/Bed: Procedure: [id number] CT/CT CERVICAL SPINE WO Exam Da te: 07/27/17 Exam Time: 2214 REPORT STATUS: Sig alfred History: Fall, near syncope. Comparison studies: None Technique : Axial images were obtained through the cervical region.. Coronal and sagi ttal images reconstructed from the axial data.. Intravenous contrast: None Findings: Fractures: None. Soft tissue injuries: None. Atlantoaxia l articulation: Intact. Alignment: Normal lordosis. No scoliosis. 2 mm, grade 1 retrolisthesis at level C5-C6. Cervicomedullary junction: No abnormalities . The foramen magnum is patent. Soft tissues: Atherosclerotic calcification in bilateral carotid bulb. 5 mm calcified nodule in left lobe of the thyroid gla nd. Vertebrae: No fractures, infection or neoplasm. Degenerative ch anges: Mild degenerative changes in the anterior atlantodental joint. C 3-C 4: Mild degenerative disc disease with vacuum phenomenon. Posterior disc osteo phyte complex without canal stenosis. Mild right and moderate left foraminal s tenosis due to facet and uncovertebral arthrosis. C4-C5: Moderate degenerati ve disc disease with vacuum phenomena and. Mild left foraminal stenosis due to facet and uncovertebral arthrosis. C5-C6: Moderate degenerative disc disease with vacuum phenomenon. Posterior disc osteophyte complex results in mild neftaly l stenosis. Moderate right and severe left foraminal stenosis facet and uncove rtebral arthrosis. C6-C7: Moderate degenerative disc disease with vacuum phe nomenon and. Posterior disc osteophyte complex results in mild canal stenosis. Severe right and moderate left foraminal stenosis due to facet and uncovert ebral arthrosis. IMPRESSION: 1. No acute cervical spine fracture or d islocation. 2. Ligament, spinal cord and or vascular abnormalities cannot be excluded on the basis of this examination. 3. Cervical spondylosis as detailed above. Signed by: Dr. Shanon Malik M.D. on 07/27/2017 10 :45 PM Dictated By: SHANON MALIK MD 44 Transcribed By: SIMEON on 07/27/172244 EMAIL ENGINEER Y TO: MICHELLE BULL MD CT BRAIN WO [place] [address] Patient Name: RED NORTH MR #: [id number] : 1935 Age/Sex: 82/M Req #: [id number] Adm Physician: Ordered by: MICHELLE BULL MD Report #: [id number] Location: ER Room/Bed: Procedure: [id number] CT/CT BRAIN WO Exam Date: 07/27 Exam Time: 2214 REPORT STATUS: Signed EX AMINATION: Head CT without contrast. HISTORY:Fall. COMPARISON:Non e. TECHNIQUE: Multidetector axial images were obtained from the foramen magnum to the vertex without contrast. The images were reconstructed using brain and bone algorithms. Thin section brain images were reformatted into coronal and sagittal planes. Intravenous contrast: None IMAGE QUALITY: Accepta ble. FINDINGS: Skull/scalp: No abnormality. Parenchyma: Nonspec ific bilateral frontoparietal patchy white matter hypodensity are likely relat ed to small vessel ischemic changes. 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 Questionable focal hypodensity in the inferior aspect of the lou m ay either represent an artifact or age indeterminate lacunar infarct. Ar teries: Atherosclerotic calcification in bilateral carotid siphon. Dural s inuses: No abnormal density suggestive of thrombosis. Ventricles: No hydr ocephalus or displacement. Extra-axial spaces: No abnormal density. Brain volume: Generalized age-related cerebral volume loss. Craniocervic al junction: No mass, Chiari malformation, or basilar invagination. Sell a: No mass. Paranasal/mastoid sinuses: Imaged portions unremarkable. IMPRESSION: 1. No acute posttraumatic intracranial abnormality. 2. 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 3. Mild supratentorial wh ite matter microvascular ischemic changes. 4. Generalized age-related cereb ral volume loss. Signed by: Dr. Shanon Malik M.D. on 07/27/2017 10:50 PM Dictated By: SHANON MALIK MD 49 Transcribed By: SIMEON on 07/27/172249 COPY TO: MICHELLE BULL MD CHEST SINGLE (PORTABLE) [place] [address] Patient Name: RED NORTH MR #: [id number] : 1935 Age/Sex: 82/M Req #: [id number] Adm Physician: Ordered by: MICHELLE BULL MD Report #: [id number] Location: ER Room/Bed: Procedure: [id number] DX/CHEST SINGLE (PORTABLE) Exam Date: 07/27/17 Exam Time: 2214 REPORT STATUS: Signed EXAMINATION: CHEST SINGLE (PORTABLE) INDICATION: F ever, tachycardia COMPARISON: 04/23/2014 FINDINGS: TUBES and LINES: None. LUNGS: Lungs are well inflated. Lungs are clear. There is no evidence of pneumonia or pulmonary edema. PLEURA: No pleural effusio n or pneumothorax. HEART AND MEDIASTINUM: The cardiomediastinal silhouette is unremarkable. There are atherosclerotic calcifications within the aorta. BONES AND SOFT TISSUES: No acute osseous lesion. Soft tissues are unrema rkable. UPPER ABDOMEN: No free air under the diaphragm. IMPRESSION : No acute thoracic abnormality. Signed by: Dr. Ilana Vega M.D. on 07/27/2017 10:56 PM Dictated By: ILANA MONIQUE MD Electronically S igned By: ILANA MONIQUE MD on 07/27/172255 Transcribed By: SIMEON on 07/27/172255 COPY TO: MICHELLE BULL MD SHOULDER LEFT COMPLETE [place] [address] Patient Name: RED NORTH MR #: [id number] : Age/Sex: 82/M Req #: [id number] Adm Physician: Ordered by: MICHELLE BULL MD Report #: [id number] Location: ER Room/Bed: Procedure: [id number] DX/SHOULDER LEFT COMPLETE Exam Date: 07/27/17 Exam Time: 2214 REPORT STATUS: S igned SHOULDER LEFT COMPLETE HISTORY: Shoulder pain status post fall COMPARISON: None FINDINGS: Bones: No displaced fracture. Os seous alignment is within normal limits. Joints: The joint spaces are wel l-maintained. Soft tissues: The soft tissues appear unremarkable. IMPRESSION: No acute radiographic abnormality. Signed by: Dr. Ilana Sotelo ra, M.D. on 07/27/2017 10:57 PM Dictated By: ILANA MONIQUE MD Elec tronically Signed By: ILANA MONIQUE MD on 07/27/172256 Transcribed By: SIMEON on 07/27/172256 COPY TO: MICHELLE BULL MD
--- OUTSIDE RECORDS SUMMARY | 2020-01-04 20:22 | XMS REPORT | Summary of Care ---
Author Author [facility] Address Unknown Phone Unavailable Encounter HQ Encntr_alias(FIN) [id number] Date(s): 06/28/18 - 06/29/18 [place] [address] [facility], [address] [place] [address]- [phone] Vital Signs No data available for this section Problem List Condition Effective Dates Status Health Status Informan t Glaucoma(Confirmed) Active Hyperlipidemia(Confi Active rmed) Hypertension(Confirm Active ed) BPH (benign Resolved prostatic hyperplasia)(Confirm ed) Peripheral Active neuropathy(Confirmed ) Allergies, Adverse Reactions, Alerts Substance Reaction Severity Status NKDA Active Medications Blood Glucose Testing Strips Misc/Other 1 [...]
--- NOTE | 2020-01-04 21:33 | Diagnostic Imaging Report ---
EXAMINATION: CXR 1 [facility] INDICATION: Fever COMPARISON: Chest x-ray 04/17/2018 FINDINGS: TUBES and LINES: None. LUNGS: Normal lung volumes. Lungs are clear. No consolidations. PLEURA: No pleural effusion or pneumothorax. HEART AND MEDIASTINUM: The cardiomediastinal silhouette is unremarkable. Aortic calcifications. BONES AND SOFT TISSUES: Healing left lower rib fracture. No acute osseous lesion. Soft tissues are unremarkable. Degenerative changes. UPPER ABDOMEN: No free air under the diaphragm. IMPRESSION: No acute cardiopulmonary radiographic abnormality. Signed by: Rubens Marroquin DO on 01/04/2020 9:30 PM
[2020-01-04 22:03] LABS: BASOPHILS % 0.2 % (0.0-1.0); EOSINOPHILS % 0.3 % (0.0-6.0); HEMATOCRIT 45.2 % (38.2-49.6); LYMPHOCYTES # (AUTO) 1.2 (1.0-3.2); LYMPHOCYTES % 9.3 % (18.0-39.1); MEAN CORPUSCULAR HEMOGLOBIN 29.6 pg (28-32); MEAN CORPUSCULAR HGB CONC 33.2 g/dL (31-35); MEAN CORPUSCULAR VOLUME 89.3 fL (81-99); MONOCYTES # (AUTO) 0.9 (0.2-0.8); MONOCYTES % 6.9 % (4.4-11.3); NEUTROPHILS # (AUTO) 10.5 (2.1-6.9); NEUTROPHILS % 82.8 % (38.7-80.0); PLATELET COUNT 165 x10e3/uL (140-360); RED BLOOD COUNT 5.06 x10e6/uL (4.3-5.7)
[2020-01-04 22:36] VITALS: BP 169/93
== END 2020-01-04 22:34 | disposition home or self-care (01) ==
LOC: FSED 19:08
DX: R50.9 Fever, unspecified (principal); R30.0 Dysuria; N30.00 Acute cystitis without hematuria; R00.0 Tachycardia, unspecified; I10 Essential (primary) hypertension; E78.5 Hyperlipidemia, unspecified
CPT/HCPCS: 36415; 71045; 80053; 81003; 85025; 87040; 87086; 87186; 99284; J0696; J7030

== ENCOUNTER 2020-01-09 20:14 | Inpatient (IN) | payer MEDICARE, OTHER ==
[~2020-01-09] VITALS: Ht 180.3 cm; Wt 85.3 kg
[2020-01-09] MEDS ORDERED: IBUPROFEN 600 MG TAB PO STA (20:46)
[2020-01-09] MEDS ORDERED: SODIUM CHLORIDE 0.9% 1000ML 1,000 ML IV STA ×3 (20:46→21:50)
[2020-01-09] MEDS ORDERED: HYDRALAZINE HCL 20 MG/ML VIAL IV STA (20:51)
--- OUTSIDE RECORDS SUMMARY | 2020-01-09 20:52 | XMS REPORT | Continuity of Care Document ---
Author Author [employer] Address Unknown Phone Unavailable Care Team Providers Care Police Crime Scene Technician Name Role Phone [employer] Unavailable Un available Problems Problem Status Onset Date Classification Date Reported Comments Source DX: S32.020A=WEDGE COMPRESSION FRACTURE Active 12/08/2017 [facility] DX: R93.8= ABNORMAL FINDINGS ON DIAGNOST Active 01/04/2017 [facility] DX: R22.2= Active 12/05/2016 [facility] COMPRESSION FRACTURE Active 10/17/2016 [facility] Glaucoma (disorder) Active Problem 01/17/2019 [facility] Hyperlipidemia (disorder) Acti ve Problem [facility] Hypertensive disorder, systemic arterial (disorder) Active Problem 01/17/2019 [facility] Benign prostatic hyperplasia (disorder) Resolved Problem 01/17/2019 [facility] Peripheral nerve disease (disorder) Active Problem [facility] WEDGE COMPRESSION FRACTURE OF UNSP LUMBA Active [facility] Medications Medication Details Route Status Patient Instructions Ordering Provider Order Date Source pravastatin 40 mg oral tablet See Instructions, # 90 tab, TAKE 1 TABLET BY MOUTH EVERYDAY AT BEDTIME, Pharmacy: [facility]/pharmacy #[id number] Active 08/13/2018 [facility] Blood Glucose Testing Strips Misc/Other See Instructions, MISC Daily, # 10 vial, Not insulin dependent, Does not use insulin pump, Last DM eval date 11/27/17, 3 Refill(s) Active 06/28/2018 [facility] Blood Glucose Testing Strips Misc/Other , # 100 ea, Not insulin dependent, Does not use insulin pump, 3 Refill(s) Inactive 06/28/2018 [facility] pravastatin 40 mg oral tablet 40 mg = 1 tab, PO, Bedtime, # 90 tab, 0 Refill(s), Pharmacy: [facility]/pharmacy #[id number] No Longer Active 05/14/2018 [facility] pravastatin 40 mg oral tablet See Instructions, # 90 tab, TAKE 1 TABLET BY MOUTH EVERY DAY AT BEDTIME, 05/14/18 11:45:37 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, [id number] o Longer Active 02/14/2018 [facility] Furosemide 20 MG Oral Tablet S ee Instructions, # 90 tab, TAKE 1 TABLET BY MOUTH EVERY DAY, [id number] Active 11/28/2017 [facility] lisinopril 30 mg oral tablet S ee Instructions, # 90 tab, TAKE 1 TABLET BY MOUTH EVERY DAY, [id number] Active 11/28/2017 [facility] Furosemide 20 MG Oral Tablet 2 0 mg = 1 tab, PO, Daily, # 90 tab, 0 Refill(s), [id number] No Longer Active 09/01/2017 [facility] lisinopril 30 mg oral tablet 3 0 mg = 1 tab, PO, Daily, # 90 tab, 0 Refill(s), [id number] No Longer Active 09/01/2017 [facility] pravastatin 40 mg oral tablet 40 mg = 1 tab, PO, Daily, # 90 tab, 1 Refill(s), [facility] [id number] Active 08/17/2017 [facility] lisinopril 30 mg oral tablet 3 0 mg = 1 tab, PO, Daily, 0 Refill(s) Active 08/10/2017 [facility] gabapentin 300 MG Oral Capsule 300 mg = 1 cap, PO, TID, 0 Refill(s) Active 08/10/2017 [facility] Contour Blood Glucose Test Strips 1 ea, MISC, BID-Before Meals, Use for blood glucose monitoring., # 730 ea, Not insulin dependent, Does not use insulin pump, Last DM eval date 02/14/17, 3 Refill(s) Active 06/22/2017 [facility] Allergies, Adverse Reactions, Alerts Substance Category Reaction Severity Reaction type Status Date Reported Comments Source No Known Medication Allergies Assertion Drug aller gy [facility] Immunizations No Data Provided for This Section [...] 6 months is suggested. SL: [id number] 12/15/2017 [facility] Chest 2 views DX Patient Name: RED NORTH : 1935; Age: 81 years y/o Male MR: [id number] * CHEST, 2 views HISTORY: R93.8 Abnormal [...] also mild chronic nonspecific interstitial changes. SL: [id number] 01/11/2017 [facility] Abdomen/Pelvis wo IV contrast CT Abdomen/Pelvis [...] CT of the abdomen and pelvis. : [id number] 01/11/2017 [facility] Bone scan NM WHOLE BODY BONE [...] bone scan evidence of osseou s metastases. [id number] 01/11/2017 [facility] Spine lumbar wo contrast MRI S tudy: Spine lumbar wo contrast MRI 10/19/2016 2:07 PM CDT Patient Name: RED NORTH MR: [id number] : 1935; Age: 81 years y/o Male [...] narrowing. 7. Small bilateral renal cysts. SL: [id number] 10/19/2016 [facility] Consultation Notes No Data Provided for This Section Discharge Summaries No Data Provided for This Section History and Physicals No Data Provided for This Section Vital Signs Vital Sign Value Date Comments Source BMI Calculated 24.38 01/30/2018 [facility] Weight 78.182 01/30/2018 [facility] Height 179.07 cm 01/30/2018 [facility] Temperature Oral (F) 98.4 F 01/30/2018 [facility] Heart Rate 82 01/30/2018 [facility] Systolic (mm Hg) 111 01/30/2018 [facility] Diastolic (mm Hg) 66 01/30/2018 [facility] BMI Calculated 26.39 08/10/2017 [facility] [...] ADM Date DC Date Status Source Outpatient [id number] MIRZA DUTTA 08/25/2015 Active [facility] Outpatient [id number] MIRZA PRANGLE 08/31/2015 [facility] [id number] MIRZA PRANGLE 07/07/2016 [facility] [id number] MIRZA PRANGLE 07/26/2016 Active [facility] Outpatient [id number] MRIZA PRANGLE 09/27/2016 [facility] [id number] [facility] 11/29/2016 Active [facility] Outpatient [id number] Sadia Stephane 01/11/2017 01/12/2017 [facility] Outpatient [id number] MIRZA PRANGLE [facility]/29/2017 [facility] Phone Message [id number] 05/04/2017 05/06/2017 [facility] Phone Message [id number] 06/22/2017 06/24/2017 [facility] Outpatient [id number] MIRZA PRANGLE 08/10/2017 [facility] [id number] Mirza Prangle 08/10/2017 08/11/2017 [facility] Phone Message [id number] 08/17/2017 08/19/2017 [facility] Phone Message [id number] 08/30/2017 09/01/2017 [facility] Phone Message [phone] 09/01/2017 09/03/2017 [facility] Outpatient [id number] Yomaira Gar 12/15/2017 12/16/2017 [facility] Outpatient [id number] [facility] 01[facility]30/2018 Active [facility] [id number] [facility]2018 01/31/2018 [facility] Phone Message [id number] 02/14/2018 02/16/2018 [facility] Phone Message [phone] 06/25/2018 06/27/2018 [facility] Phone Message [phone] 06/28/2018 06/30/2018 [facility] Procedures Procedure Code Date Perfomer Comments Source Appendectomy [id number] [facility] [place] Cataract surgery [id number] [facility] Laser eye surgery [id number] [facility] TURP - Transurethral resection of prostate [id number] [facility] Vinayak Mahin ast Assessment and Plan No Data Provided for This Section Plan of Care No Data Provided for This Section Social History Social History Date Source Social History TypeResponse Smoking Status Never smoker; Exposure to Tobacco Smoke None; Cigarette Smoking Last 365 Days No; Reg Smoking Cessation Counseling No entered on: 01/30/18 01/30/2018 [facility] Social History TypeResponse Smoking Status Never smoker; Exposure to Tobacco Smoke None; Cigarette Smoking Last 365 Days No; Reg Smoking Cessation Counseling No entered on: 01/30/18 01/30/2018 [facility] Social History TypeResponse Smoking Status Never smoker; Exposure to Tobacco Smoke None; Cigarette Smoking Last 365 Days No; Reg Smoking Cessation Counseling No entered on: 08/10/17 08/10/2017 [facility] Family History No Data Provided for This Section Advance Directives No Data Provided for This Section Functional Status No Data Provided for This Section
--- OUTSIDE RECORDS SUMMARY | 2020-01-09 20:53 | XMS REPORT | Continuity of Care Document ---
Author Author [facility] t Organization [facility] Address [address] [place] [address] Phone Unavailable Care Team Providers Care Link Trainer Maintenance Man Name Role Phone MD Manny WOODS PCP SHORTY WHITING Attphys Unavailable Manny CARL Attphys Unavailable MIMA BROWER M.D. Attphys Unavailable Alexis Garcia Attphys JimbodaGhassan pierre Attphys JAKUB PRO Attphys Unavailable Ken Dutta Attphys HERNANDEZ, JOVAN Attphys Unavailable Sadia Calderón Attphys JimbodaGhassan pierre Admphys HERNANDEZFREDY VALENTINIS Admphys Unavailable Payers Payer Name Policy Type Policy Number Effective Date Expiration Date Manny kennedy [employer] Medicare Replacement [id number] 2019 00:00:0 0 [facility] Problems Condition Name Condition Details Condition Category Status Onset Date Resolution Date Last Treatment Date Treating Clinician Comments Source DX: S32.020A=WEDGE COMPRESSION FRACTURE DX: S32.020A=WEDGE COMPRESSION FRACTURE Active 12/08/2017 [facility] Diagnosis Active 2017-12-08 00:00:00 2017-12-15 16:48:00 Ofe Mars DX: R93.8= ABNORMAL FINDINGS ON DIAGNOST DX: R93.8= ABNORMAL FINDINGS ON DIAGNOST Active 01/04/2017 [facility] Diagnosis Active 2017-01-04 00:00:00 2017-01-11 09:43:00 Zen Mars DX: R22.2= DX: R22.2= Active 12/05/2016 [facility] Active 2016-12-05 00:00:00 2017-01-09 15:25:00 Ofe Mars COMPRESSION FRACTURE COMP RESSION FRACTURE Active 10/17/2016 [facility] Active 2016-10-17 00:00:00 2016-10-26 10:38:00 Ofe Mars Limb pain Limb pain Problem HL7.CCDAR2 Active [facility] Localized primary osteoarthritis of lower leg, right L ocalized primary osteoarthritis of lower leg, right Problem HL7.CCDAR2 Active [facility] Bronchitis Bronchitis Problem Active [facility] Contusion of left shoulder Contusion of shoulder, left Problem Active [facility] Fall Fall Problem Active [facility] Urinary tract infection UTI (urinary tract infection) Problem Active [facility] Weakness Weakness Problem Active [facility] Tachycardia Problem Active [facility] Acute cystitis Problem Active [facility] Fever Problem Active [facility] Benign prostatic hyperplasia (disorder) Benign prostatic hyperplasia (disorder) Resolved Problem 01/17/[address] [facility] Problem Resolved 2019-01-17 12:38:09 Ofe Mars Glaucoma (disorder) Glau coma (disorder) Active Problem 01/17/[address] [facility] Problem Active 2019-01-17 12:38:09 Ofe Mars Hyperlipidemia (disorder) Hype rlipidemia (disorder) Active Problem 01/17/[address] [facility] Problem Active 2019-01-17 12:38:09 Ofe Mars Hypertensive disorder, systemic arterial (disorder) Hypertensive disorder, systemic arterial (disorder) Active Problem 01/17/[address] [facility] Problem Active 2019-01-17 12:38:09 Ofe Mars 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) Active Problem 01/17/[address] [facility] Problem Active 2019-01-17 12:38:09 Yfn Mars WEDGE COMPRESSION FRACTURE OF UNSP LUMBA WEDGE COMPRESSION FRACTURE OF UNSP LUMBA Active [facility] Active 2016-10-26 10:38:00 [facility] Allergies, Adverse Reactions, Alerts Allergy Name Allergy Type Status Severity Reaction(s) Onset Date Inacti ve Date Treating Clinician Comments Source No Known Medication Allergies No Known Medication Allergies Active [facility] Social History Social Habit Start Date Stop Date Quantity Comments Source Sex Assigned At 1935 00:00:00 1935 00:00:00 Male [facility] Smoking Status Start Date Stop Date Source Social History [facility] Medications Ordered Medication Name Filled Medication Name Start Date Stop Da te Current Medication? Ordering Clinician Indication Dosage Frequency Signature (SIG) Comments Components Source pravastatin 40 mg oral tablet 2018-08-13 20:32:06 Yes See Instructions, # 90 tab, TAKE 1 TABLET BY MOUTH EVERYDAY AT BEDTIME, Pharmacy: [facility]/pharmacy #[id number] [facility] Blood Glucose Testing Strips [facility]/Other 2018-06-28 20:37:00 Yes See Instructions, MISC Daily, # 10 vial, Not insulin dependent, Does not use insulin pump, Last DM eval date 11/27/17, 3 Refill(s) [facility] Blood Glucose Testing Strips [facility]Other 2018-06-28 20:34:00 No , # 100 ea, Not insulin dependent, Does not use insulin pump, 3 Refill(s) [facility] pravastatin 40 mg oral tablet 2018-05-14 20:54:00 No 40 mg = 1 tab, PO, Bedtime, # 90 tab, 0 Refill(s), Pharmacy: [facility]/pharmacy #[id number] [facility] Tramadol Hcl (Ultram) 50 Mg TABLET Tramadol Hcl (Ultram) 50 Mg TABLET 2018-04-17 21:17:00 Yes 50 Every 6 Hours as needed for P ain [facility] Diclofenac Sodium 1 % Transdermal Gel Diclofenac Sodium 1 % Transdermal Gel 2018-02-28 00:00:00 Yes MIMA BROWER M.D. APPLY 4 GRAMS TOPICALLY TO AFFECTED AREA (LOWER EXTREMITIES) 4 TIMES DAILY. DO NOT APPLY MORE THAN 16 GRAMS DAILY TO ANY ONE AFFECTED JOINT [facility] Meloxicam 7.5 MG Oral Tablet Meloxicam 7.5 MG Oral Tablet 2018-02-04 6 00:00:00 Yes MIMA BROWER M.D. TAKE ONE TABLET ONCE A DAY N EEDED FOR PAIN [facility] MethylPREDNISolone 4 MG Oral Tablet Therapy Pack Isha lPREDNISolone 4 MG Oral Tablet Therapy Pack 2018-02-28 00:00:00 Yes MIMA BROWER M.D. TAKE DIRECTED 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, Pharmacy: [facility]/pharmacy #[id number] [facility] [place] Furosemide 20 MG Oral Tablet 2017-11-28 03:17:56 Yes See Instructions, # 90 tab, TAKE 1 TABLET BY MOUTH EVERY DAY, [id number] [place] lisinopril 30 mg oral tablet 2017-11-28 03:17:56 Yes See Instructions, # 90 tab, TAKE 1 TABLET BY MOUTH EVERY DAY, [id number] [place] Furosemide 20 MG Oral Tablet 2017-09-01 15:23:00 No 20 mg = 1 tab, PO, Daily, # 90 tab, 0 Refill(s), Pharmacy: [id number] mg oral tablet 2017-09-01 15:23:00 No 30 mg = 1 tab, PO, Daily, # 90 tab, 0 Refill(s), [id number] pravastatin 40 mg oral tablet 2017-08-17 22:35:00 Yes 40 mg = 1 tab, PO, Daily, # 90 tab, 1 Refill(s), [facility] [id number] Ofe Mars lisinopril 30 mg oral tablet 2017-08-10 15:11:00 Yes 30 mg = 1 tab, PO, Daily, 0 Refill(s) Ofe Mars gabapentin 300 MG Oral Capsule 2017-08-10 15:09:00 Yes 300 mg = 1 cap, PO, TID, 0 Refill(s) Ofe Wells nn Contour Blood Glucose Test Strips 2017-06-22 13:43:54 Yes 1 ea, MISC, BID-Before Meals, Use for blood glucose monitoring., # 730 ea, Not insulin dependent, Does not use insulin pump, Last DM eval date 02/14/17, 3 Refill(s) [facility] Bimatoprost (Lumigan) 2.5 Ml DROPS Bimatoprost (Lumigan) 2.5 Ml DROPS Yes 1 Bedtime [facility] Furosemide (Lasix) 20 Mg TABLET Furosemide (Lasix) 20 Mg TABLET Yes 20 Twice A Day [facility] Gabapentin Gabapentin Yes 300 Daily [facility] Lisinopril Lisinopril Yes 30 Daily [facility] Pravastatin Sodium Pravastatin Sodium Yes 40 Be dtime [facility] Carboxymethylcellulose Sodium (Refresh Tears) [address] OPS Carboxymethylcellulose Sodium (Refresh Tears) 15 Ml DROPS 2017-08-28 00:00:00 No 1 As Needed for Dry Eyes [facility] Lisinopril Lisinopril 2017-08-28 00:00:00 No 20 Lisa ly [facility] Phenazopyridine Hcl (Pyridium) 100 Mg TABLET Phenazopy ridine Hcl (Pyridium) 100 Mg TABLET 2017-08-28 00:00:00 No Every 8 Hours [facility] Furosemide Furosemide 2017-07-28 00:00:00 No 20 Twi ce A Day [facility] Furosemide (Lasix) 40 Mg TABLET Furosemide (Lasix) 40 Mg TABLET 2017-07-28 00:00:00 No 40 Daily [facility] Lisinopril Lisinopril 2017-07-28 00:00:00 No 20 Twi ce A Day [facility] Atorvastatin Calcium (Lipitor) 40 Mg TABLET Atorvastat in Calcium (Lipitor) 40 Mg TABLET 2015-08-14 00:00:00 No 40 Daily [facility] Vital Signs Vital Name Observation Time Observation Value Comments Source Body Temperature 2020-01-04 22:36:00 99.1 [degF] [facility] Weight 2020-01-04 18:57:00 200 [lb_av] [facility] BMI (Body Mass Index) 2020-01-04 18:57:00 28.7 kg/m2 [facility] Height 2018-02-28 12:10:00 68.5 [in_us] [facility] Weight 2018-02-28 12:10:00 173 [lb_av] [facility] Body Mass Index Calculated 2018-02-28 12:10:00 25.92 kg/m2 [facility] BMI Calculated 2018-01-30 14:57:00 [facility] Weight 2018-01-30 14:57:00 [facility] Height 2018-01-30 14:57:00 179.07 cm [facility] Temperature Oral (F) 2018-01-30 14:57:00 98.4 F [facility] Heart Rate 2018-01-30 14:57:00 [facility] [place] Systolic (mm Hg) 2018-01-30 14:57:00 Yfn rial [place] Diastolic (mm Hg) 2018-01-30 14:57:00 Mem o[facility] [place] BMI Calculated 2017-08-10 15:05:00 [facility] [place] Weight 2017-08-10 15:05:00 [facility] Height 2017-08-10 15:05:00 175.26 cm [facility] Systolic (mm Hg) 2017-08-10 15:05:00 Yfn rial [place] Diastolic (mm Hg) 2017-08-10 15:05:00 Mem orial [place] Temperature Oral (F) 2017-08-10 15:05:00 98.1 F [facility] Heart Rate 2017-08-10 15:05:00 [facility] Procedures Procedure Date / Time Performed Performing Clinician [facility] e Appendectomy [facility] Cataract surgery [facility] Laser eye surgery [facility] TURP - Transurethral resection of prostate [facility] Plan of Care Planned Activity Planned Date Details Comments Source Instructions Urinary Tract Infection - Men [facility] Encounters Start Date/Time End Date/Time Encounter Type Admission Type [facility] Facility Care Department Encounter ID Source 2020-01-04 19:08:00 2020-01-04 22:34:00 Departed Emergency Room [address] [facility] [id number] [facility] 2018-06-28 13:20:00 2018-06-29 23:59:59 Outpatient [facility] [id number] 2018-06-28 13:20:00 2018-06-29 23:59:59 Outpatient [facility] [id number] 2018-06-25 08:54:00 2018-06-26 23:59:59 Outpatient [facility] [id number] 2018-06-25 08:54:00 2018-06-26 23:59:59 Outpatient [facility] [id number] 2018-02-28 11:00:00 2018-02-28 11:00:00 Appointment; MIMA BROWER M.D. HUANG, EDDIE, M.D. [facility] [id number] [facility] 2018-02-14 07:20:00 2018-02-15 23:59:59 Outpatient [facility] [id number] 2018-01-30 09:30:00 2018-01-30 23:59:59 Outpatient Gustabo Garcia [facility] [id number] 2017-12-15 16:45:00 2017-12-15 23:59:00 Outpatient Yomaira Fermin [facility] [id number] 2017-09-01 09:42:00 2017-09-02 23:59:59 Outpatient [facility] [id number] 2017-08-30 12:00:00 2017-08-31 23:59:59 Outpatient [facility] [id number] 2017-08-17 16:22:00 2017-08-18 23:59:59 Outpatient [facility] [id number] 2017-08-10 09:00:00 2017-08-10 23:59:59 Outpatient James Dutta [facility] [id number] 2017-07-28 02:05:00 2017-07-31 14:15:00 Discharged Inpatient ER JOVAN NG [facility] [id number] [facility] 2017-06-22 07:42:00 2017-06-23 23:59:59 Outpatient [facility] [id number] 2017-05-04 10:13:00 2017-05-05 23:59:59 Outpatient [facility] [id number] 2017-01-11 09:33:00 2017-01-11 23:59:00 Outpatient Sadia Allison [facility] [id number] Results Test Description Test Time Test Comments Results Result Comments Source CXR 1 W - HOPD 2020-01-04 21:27:00 [place] [address] Patient Name: RED NORTH MR #: [id number] : 1935 Age/Sex: 84/M Req #: [id number] Adm Physician: Ordered by: SHORTY WHITING MD Report #: [id number] [facility] Room/Bed: Procedure: [id number] HOPD/CXR 1 [facility] Exam Date: 01/04/20 Exam Time: 2043 REPORT STATUS: Signed EXAMINATION: CXR 1 [facility] INDICATION: Fever COMPARISON: Chest x-ray 04/17/2018 FINDINGS: TUBES and LINES: None. LUNGS: Normal lung volumes. Lungs are clear. No consolidations. PLEURA: No pleural effusion or pneu mothorax. HEART AND MEDIASTINUM: The cardiomediastinal silhouette is unremarkable. Aortic calcifications. BONES AND SOFT TISSUES: Healing left lower rib fracture. No acute osseous lesion. Soft tissues are unremarkable. Degenerative changes. UPPER ABDOMEN: No free air under the diaphragm. IMPRESSION: No acute cardiopulmonary radiographic abnormality. Signed by: Rubens Chinchilla DO on 01/04/2020 9:30 PM Dictated By: RUBENS CHINCHILLA DO 29 Transcribed By: SIMEON on 01/04/202129 COPY TO: SHORTY WHITING MD Blood leukocytes automated count (number/volume) 2020-01-04 19:25:00 Test Item White Blood Count (test code = 6690-2) 12.74 4.8-10.8 [facility] count (number/volume)2020-01-04 19:25:00* Test Item Value Reference Range Interpretation Comments Red Blood Count (test code = 789-8) 5.06 4.3-5.7 [facility] hemoglobin measurement (moles/volume)2020-01-04 19:25:00* Test Item Value Reference Range Interpretation Comments Hemoglobin (test code = 60992-0) 15.0 14.0-18.0 [facility] CenterAutomated blood hematocrit (volume fraction)2020-01-04 19:25:00* Test Item Value Reference Range Interpretation Comments Hematocrit (test code = 4544-3) 45.2 38.2-49.6 [facility] CenterAutomated erythrocyte mean corpuscular dzslfa9680-62-21 19:25:00* Test Item Value Reference Range Interpretation Comments Mean Corpuscular Volume (test code = 787-2) 89.3 81-99 [facility] CenterAutom[facility] erythrocyte mean corpuscular hemoglobin (mass per erythrocyte)2020-01-04 19:25:00* Test Item Value Reference Range Interpretation Comments Mean Corpuscular Hemoglobin (test code = 785-6) 29.6 28-32 [facility] CenterAutom[facility] erythrocyte mean corpuscular hemoglobin concentration measurement (mass/volume)2020-01-04 19:25:00* Test Item Value Reference Range Interpretation Comments Mean Corpuscular Hemoglobin Concent (test code = 786-4) 33.2 31-35 [facility] CenterRDW OamHr-Nzc4576-68-01 19:25:00* Test Item Value Reference Range Interpretation Comments Red Cell Distribution Width (test code = 62688-5) 13.0 11.7 -14.4 [facility] CenterAutom[facility] blood platelet count (count/volume)2020-01-04 19:25:00* Test Item Value Reference Range Interpretation Comments Platelet Count (test code = 777-3) 165 140-360 [facility] CenterAutom[facility] blood segmented neutrophil count as percentage of total kqvxrcatbs4296-57-78 19:25:00* Test Item Value Reference Range Interpretation Comments Neutrophils (%) (Auto) (test code = 98253-7) 82.8 38.7-80.0 [facility] CenterAutom[facility] blood lymphocyte count as percentage ot total szyohztprt0759-78-77 19:25:00* Test Item Value Reference Range Interpretation Comments Lymphocytes (%) (Auto) (test code = 736-9) 9.3 18.0-39.1 [facility] CenterAutom[facility] blood monocyte count as percentage of total pqgtbpiosu7386-52-96 19:25:00* Test Item Value Reference Range Interpretation Comments Monocytes (%) (Auto) (test code = 5905-5) 6.9 4.4-11.3 [facility] CenterAutom[facility] blood eosinophil count as percentage of total ajkngnoixx7212-25-13 19:25:00* Test Item Value Reference Range Interpretation Comments Eosinophils (%) (Auto) (test code = 713-8) 0.3 0.0-6.0 [facility] CenterAutomated blood basophil count as percentage of total bdddrvtgxk3740-99-19 19:25:00* Test Item Value Reference Range Interpretation Comments Basophils (%) (Auto) (test code = 706-2) 0.2 0.0-1.0 [facility] CenterFluoroscopic procedure less than one hour xfrgxsmp3564-22-07 19:25:00* Test Item Value Reference Range Interpretation Comments IM GRANULOCYTES % (test code = IM GRANULOCYTES %) 0.5 0.0- 1.0 [facility] CenterAutom[facility] blood neutrophil count 2020-01-04 19:25:00* Test Item Value Reference Range Interpretation Comments Neutrophils # (Auto) (test code = 751-8) 10.5 2.1-6.9 [facility] CenterBlood lymphocytes count (number/volume) 2020-01-04 19:25:00* Test Item Value Reference Range Interpretation Comments Lymphocytes # (Auto) (test code = 22301-4) 1.2 1.0-3.2 [facility] CenterBlood monocytes automated count (number/volume)2020-01-04 19:25:00* Test Item Value Reference Range Interpretation Comments Monocytes # (Auto) (test code = 742-7) 0.9 0.2-0.8 [facility] CenterAutomated blood eosinophil count 2020-01-04 19:25:00* Test Item Value Reference Range Interpretation Comments Eosinophils # (Auto) (test code = 711-2) 0.0 0.0-0.4 [facility] CenterAutomated blood basophil count (count/volume)2020-01-04 19:25:00* Test Item Value Reference Range Interpretation Comments Basophils # (Auto) (test code = 704-7) 0.0 0.0-0.1 [facility] CenterFluoroscopic procedure less than one hour xabprsov4905-95-12 19:25:00* Test Item Value Reference Range Interpretation Comments Absolute Immature Granulocyte (auto (aminata t code = Absolute Immature Granulocyte (auto) 0.07 0-0.1 [facility] CenterCHEST 2 UCEJI9748-65-39 20:57:00 [place] [address] Patient Name: RED NORTH MR #: [id number] : 1935 Age/Sex: 83/M Req #: [id number] Adm Physician: Ordered by: FRANCISCO CARL MD Report #: [id number] Location: ER Room/Bed: Procedure: [id number] DX/ CHEST 2 VIEWS Exam Date: 04/17/18 Exam Time: 2040 REPORT STATUS: Signed EXAMINATI ON: PA and lateral views of the chest. COMPARISON: None CLINICAL HISTO RY: Left rib pain, denies trauma DISCUSSION: Lines/tubes: None. Lungs: The lungs are well inflated and clear. No pneumonia or pulmonary e tori. Pleura: No no pleural effusion or pneumothorax. Heart and media stinum: The cardiomediastinal silhouette is normal. Bones and soft tissues : No acute bony abnormalities. IMPRESSION: No acute cardiopulmonary a bnormalities. Signed by: Dr. Cheryl Negrete M.D. on 04/17/2018 8:59 PM Dictated By: CHERYL NEGRETE MD 58 Transcribed By: SIMEON on 04/17/182058 COPY TO: FRANCISCO CARL MD [U] XRAY KNEE 4 OR MORE VWS RIGHT [id number] 2018-02-28 11:16:00Images acquired, not reported on this accession number. [facility]iciansBlood Dwbdbrf2801-24-35 12:51:00* Test Item Value Reference Range Interpretation Comments Blood Culture (test code = 03650494) NO GROWTH AFTER 48 HOURS [facility] CenterBedside Myvxbxs7002-73-02 11:57:00* Test Item Value Reference Range Interpretation Comments Bedside Glucose (test code = 94602-7) 134 70-120 H Meter ID: [id number] Level 2017-07-31 07:26:00* Test Item Value Reference Range Interpretation Comments Sodium Level (test code = 2951-2) 136 136-145 [facility] CenterPotassium Ijshf0719-16-92 07:26:00* Test Item Value Reference Range Interpretation Comments Potassium Level (test code = 2823-3) 3.9 3.5-5.1 [facility] CenterChloride Jdnmt7926-88-20 07:26:00* Test Item Value Reference Range Interpretation Comments Chloride Level (test code = 2075-0) 106 98-107 [facility] CenterCarbon Dioxide Jifhy1558-95-35 07:26:00* Test Item Value Reference Range Interpretation Comments Carbon Dioxide Level (test code = 2028-9) 20 22-29 L [facility] CenterAnion Ddf9170-99-47 07:26:00* Test Item Value Reference Range Interpretation Comments Anion Gap (test code = 33777-5) 13.9 8-16 [facility] CenterBlood Urea Iiwhwnyn5350-50-82 07:26:00* Test Item Value Reference Range Interpretation Comments Blood Urea Nitrogen (test code = 3094-0) 9 7-26 [facility] CenterCreatinine2018-02-26 07:26:00* Test Item Value Reference Range Interpretation Comments Creatinine (test code = 2160-0) 0.72 0.72-1.25 [facility] CenterBUN/Creatinine Fqrog0811-82-08 07:26:00* Test Item Value Reference Range Interpretation Comments BUN/Creatinine Ratio (test code = 3097-3) 13 6-25 [facility] CenterEstimat Glomerular Filtration Rate 2017-07-31 07:26:00* Test Item Value Reference Range Interpretation Comments Estimat Glomerular Filtration Rate (test code = 50357-7) 60- >60 Ranges were taken from the National Kidney Disease Education Program and the [facility] Kidney Foundation literature.Reference ranges:60 or greater: Lkjtex07-40 ( for 3 consecutive months): Chronic kidney disease 15 or less: Kidney failureShannon Medical CenterGlucose Teztr8397-61-07 07:26:00* Test Item Value Reference Range Interpretation Comments Glucose Level (test code = UTL0256) 115 74-118 [facility] CenterCalcium Cpodf2017-60-01 07:26:00* Test Item Value Reference Range Interpretation Comments Calcium Level (test code = 89706-2) 8.9 8.4-10.2 [facility] CenterCreatine Rxxmgu0848-60-80 16:15:00* Test Item Value Reference Range Interpretation Comments Creatine Kinase (test code = 2157-6) 159 30-200 [facility] CenterBlood Gnjngpj7137-22-66 09:33:00* Test Item Value Reference Range Interpretation Comments Blood Culture (test code = 600-7) Organism: STREPTOCOCCUS VIRIDANS [facility] CenterHemoglobin A1c Jfqdjyk8771-95-60 14:42:00 * Test Item Value Reference Range Interpretation Comments Hemoglobin A1c Percent (test code = Hemoglobin A1c Percent) 5.2 4.0-7.0 [facility] CenterMagnesium Ergtd2824-64-13 14:35:00* Test Item Value Reference Range Interpretation Comments Magnesium Level (test code = 04400-1) 1.8 1.3-2.1 [facility] CenterTotal Okrpxlvgs8817-76-07 10:24:00* Test Item Value Reference Range Interpretation Comments Total Bilirubin (test code = 1975-2) 0.7 0.2-1.2 [facility] CenterAspartate Amino Transf (AST/SGOT) 2017-07-29 10:24:00* Test Item Value Reference Range Interpretation Comments Aspartate Amino Transf (AST/SGOT) (test code = Aspartate Amino Transf (AST/SGOT)) 36 5-34 H [facility] CenterAlanine Aminotransferase (ALT/SGPT) 2017-07-29 10:24:00* Test Item Value Reference Range Interpretation Comments Alanine Aminotransferase (ALT/SGPT) (test code = 1742-6) 24 0-55 [facility] CenterTotal Uwsgrhs9829-38-10 10:24:00* Test Item Value Reference Range Interpretation Comments Total Protein (test code = 2885-2) 6.7 6.5-8.1 [facility] CenterAlbumin2018-02-24 10:24:00* Test Item Value Reference Range Interpretation Comments Albumin (test code = 1751-7) 2.8 3.5-5.0 L [facility] CenterGlobulin2018-02-24 10:24:00* Test Item Value Reference Range Interpretation Comments Globulin (test code = 88513-5) 3.9 2.3-3.5 H [facility] CenterAlbumin/Globulin Pwjqw6261-61-35 10:24:00 * Test Item Value Reference Range Interpretation Comments Albumin/Globulin Ratio (test code = 1759-0) 0.7 0.8-2.0 L [facility] CenterAlkaline Mqirxqbisde6969-08-48 10:24:00* Test Item Value Reference Range Interpretation Comments Alkaline Phosphatase (test code = 6768-6) 56 40-150 [facility] CenterTriglycerides Tuxvf0202-53-45 10:24:00* Test Item Value Reference Range Interpretation Comments Triglycerides Level (test code = 2571-8) 118 0-149 [facility] CenterCholesterol Zpklt2635-29-98 10:24:00* Test Item Value Reference Range Interpretation Comments Cholesterol Level (test code = 2093-3) 132 0-199 Less than 200 mg/dL Low Nbjg457 - 239 mg/dL Borderline Astw406 m g/dl and greater High Risk [facility] CenterLDL Aosgbpahnpf4168-46-21 10:24:00* Test Item Value Reference Range Interpretation Comments LDL Cholesterol (test code = 2089-1) 72 60-130 [facility] CenterHDL Xdttbbugeif9782-47-74 10:24:00* Test Item Value Reference Range Interpretation Comments HDL Cholesterol (test code = 2085-9) 36 40-60 L [facility] CenterCholesterol/HDL Ukhbq9176-92-77 10:24:00 * Test Item Value Reference Range Interpretation Comments Cholesterol/HDL Ratio (test code = 9830-1) 3.7 3.9-4.7 L [facility] CenterWhite Blood Xggaj6523-90-67 09:58:00* Test Item Value Reference Range Interpretation Comments White Blood Count (test code = 6690-2) 7.80 4.8-10.8 [facility] CenterRed Blood Ljyfo2303-67-57 09:58:00* Test Item Value Reference Range Interpretation Comments Red Blood Count (test code = 789-8) 4.13 4.3-5.7 L [facility] CenterHemoglobin2018-02-24 09:58:00* Test Item Value Reference Range Interpretation Comments Hemoglobin (test code = 21376-3) 12.5 14.0-18.0 L [facility] CenterHematocrit2018-02-24 09:58:00* Test Item Value Reference Range Interpretation Comments Hematocrit (test code = 4544-3) 36.7 38.2-49.6 L [facility] CenterMean Corpuscular Ekzgem1575-14-77 09:58:00* Test Item Value Reference Range Interpretation Comments Mean Corpuscular Volume (test code = 787-2) 88.9 81-99 [facility] CenterMean Corpuscular Rgowgkjbml6520-43-23 09:58:00* Test Item Value Reference Range Interpretation Comments Mean Corpuscular Hemoglobin (test code = 785-6) 30.3 28-32 [facility] CenterMean Corpuscular Hemoglobin Concent 2017-07-29 09:58:00* Test Item Value Reference Range Interpretation Comments Mean Corpuscular Hemoglobin Concent (test code = 786-4) 34.1 31-35 [facility] CenterRed Cell Distribution Pfyhi4913-19-49 09:58:00* Test Item Value Reference Range Interpretation Comments Red Cell Distribution Width (test code = 96178-7) 12.8 11.7 -14.4 [facility] CenterPlatelet Dkoer6872-37-09 09:58:00* Test Item Value Reference Range Interpretation Comments Platelet Count (test code = 777-3) 96 140-360 L [facility] CenterNeutrophils (%) (Auto)2017-07-29 09:58:00 * Test Item Value Reference Range Interpretation Comments Neutrophils (%) (Auto) (test code = 38315-1) 81.3 38.7-80.0 H [facility] CenterLymphocytes (%) (Auto)2017-07-29 09:58:00 * Test Item Value Reference Range Interpretation Comments Lymphocytes (%) (Auto) (test code = 736-9) 9.4 18.0-39.1 L [facility] CenterMonocytes (%) (Auto)2017-07-29 09:58:00* Test Item Value Reference Range Interpretation Comments Monocytes (%) (Auto) (test code = 5905-5) 6.9 4.4-11.3 [facility] CenterEosinophils (%) (Auto)2017-07-29 09:58:00 * Test Item Value Reference Range Interpretation Comments Eosinophils (%) (Auto) (test code = 713-8) 1.3 0.0-6.0 [facility] CenterBasophils (%) (Auto)2017-07-29 09:58:00* Test Item Value Reference Range Interpretation Comments Basophils (%) (Auto) (test code = 706-2) 0.3 0.0-1.0 [facility] CenterIM GRANULOCYTES %2017-07-29 09:58:00* Test Item Value Reference Range Interpretation Comments IM GRANULOCYTES % (test code = IM GRANULOCYTES %) 0.8 0.0- 1.0 [facility] CenterNeutrophils # (Auto)2017-07-29 09:58:00* Test Item Value Reference Range Interpretation Comments Neutrophils # (Auto) (test code = 751-8) 6.4 2.1-6.9 [facility] CenterLymphocytes # (Auto)2017-07-29 09:58:00* Test Item Value Reference Range Interpretation Comments Lymphocytes # (Auto) (test code = 72516-4) 0.7 1.0-3.2 L [facility] CenterMonocytes # (Auto)2017-07-29 09:58:00* Test Item Value Reference Range Interpretation Comments Monocytes # (Auto) (test code = 742-7) 0.5 0.2-0.8 [facility] CenterEosinophils # (Auto)2017-07-29 09:58:00* Test Item Value Reference Range Interpretation Comments Eosinophils # (Auto) (test code = 711-2) 0.1 0.0-0.4 [facility] CenterBasophils # (Auto)2017-07-29 09:58:00* Test Item Value Reference Range Interpretation Comments Basophils # (Auto) (test code = 704-7) 0.0 0.0-0.1 [facility] CenterAbsolute Immature Granulocyte (auto 2017-07-29 09:58:00* Test Item Value Reference Range Interpretation Comments Absolute Immature Granulocyte (auto (aminata t code = Absolute Immature Granulocyte (auto) 0.06 0-0.1 [facility] CenterUrine Fyhrivj8737-20-53 08:10:00* Test Item Value Reference Range Interpretation Comments Urine Culture (test code = 630-4) Organism: KLEBSIELLA PNEUMONIAE [facility] CenterCreatine Kinase [id number] 16:50:00* Test Item Value Reference Range Interpretation Comments Creatine Kinase MB (test code = 54739-0) 5.00 0-5.0 [facility] CenterTroponin [id number] 16:50:00* Test Item Value Reference Range Interpretation Comments Troponin I (test code = LDT0702) 0.025 0-0.300 [facility] CenterLactic Acid Fcjdl9575-68-80 04:11:00* Test Item Value Reference Range Interpretation Comments Lactic Acid Level (test code = Lactic Acid Level) 10.6 4.5- 19.8 [facility] CenterInfluenza Virus Types A,B Antigen 2017-07-27 23:59:00* Test Item Value Reference Range Interpretation Comments Influenza Virus Types A,B Antigen (test code = 67541-2) NEGATIVE NEGATIVE [facility] CenterUrine [id number] 23:55:00* Test Item Value Reference Range Interpretation Comments Urine WBC (test code = 5821-4) 50- 0-5 H [facility] CenterUrine [id number] 23:55:00* Test Item Value Reference Range Interpretation Comments Urine RBC (test code = 80694-5) 21-50 0-5 H [facility] CenterUrine Pzembugm4140-83-82 23:55:00* Test Item Value Reference Range Interpretation Comments Urine Bacteria (test code = 27213-4) MANY NONE H [facility] CenterUrine Epithelial Vldxx5455-45-16 23:55:00 * Test Item Value Reference Range Interpretation Comments Urine Epithelial Cells (test code = 19560-3) RARE NONE [facility] CenterUrine Japvh9054-40-99 23:46:00* Test Item Value Reference Range Interpretation Comments Urine Color (test code = 5778-6) YELLOW YELLOW [facility] CenterUrine Imdvjlp9864-24-17 23:46:00* Test Item Value Reference Range Interpretation Comments Urine Clarity (test code = 62687-4) CLOUDY CLEAR H [facility] CenterUrine Specific Usqjjri5107-79-67 23:46:00 * Test Item Value Reference Range Interpretation Comments Urine Specific Lorraine (test code = 5811-5) 1.015 1.010-1.02 5 [facility] CenterUrine kF6530-23-27 23:46:00* Test Item Value Reference Range Interpretation Comments Urine pH (test code = 86655-9) 5 5-7 [facility] CenterUrine Leukocyte Mgtbesff8619-12-47 23:46:00* Test Item Value Reference Range Interpretation Comments Urine Leukocyte Esterase (test code = 5799-2) 2+ NEGATIVE H [facility] CenterUrine Kauhomj3703-62-42 23:46:00* Test Item Value Reference Range Interpretation Comments Urine Nitrite (test code = 35898-8) POSITIVE NEGATIVE H [facility] CenterUrine Yrwdrdz2078-28-35 23:46:00* Test Item Value Reference Range Interpretation Comments Urine Protein (test code = 5804-0) 2+ NEGATIVE H [facility] CenterUrine Glucose (UA)2017-07-27 23:46:00* Test Item Value Reference Range Interpretation Comments Urine Glucose (UA) (test code = 2349-9) NEGATIVE NEGATIVE [facility] CenterUrine Btiptyu8574-91-98 23:46:00* Test Item Value Reference Range Interpretation Comments Urine Ketones (test code = 74416-2) 2+ NEGATIVE H [facility] CenterUrine Pfxfdekgldjz8472-53-75 23:46:00* Test Item Value Reference Range Interpretation Comments Urine Urobilinogen (test code = 27428-4) 0.2 0.2-1 [facility] CenterUrine Kkbaergkh1338-96-33 23:46:00* Test Item Value Reference Range Interpretation Comments Urine Bilirubin (test code = 1978-6) NEGATIVE NEGATIVE [facility] CenterUrine Cfsze2378-09-16 23:46:00* Test Item Value Reference Range Interpretation Comments Urine Blood (test code = 44286-5) 4+ NEGATIVE H [facility] CenterThyroid Stimulating Hormone (TSH) 2017-07-27 23:08:00* Test Item Value Reference Range Interpretation Comments Thyroid Stimulating Hormone (TSH) (test code = 30943-3) 1.221 0.350-4.940 [facility] CenterB-Type Natriuretic Tikkblu0168-93-84 22:53:00* Test Item Value Reference Range Interpretation Comments B-Type Natriuretic Peptide (test code = 43297-0) 81.7 0-100 [facility] CenterProthrombin Beld3217-89-62 22:39:00* Test Item Value Reference Range Interpretation Comments Prothrombin Time (test code = 5902-2) 16.5 11.9-14.5 H [facility] CenterProthromb Time International Ratio 2017-07-27 22:39:00* Test Item Value Reference Range Interpretation Comments Prothromb Time International Ratio (test code = 6301-6) 1.44 Oral Anticoagulant Therapy INR Values:1. Low Intensity Therapy 1.5 - 2.02 . Moderate Intensity Therapy 2.0 - 3.03. High Intensity Therapy(1) 2.5 - 3. 54. High Intensity Therapy(2) 3.0 - 4.05. Panic Value INR > 5.0 [facility] CenterActivated Partial Thromboplast Time 2017-07-27 22:39:00* Test Item Value Reference Range Interpretation Comments Activated Partial Thromboplast Time (test code = 61512-3) 37.7 23.8-35.5 H [facility] CenterCHEST 2 VIEWS [facility] [address] [address] Patient Name: RED NORTH MR #: [id number] : 1935 Age/Sex: 82/M Req #: [id number] Adm Physician: Ordered by: JAKUB PRO MD Report #: [id number] Location: OR Room/Bed: Procedure: [id number] DX/CHEST 2 VIEWS Exam Date: Exam Time: [...] at 11:09 Dictated By: TORY WASHBURN MD 08 COPY TO: JAKUB PRO RENAL RETROPERITONEAL COMP [place] [address] Patient Name: RED NORTH MR #: [id number] : 1935 Age/Sex: 82/M Req #: [id number] Adm Physician: Ordered by: JAKUB PRO MD Report #: [id number] Location: Room/Bed: Procedure: [id number] US/US RENAL RETROPERITONEAL COMP E xam Date: 08/10/17 Exam Time: 1554 REPORT STATU S: Signed PROCEDURE: US RETROPERITONEAL ( KIDNEY ). COMPARISON: US, US GALLBLADDER, 06/23/2014, 9:25. Patients [facility], CT, CT ABDOMEN/PELVIS WO, 07/27/2017, 22:21. INDICATIONS: [...] TO: JAKUB PRO MD CT ABDOMEN/PELVIS WO [place] [address] Patient Name: RED NORTH MR #: [id number] : 1935 Age/Sex: 82/M Req #: [id number] Adm Physician: JOVAN CASTREJON MD Ordered by: MICHELLE BULL MD Report #: [id number] Location : [facility] Room/Bed: [facility] [place] [facility] [place] Procedure: [id number] CT/C T ABDOMEN/PELVIS WO Exam Date: 07/27/17 [...] on 07/29/171932 Transcribed By: SIMEON on 07/27 2307 COPY TO: MICHELLE BULL MD CT CERVICAL SPINE [place] [address] Patient Name: RED NORTH MR #: [id number] : Age/Sex: 82/M Req #: [id number] Adm Physician: Ordered by: MICHELLE BULL MD Report #: [id number] Location: ER Room/Bed: Procedure: [id number] CT/CT CERVICAL SPINE WO Exam Da te: [...] MD 44 Transcribed By: SIMEON on 07/27/172244 [employer] Y TO: MICHELLE BULL MD CT BRAIN WO [place] [address] Patient Name: RED NORTH MR #: [id number] : 1935 Age/Sex: 82/M Req #: [id number] Adm Physician: Ordered by: MICHELLE BULL MD Report #: [id number] Location: ER Room/Bed: Procedure: [id number] CT/CT BRAIN WO Exam Date: 07/27 Exam [...] TO: MICHELLE BULL MD CHEST SINGLE (PORTABLE) [place] [address] Patient Name: RED NORTH MR #: [id number] : 1935 Age/Sex: 82/M Req #: [id number] Adm Physician: Ordered by: MICHELLE BULL MD Report #: [id number] Location: ER Room/Bed: Procedure: [id number] DX/CHEST SINGLE (PORTABLE) Exam Date: 07/27/17 Exam [...] COPY TO: MICHELLE BULL MD SHOULDER LEFT [address] [address] Patient Name: RED NORTH MR #: [id number] : Age/Sex: 82/M Req #: [id number] Adm Physician: Ordered by: MICHELLE BULL MD Report #: [id number] Location: ER Room/Bed: Procedure: [id number] DX/SHOULDER LEFT COMPLETE Exam Date: 07/27/17 Exam Time: 2215 REPORT STATUS: S igned SHOULDER LEFT COMPLETE [...]
[2020-01-09] MEDS ORDERED: CEFTRIAXONE SOD 1 GM VIAL IV ONE (21:00)
[2020-01-09] MEDS ORDERED: SODIUM CHLORIDE 0.9% 1000ML 1,000 ML ONE (21:00)
[2020-01-09] MEDS ORDERED: CEFTRIAXONE SOD 1 GM VIAL ONE (21:01)
[2020-01-09] MEDS ORDERED: CEFTRIAXONE SOD 1 GM/NS 50 ML 50 ML IV ONE (21:15)
[2020-01-09] MEDS ORDERED: SODIUM CHLORIDE 0.9% 1000ML 2,000 ML ONE (22:03)
--- NOTE | 2020-01-09 22:19 | Diagnostic Imaging Report ---
EXAM: CT Abdomen and Pelvis without contrast INDICATION: ^pain and fever COMPARISON: CT dated 07/27/2017 TECHNIQUE: Abdomen and pelvis were scanned utilizing a multidetector helical scanner from the lung base to the pubic symphysis without IV contrast. Coronal and sagittal reformations were obtained. Routine protocol was performed. IV CONTRAST: None ORAL CONTRAST: None COMPLICATIONS: None RADIATION DOSE: Total DLP: 779.25 mGy*cm Estimated effective dose: (DLP x 0.015 x size factor) mSv CTDIvol has been reviewed. It is below the limits set by the Radiation Protocol Committee (RPC). Dose modulation, iterative reconstruction, and/or weight based adjustment of the mA/kV was utilized to reduce the radiation dose to as low as reasonably achievable. FINDINGS: LINES and TUBES: None. LOWER THORAX: Mild dependent atelectasis. Severe coronary artery calcifications. HEPATOBILIARY: Simple appearing 1 cm cyst at the hepatic dome. GALLBLADDER: Contracted gallbladder with cholelithiasis. No evidence of acute cholecystitis. SPLEEN: No splenomegaly. PANCREAS: No focal masses or ductal dilatation. ADRENALS: No adrenal nodules KIDNEYS/URETERS: No hydronephrosis. No urinary tract calculi. Simple fluid attenuating cystic lesions in the superior pole the right kidney measuring up to 3.0 cm, likely simple cysts, but incompletely characterized on noncontrast exam. No stones. Bilateral minimal perinephric stranding is similar to 2018, and likely represents senescent change. GI TRACT: No abnormal distention, wall thickening, or evidence of bowel obstruction. Appendix is not identified, but no inflammatory changes in the right lower quadrant.. Colonic diverticulosis without evidence of acute diverticulitis. PELVIC ORGANS/BLADDER: Prostate is enlarged. The bladder is nondistended.. LYMPH NODES: No lymphadenopathy. VESSELS: Unremarkable. PERITONEUM / RETROPERITONEUM: No free air or fluid. BONES: Unchanged compression fracture deformity of the L2 vertebral body. Bones are demineralized. Retrolisthesis of L2 on L3, unchanged. SOFT TISSUES: Unremarkable. IMPRESSION: 1. No acute abdominopelvic process. 2. Colonic diverticulosis without evidence of acute diverticulitis. Signed by: Augusto Lawton MD on 01/09/2020 10:15 PM
--- NOTE | 2020-01-09 22:25 | Diagnostic Imaging Report ---
EXAMINATION: CXR 1 [facility] one view INDICATION: ^fever COMPARISON: Radiograph dated 01/04/2020 FINDINGS: TUBES and LINES: None. LUNGS: Normal lung volumes. No consolidations., Subtle peripheral reticulation is not significantly change from prior studies. 6 mm nodular opacity projecting over the posterior fifth rib is unchanged from 2018, likely benign. PLEURA: No pleural effusion or pneumothorax. HEART AND MEDIASTINUM: The cardiomediastinal silhouette is unremarkable. BONES AND SOFT TISSUES: No acute osseous lesion. Soft tissues are unremarkable. UPPER ABDOMEN: No free air under the diaphragm. IMPRESSION: No acute thoracic radiographic abnormality. Signed by: Augusto Lawton MD on 01/09/2020 10:21 PM
--- NOTE | 2020-01-09 22:27 | Emergency Department Note ---
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 Historian: Patient Arrival Mode: Car Onset (how long ago): day(s) (3) Location: suprapubic Quality: dull Radiation: Denies non-radiation, Denies back, Denies neck, Denies extremity, Denies abdomen, Denies periumbilical, Denies flank, Denies proximal, Denies distal, Denies other Severity: moderate Onset quality: gradual Duration (how long): day(s) (3) Timing of current episode: constant Progression: worsening Chronicity: new Context: Denies recent illness, Denies recent surgery, Denies recent immobilization, Denies recent travel, Denies trauma/injury, Denies new medications, Denies hx of DVT/PE, Denies non-compliance w/ medications, Denies other Relieving factors: none Exacerbating factors: none Associated symptoms: Reports denies other symptoms, Reports fever/chills; Denies confusion, Denies chest pain, Denies cough, Denies diaphoresis, Denies headaches, Denies loss of appetite, Denies malaise, Denies nausea/vomiting, Denies rash, Denies seizure, Denies shortness of breath, Denies syncope, Denies weakness, Denies other Treatments prior to arrival: none Past Medical/Family History Physician Review I have reviewed the patient's past medical and family history. Any updates have been documented here. Past Medical History Recent Fever: Yes Clinical Suspicion of Infectio: Yes New/Unexplained Change in Ment: No Past Medical History: Hypertension Other Medical History: ENLARGED PROSTATE GLACOMA NEUROPATHY RA Past Surgical History: Knee Replacement, Back Surgery Other Surgery: KNEE FX BACK SURG. Social History Smoking Cessation: Never Smoker Counseling Performed: No Alcohol Use: None Any Illegal Drug Use: No Physically hurt or threatened: No Other Last Tetanus: Unknown Any Pre-Existing Lines (PICC,: No Review of Systems Review of Systems Constitutional: Reports as per HPI; Denies chills, Denies diaphoresis, Denies fever, Denies malaise, Denies weakness, Denies other EENTM: Reports no symptoms Cardiovascular: Reports no symptoms Respiratory: Reports no symptoms Gastrointestinal: Reports no symptoms Genitourinary: Reports as per HPI Musculoskeletal: Reports no symptoms Integumentary: Reports no symptoms Neurological: Reports no symptoms Psychological: Reports no symptoms Endocrine: Reports no symptoms Hematological/Lymphatic: Reports no symptoms Physical Exam Related Data Allergies: Coded Allergies: No Known Drug Allergies (Verified Allergy, Unknown, 02/01/10) Triage Vital Signs Vital Signs Date Time Temp Pulse Resp B/P (MAP) Pulse Ox O2 Delivery O2 Flow Rate FiO2 01/09/20 20:28 101.4 148 22 206/102 98 Room Air Vital signs reviewed: Yes Physical Exam CONSTITUTIONAL Constitutional: Present well-developed, Present well-nourished HENT HENT: Present normocephalic, Present atraumatic, Present oropharynx cl ear/moist, Present nose normal HENT L/R: Present left ext ear normal, Present right ext ear normal EYES Eyes: Reports PERRL, Reports conjunctivae normal NECK Neck: Present ROM normal PULMONARY Pulmonary: Present effort normal, Present breath sounds normal CARDIOVASCULAR Cardiovascular: Present regular rhythm, Present heart sounds normal, Present capillary refill normal, Present normal rate GASTROINTESTINAL Abdominal: Present soft, Present bowel sounds normal, Present tender (suprapubic) GENITOURINARY Genitourinary: Present exam deferred SKIN Skin: Present warm, Present dry MUSCULOSKELETAL Musculoskeletal: Present ROM normal NEUROLOGICAL Neurological: Present alert, Present oriented x 3, Present no gross motor or sensory deficits PSYCHOLOGICAL Psychological: Present mood/affect normal, Present judgement normal Results Laboratory Lab results reviewed: Yes Imaging Imaging results reviewed: Yes Assessment & Plan Medical Decision Making MDM pyelonephritis uti Reassessment Reassessment time: 22:26 Reassessment better Assessment & Plan Final Impression: (1) Hypertensive crisis (2) UTI (urinary tract infection) Depart Disposition: ADMITTED Last Vital Signs Date Time Temp Pulse Resp B/P (MAP) Pulse Ox O2 Delivery O2 Flow Rate FiO2 01/09/20 22:07 100.2 01/09/20 22:00 116 20 97 Room Air Home Meds Active Scripts Tramadol Hcl (ULTRAM) 50 Mg Tablet, 50 MG PO Q6H PRN for PAIN, #10 TAB Prov:FRANCISCO HARDIN DO 11/13/18 Reported Medications Lisinopril (LISINOPRIL) 10 Mg Tablet, 30 MG PO DAILY, #30 TAB 07/31/17 Furosemide (LASIX) 20 Mg Tablet, 20 MG PO BID, #30 TAB 07/28/17 Gabapentin (GABAPENTIN) 300 Mg Capsule, 300 MG PO DAILY, #60 CAP 07/28/17 Bimatoprost (LUMIGAN) 2.5 Ml Drops, 1 DROP OP HS, BOTTLE 08/14/15 Pravastatin Sodium (PRAVASTATIN SODIUM) 40 Mg Tablet, 40 MG PO HS 08/14/15 Medications in the ED Ibuprofen 600 mg ONCE STAT PO Last administered on 01/09/20at 20:55; Admin Dose 600 MG; Start 01/09/20 at 20:46; Stop 01/09/20 at 20:58; Status DC Ceftriaxone Sodium 1 gm ONCE ONCE IV ; Start 01/09/20 at 21:00; Stop 01/09/20 at 21:01; Status UNV Sodium Chloride 1,000 ml @ 0 mls/hr Q0M STAT IV Last administered on 01/09/20at 21:07; Admin Dose 2,055 MLS/HR; Start 01/09/20 at 20:46; Stop 01/09/20 at 20:49; Status DC Hydralazine HCl 10 mg NOW STAT IV Last administered on 01/09/20at 20:55; Admin Dose 10 MG; Start 01/09/20 at 20:51; Stop 01/09/20 at 20:58; Status DC Sodium Chloride 1,000 ml @ ud STK-MED ONCE .ROUTE ; Start 01/09/20 at 21:00; Stop 01/09/20 at 20:55; Status DC Ceftriaxone Sodium 1 gm STK-MED ONCE .ROUTE ; Start 01/09/20 at 21:01; Stop 01/09/20 at 21:00; Status DC Ceftriaxone Sodium 50 ml @ 100 mls/hr ONCE ONCE IV Last administered on 01/09/20at 20:55; Admin Dose 100 MLS/HR; Start 01/09/20 at 21:15; Stop 01/09/20 at 21:44; Status DC Sodium Chloride 1,000 ml @ 0 mls/hr Q0M STAT IV Last administered on 01/09/20at 21:59; Admin Dose 999 MLS/HR; Start 01/09/20 at 21:50; Stop 01/09/20 at 21:52; Status DC Sodium Chloride 1,000 ml @ 0 mls/hr Q0M STAT IV Last administered on 01/09/20at 21:59; Admin Dose 999 MLS/HR; Start 01/09/20 at 21:50; Stop 01/09/20 at 21:52; Status DC Sodium Chloride 2,000 ml @ ud STK-MED ONCE .ROUTE ; Start 01/09/20 at 22:03; Stop 01/09/20 at 21:58; Status DC SHORTY WHITING MD Jan 09, 2020 22:27
[2020-01-09] MEDS ORDERED: CEFTRIAXONE SOD 1 GM/NS 50 ML 50 ML IV STA (22:28)
[2020-01-09] MEDS ORDERED: HYDRALAZINE HCL 20 MG/ML VIAL IV PRN (22:30)
--- OUTSIDE RECORDS SUMMARY | 2020-01-09 22:42 | XMS REPORT | Continuity of Care Document ---
Author Author [facility] t Organization [facility] Address [address] [place] [address] Phone Unavailable Care Team Providers Care Basket Operator Name Role Phone MD Manny WOODS PCP SHORTY WHITING Attphys Unavailable Manny CARL Attphys Unavailable MIMA BROWER M.D. Attphys Unavailable Alexis Garcia Attphys JimbodaGhassan pierre Attphys JAKUB PRO Attphys Unavailable Ken Dutta Attphys HERNANDEZ, JOVAN Attphys Unavailable Sadia Calderón Attphys JimbodaGhassan pierre Admphys HERNANDEZFREDY VALENTINIS Admphys Unavailable Payers Payer Name Policy Type Policy Number Effective Date Expiration Date Manny kennedy [employer] Medicare Replacement [id number] 2019 00:00:0 0 [facility] Problems Condition Name Condition Details Condition Category Status Onset Date Resolution Date Last Treatment Date Treating Clinician Comments Source DX: S32.020A=WEDGE COMPRESSION FRACTURE DX: S32.020A=WEDGE COMPRESSION FRACTURE Active 12/08/2017 [facility] Diagnosis Active 2017-12-08 00:00:00 2017-12-15 16:48:00 Ofe Mars DX: R93.8= ABNORMAL FINDINGS ON DIAGNOST DX: R93.8= ABNORMAL FINDINGS ON DIAGNOST Active 01/04/2017 [facility] Diagnosis Active 2017-01-04 00:00:00 2017-01-11 09:43:00 Zen Mars DX: R22.2= DX: R22.2= Active 12/05/2016 [facility] Active 2016-12-05 00:00:00 2017-01-09 15:25:00 Ofe Mars COMPRESSION FRACTURE COMP RESSION FRACTURE Active 10/17/2016 [facility] Active 2016-10-17 00:00:00 2016-10-26 10:38:00 Ofe Mars Limb pain Limb pain Problem HL7.CCDAR2 Active [facility] Localized primary osteoarthritis of lower leg, right L ocalized primary osteoarthritis of lower leg, right Problem HL7.CCDAR2 Active [facility] Bronchitis Bronchitis Problem Active [facility] Contusion of left shoulder Contusion of shoulder, left Problem Active [facility] Fall Fall Problem Active [facility] Urinary tract infection UTI (urinary tract infection) Problem Active [facility] Weakness Weakness Problem Active [facility] Tachycardia Problem Active [facility] Acute cystitis Problem Active [facility] Fever Problem Active [facility] Benign prostatic hyperplasia (disorder) Benign prostatic hyperplasia (disorder) Resolved Problem 01/17/2019 [facility] Problem Resolved 2019-01-17 12:38:09 Ofe Mars Glaucoma (disorder) Glau coma (disorder) Active Problem 01/17/2019 [facility] Problem Active 2019-01-17 12:38:09 Ofe Mars Hyperlipidemia (disorder) Hype rlipidemia (disorder) Active Problem 01/17/2019 [facility] Problem Active 2019-01-17 12:38:09 Ofe Mars Hypertensive disorder, systemic arterial (disorder) Hypertensive disorder, systemic arterial (disorder) Active Problem 01/17/2019 [facility] Problem Active 2019-01-17 12:38:09 Ofe Mars 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) Active Problem 01/17/2019 [facility] Problem Active 2019-01-17 12:38:09 Yfn Mars WEDGE COMPRESSION FRACTURE OF UNSP LUMBA WEDGE COMPRESSION FRACTURE OF UNSP LUMBA Active [facility] Active 2016-10-26 10:38:00 [facility] Allergies, Adverse Reactions, Alerts Allergy Name Allergy Type Status Severity Reaction(s) Onset Date Inacti ve Date Treating Clinician Comments Source No Known Medication Allergies No Known Medication Allergies Active [facility] Social History Social Habit Start Date Stop Date Quantity Comments Source Sex Ass[birth year] At 1935 00:00:00 1935 00:00:00 Male [facility] Smoking Status Start Date Stop Date Source Social History [facility] Medications Ordered Medication Name Filled Medication Name Start Date Stop Da te Current Medication? Ordering Clinician Indication Dosage Frequency Signature (SIG) Comments Components Source pravastatin 40 mg oral tablet 2018-08-13 20:32:06 Yes See Instructions, # 90 tab, TAKE 1 TABLET BY MOUTH EVERYDAY AT BEDTIME, Pharmacy: [facility]/pharmacy #[id number] [facility] Blood Glucose Testing Strips [facility]/Other 2018-06-28 20:37:00 Yes See Instructions, MISC Daily, # 10 vial, Not insulin dependent, Does not use insulin pump, Last DM eval date 11/27/17, 3 Refill(s) [facility] Blood Glucose Testing Strips [facility]Other 2018-06-28 20:34:00 No , # 100 ea, Not insulin dependent, Does not use insulin pump, 3 Refill(s) [facility] pravastatin 40 mg oral tablet 2018-05-14 20:54:00 No 40 mg = 1 tab, PO, Bedtime, # 90 tab, 0 Refill(s), Pharmacy: [facility]/pharmacy #[id number] [facility] Tramadol Hcl (Ultram) 50 Mg TABLET Tramadol Hcl (Ultram) 50 Mg TABLET 2018-04-17 21:17:00 Yes 50 Every 6 Hours as needed for P ain [facility] Diclofenac Sodium 1 % Transdermal Gel Diclofenac Sodium 1 % Transdermal Gel 2018-02-28 00:00:00 Yes MIMA BROWER M.D. APPLY 4 GRAMS TOPICALLY TO AFFECTED AREA (LOWER EXTREMITIES) 4 TIMES DAILY. DO NOT APPLY MORE THAN 16 GRAMS DAILY TO ANY ONE AFFECTED JOINT [facility] Meloxicam 7.5 MG Oral Tablet Meloxicam 7.5 MG Oral Tablet 2018-02-04 6 00:00:00 Yes MIMA BROWER M.D. TAKE ONE TABLET ONCE A DAY N EEDED FOR PAIN [facility] MethylPREDNISolone 4 MG Oral Tablet Therapy Pack Isha lPREDNISolone 4 MG Oral Tablet Therapy Pack 2018-02-28 00:00:00 Yes MIMA BROWER M.D. 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, Pharmacy: [facility]/pharmacy #[id number] [facility] [place] Furosemide 20 MG Oral Tablet 2017-11-28 03:17:56 Yes See Instructions, # 90 tab, TAKE 1 TABLET BY MOUTH EVERY DAY, [id number] [place] lisinopril 30 mg oral tablet 2017-11-28 03:17:56 Yes See Instructions, # 90 tab, TAKE 1 TABLET BY MOUTH EVERY DAY, [id number] [place] Furosemide 20 MG Oral Tablet 2017-09-01 15:23:00 No 20 mg = 1 tab, PO, Daily, # 90 tab, 0 Refill(s), Pharmacy: [facility]acy [id number] 30 mg oral tablet 2017-09-01 15:23:00 No 30 mg = 1 tab, PO, Daily, # 90 tab, 0 Refill(s), [id number] pravastatin 40 mg oral tablet 2017-08-17 22:35:00 Yes 40 mg = 1 tab, PO, Daily, # 90 tab, 1 Refill(s), [facility] [id number] Ofe [place] lisinopril 30 mg oral tablet [...] Last DM eval date 02/14/17, 3 Refill(s) [facility] Bimatoprost (Lumigan) 2.5 Ml DROPS Bimatoprost (Lumigan) 2.5 Ml DROPS Yes 1 Bedtime [facility] Furosemide (Lasix) 20 Mg TABLET Furosemide (Lasix) 20 Mg TABLET Yes 20 Twice A Day [facility] Gabapentin Gabapentin Yes 300 Daily [facility] Lisinopril Lisinopril Yes 30 Daily [facility] Pravastatin Sodium Pravastatin Sodium Yes 40 Be dtime [facility] Carboxymethylcellulose Sodium (Refresh Tears) [address] OPS Carboxymethylcellulose Sodium (Refresh Tears) 15 Ml DROPS 2017-08-28 00:00:00 No 1 As Needed for Dry Eyes [facility] Lisinopril Lisinopril 2017-08-28 00:00:00 No 20 Lisa ly [facility] Phenazopyridine Hcl (Pyridium) 100 Mg TABLET Phenazopy ridine Hcl (Pyridium) 100 Mg TABLET 2017-08-28 00:00:00 No Every 8 Hours [facility] Furosemide Furosemide 2017-07-28 00:00:00 No 20 Twi ce A Day [facility] Furosemide (Lasix) 40 Mg TABLET Furosemide (Lasix) 40 Mg TABLET 2017-07-28 00:00:00 No 40 Daily [facility] Lisinopril Lisinopril 2017-07-28 00:00:00 No 20 Twi ce A Day [facility] Atorvastatin Calcium (Lipitor) 40 Mg TABLET Atorvastat in Calcium (Lipitor) 40 Mg TABLET 2015-08-14 00:00:00 No 40 Daily [facility] Vital Signs Vital Name Observation Time Observation Value Comments Source Body Temperature 2020-01-04 22:36:00 99.1 [degF] [facility] Weight 2020-01-04 18:57:00 200 [lb_av] [facility] BMI (Body Mass Index) 2020-01-04 18:57:00 28.7 kg/m2 [facility] Height 2018-02-28 12:10:00 68.5 [in_us] [facility] Weight 2018-02-28 12:10:00 173 [lb_av] [facility] Body Mass Index Calculated 2018-02-28 12:10:00 25.92 kg/m2 [facility] BMI Calculated 2018-01-30 14:57:00 [facility] [place] Weight 2018-01-30 14:57:00 [facility] [place] Height 2018-01-30 14:57:00 179.07 cm [facility] [place] Temperature Oral (F) 2018-01-30 14:57:00 98.4 F [facility] [place] Heart Rate 2018-01-30 14:57:00 [facility] [place] Systolic (mm Hg) 2018-01-30 14:57:00 Yfn rial [place] Diastolic (mm Hg) 2018-01-30 14:57:00 Mem orial [place] BMI Calculated 2017-08-10 15:05:00 [facility] [place] Weight 2017-08-10 15:05:00 [facility] [place] Height 2017-08-10 15:05:00 175.26 cm [facility] [place] Systolic (mm Hg) 2017-08-10 15:05:00 Yfn rial [place] Diastolic (mm Hg) 2017-08-10 15:05:00 Mem orial [place] Temperature Oral (F) 2017-08-10 15:05:00 98.1 F [facility] [place] Heart Rate 2017-08-10 15:05:00 [facility] Procedures Procedure Date / Time Performed Performing Clinician [facility] e Appendectomy [facility] Cataract surgery [facility] n Laser eye surgery [facility] TURP - Transurethral resection of prostate [facility] Plan of Care Planned Activity Planned Date Details Comments Source Instructions Urinary Tract Infection - Men [facility] Encounters Start Date/Time End Date/Time Encounter Type Admission Type Attendi [facility] Care Department Encounter ID Source 2020-01-04 19:08:00 2020-01-04 22:34:00 Departed Emergency Room 1 [place] BRIANSTEPHANIE [facility] [id number] [facility] 2018-06-28 13:20:00 2018-06-29 23:59:59 Outpatient [facility] [id number] 2018-06-28 13:20:00 2018-06-29 23:59:59 Outpatient [facility] [id number] 2018-06-25 08:54:00 2018-06-26 23:59:59 Outpatient [facility] [id number] 2018-06-25 08:54:00 2018-06-26 23:59:59 Outpatient [facility] [id number] 2018-02-28 11:00:00 2018-02-28 11:00:00 Appointment; MIMA BROWER M.D. HUANG, EDDIE, M.D. [facility] Orthopedics at [facility] [id number] [facility] 2018-02-14 07:20:00 2018-02-15 23:59:59 Outpatient [facility] [id number] 2018-01-30 09:30:00 2018-01-30 23:59:59 Outpatient Gustabo Garcia [facility] [id number] 2017-12-15 16:45:00 2017-12-15 23:59:00 Outpatient Yomaira Fermin [facility] [id number] 2017-09-01 09:42:00 2017-09-02 23:59:59 Outpatient [facility] [id number] 2017-08-30 12:00:00 2017-08-31 23:59:59 Outpatient [facility] [id number] 2017-08-17 16:22:00 2017-08-18 23:59:59 Outpatient [facility] [id number] 2017-08-10 09:00:00 2017-08-10 23:59:59 Outpatient James Dutta [facility] [id number] 2017-07-28 02:05:00 2017-07-31 14:15:00 Discharged Inpatient ER JOVAN NG [facility] [id number] [facility] 2017-06-22 07:42:00 2017-06-23 23:59:59 Outpatient [facility] [id number] 2017-05-04 10:13:00 2017-05-05 23:59:59 Outpatient [facility] [id number] 2017-01-11 09:33:00 2017-01-11 23:59:00 Outpatient Sadia Allison [facility] [id number] Results Test Description Test Time Test Comments Results Result Comments Source CXR 1 W - HOPD 2020-01-09 22:16:00 [place] [address] Patient Name: RED NORTH MR #: [id number] : 1935 Age/Sex: 84/M Req #: [id number] Adm Physician: Ordered by: SHORTY WHITING MD Report #: [id number] Location: [facility] Room/Bed: Procedure: [id number] HOPD/CXR 1 [facility] Exam Date: 01/09/20 Exam Time: 2139 REPORT STATUS: Signed EXAMINATION: CXR 1 [facility] one view INDICATION: fever COMPARISON: Radiograph dated 01/04/2020 FINDINGS: TUBES and LINES: None. LUNGS: Normal lung volumes. No consolidations., Subtle peripheral reticulation is not sig nificantly change from prior studies. 6 mm nodular opacity projecting over the posterior fifth rib is unchanged from 2018, likely benign. PLEURA: No pleural effusion or pneumothorax. HEART AND MEDIASTINUM: The cardiomediastinal silhouette is unremarkable. BONES AND SOFT TISSUES: No acute osseous lesion. Soft tissues are unremarkable. UPPER ABDOMEN: No free air under the diaphragm. IMPRESSION: No acute thoracic radiographic abnormality. Signed by: Danis Lawton MD on 01/09/2020 10:21 PM Dictated By: DANIS LAWTON MD 20 Transcribed By: SIMEON on 01/09/20 2221 COPY TO: SHORTY WHITING MD CT ABD/PEL WO CONTRAST-HOPD 2020-01-09 21:58:00 [place] [address] Patient Name: RED NORTH MR #: [id number] : 1935 Age/Sex: 84/M Req #: [id number] Adm Physician: Ordered by: SHORTY WHITING MD Report #: [id number] Location: [facility] Room/Bed: Procedure: [id number] HOPD/CT ABD/PEL WO CONTRAST-HOPD Exam Date: 01/09/20 Exam Time: 2139 REPORT STATUS: Signed EXAM: CT Abdomen and Pelvis without contrast INDICATION: pain and fever COMPARISON: CT dated 07/27/2017 TECHNIQUE: Abdomen and pelvis were scanned utilizing a multidetector helical scanner from the lung base to the pubic symphysis without IV contrast. Coronal and sagittal reformations were obtained. Routine protocol was performed. IV CONTRAST: None ORAL CONTRAST: None COMPLICATIONS: None RADIATION DOSE: Total DLP: 779.25 mGy*cm Estimated effective dose: (DLP x 0.015 x size factor) mSv CTDIvol has been reviewed. It is below the limits set by the Radiation Protocol Committee (RPC). Dose modulation, iterative reconstruction, and/or weight based adjustment of the mA/kV was utilized to reduce the radiation dose to as low as reasonably achievable. FINDINGS: LINES and TUBES: None. LOWER THORAX: Mild dependent atelectasis. Severe coronary artery calcifications. HEPATOBILIARY: Simple appearing 1 cm cyst at the hepatic dome. GALLBLADDER: Contracted gallbladder with cholelithiasis. No evidence of acute cholecystitis. SPLEEN: No splenomegaly. PANCREAS: No focal masses or ductal dilatation. ADRENALS: No adrenal nodules KIDNEYS/URETERS: No hydronephrosis. No urinary tract calculi. Simple fluid attenuating cystic lesions in the superior pole the right kidney measuring up to 3.0 cm, likely simple cysts, but incompletely characterized on noncontrast exam. No stones. Bilateral minimal perinephric stranding is similar to 2018, and likely represents senescent change. GI TRACT: No abnormal distention, wall thickening, or evidence of bowel obstruction. Appendix is not identified, but no inflammatory changes in the right lower quadrant.. Colonic diverticulosis without evidence of acute diverticulitis. PELVIC ORGANS/BLADDER: Prostate is enlarged. The bladder is nondistended.. LYMPH NODES: No lymphadenopathy. VESSELS: Unremarkable. PERITONEUM / RETROPERITONEUM: No free air or fluid. BONES: Unchanged compression fracture deformity of the L2 vertebral body. Bones are demineralized. Retrolisthesis of L2 on L3, unchanged. SOFT TISSUES: Unremarkable. IMPRESSION: 1. No acute abdominopelvic process. 2. Colonic diverticulosis without evidence of acute diverticulitis. Signed by: Danis Lawton MD on 01/09/2020 10:15 PM Dictated By: DANIS LAWTON MD 14 Transcribed By: SIMEON on 01/09/202214 COPY TO: SHORTY WHITING MD CXR 1 [facility] 2020-01-04 21:27:00 [place] [address] Patient Name: RED NORTH MR #: [id number] : 1935 Age/Sex: 84/M Req #: [id number] Adm Physician: Ordered by: SHORTY WHITING MD Report #: [id number] Location: [facility] Room/Bed: Procedure: [id number] HOPD/CXR 1 [facility] Exam Date: 01/04/20 Exam Time: 2043 REPORT STATUS: Signed EXAMINATION: CXR 1 [facility] INDICATION: Fever COMPARISON: Chest x-ray 04/17/2018 [...] Count (test code = 6690-2) 12.74 4.8-10.8 [facility] automated count (number/volume)2020-01-04 19:25:00* Test Item Value Reference Range Interpretation Comments Red Blood Count (test code = 789-8) 5.06 4.3-5.7 [facility] hemoglobin measurement (moles/volume)2020-01-04 19:25:00* Test Item Value Reference Range Interpretation Comments Hemoglobin (test code = 39678-5) 15.0 14.0-18.0 [facility] blood hematocrit (volume fraction)2020-01-04 19:25:00* Test Item Value Reference Range Interpretation Comments Hematocrit (test code = 4544-3) 45.2 38.2-49.6 [facility] erythrocyte mean corpuscular [id number] 19:25:00* Test Item Value Reference Range Interpretation Comments Mean Corpuscular Volume (test code = 787-2) 89.3 81-99 [facility] eryth[facility] mean corpuscular hemoglobin (mass per erythrocyte)2020-01-04 19:25:00* Test Item Value Reference Range Interpretation Comments Mean Corpuscular Hemoglobin (test code = 785-6) 29.6 28-32 [facility] erythrocyte mean corpuscular hemoglobin concentration measurement (mass/volume)2020-01-04 19:25:00* Test Item Value Reference Range Interpretation Comments Mean Corpuscular Hemoglobin Concent (test code = 786-4) 33.2 31-35 [facility]fieldRDW VrmZb-Gco8133-41-01 19:25:00* Test Item Value Reference Range Interpretation Comments Red Cell Distribution Width (test code = 80293-6) 13.0 11.7 -14.4 [facility] platelet count (count/volume)2020-01-04 19:25:00* Test Item Value Reference Range Interpretation Comments Platelet Count (test code = 777-3) 165 140-360 [facility] segmented neutrophil count as percentage of total hlmjrlqdop4789-28-59 19:25:00* Test Item Value Reference Range Interpretation Comments Neutrophils (%) (Auto) (test code = 84808-3) 82.8 38.7-80.0 [facility] lymphocyte count as percentage ot total [id number] 19:25:00* Test Item Value Reference Range Interpretation Comments Lymphocytes (%) (Auto) (test code = 736-9) 9.3 18.0-39.1 [facility] monocyte count as percentage of total tfmwriyijm2858-63-08 19:25:00* Test Item Value Reference Range Interpretation Comments Monocytes (%) (Auto) (test code = 5905-5) 6.9 4.4-11.3 [facility] eosinophil count as percentage of total erupcyiyvk4575-16-86 19:25:00* Test Item Value Reference Range Interpretation Comments Eosinophils (%) (Auto) (test code = 713-8) 0.3 0.0-6.0 [facility] blood basophil count as percentage of total izurwmvqwv7124-52-53 19:25:00* Test Item Value Reference Range Interpretation Comments Basophils (%) (Auto) (test code = 706-2) 0.2 0.0-1.0 [facility]fieldFluoroscopic procedure less than one hour [id number] 19:25:00* Test Item Value Reference Range Interpretation Comments IM GRANULOCYTES % (test code = IM GRANULOCYTES %) 0.5 0.0- 1.0 [facility] neutrophil count 2020-01-04 19:25:00* Test Item Value Reference Range Interpretation Comments Neutrophils # (Auto) (test code = 751-8) 10.5 2.1-6.9 [facility] lymphocytes count (number/volume) 2020-01-04 19:25:00* Test Item Value Reference Range Interpretation Comments Lymphocytes # (Auto) (test code = 46338-7) 1.2 1.0-3.2 [facility] monocytes automated count (number/volume)2020-01-04 19:25:00* Test Item Value Reference Range Interpretation Comments Monocytes # (Auto) (test code = 742-7) 0.9 0.2-0.8 [facility] eosinophil count 2020-01-04 19:25:00* Test Item Value Reference Range Interpretation Comments Eosinophils # (Auto) (test code = 711-2) 0.0 0.0-0.4 [facility] blood basophil count (count/volume)2020-01-04 19:25:00* Test Item Value Reference Range Interpretation Comments Basophils # (Auto) (test code = 704-7) 0.0 0.0-0.1 [facility]fieldFluoroscopic procedure less than one hour [id number] 19:25:00* Test Item Value Reference Range Interpretation Comments Absolute Immature Granulocyte (auto (aminata t code = Absolute Immature Granulocyte (auto) 0.07 0-0.1 [facility] 2 [id number] 20:57:00 [facility] [address] [address] Patient Name: RED NORTH MR #: [id number] : 1935 Age/Sex: 83/M Req #: [id number] Adm Physician: Ordered by: FRANCISCO CARL MD Report #: [id number] Location: ER Room/Bed: Procedure: [id number] DX/ CHEST 2 VIEWS Exam Date: 04/17/18 [...] XRAY KNEE 4 OR MORE VWS RIGHT [id number] 2018-02-28 11:16:00Images acquired, not reported on this accession number. [facility] [id number] 12:51:00* Test Item Value Reference Range Interpretation Comments Blood Culture (test code = 44503252) NO GROWTH AFTER 48 HOURS [facility]fieldBedside Xeoboes3207-00-80 11:57:00* Test Item Value Reference Range Interpretation Comments Bedside Glucose (test code = 55198-8) 134 70-120 H Meter ID: [id number] [facility] Hospitalodium Level 2017-07-31 07:26:00* Test Item Value Reference Range Interpretation Comments Sodium Level (test code = 2951-2) 136 136-145 [facility]fieldPotassium Ivuoc1899-26-73 07:26:00* Test Item Value Reference Range Interpretation Comments Potassium Level (test code = 2823-3) 3.9 3.5-5.1 [facility]fieldChloride Mhskg7163-09-27 07:26:00* Test Item Value Reference Range Interpretation Comments Chloride Level (test code = 2075-0) 106 98-107 [facility]fieldCarbon Dioxide Qyyvq2233-18-82 07:26:00* Test Item Value Reference Range Interpretation Comments Carbon Dioxide Level (test code = 2028-9) 20 22-29 L [facility]fieldAnion [id number] 07:26:00* Test Item Value Reference Range Interpretation Comments Anion Gap (test code = 12347-3) 13.9 8-16 [facility]fieldBlood Urea Cvyejbur1696-78-67 07:26:00* Test Item Value Reference Range Interpretation Comments Blood Urea Nitrogen (test code = 3094-0) 9 7-26 [facility]fieldCreatinine2018-02-26 07:26:00* Test Item Value Reference Range Interpretation Comments Creatinine (test code = 2160-0) 0.72 0.72-1.25 [facility]fieldBUN/Creatinine Cnlad9713-01-49 07:26:00* Test Item Value Reference Range Interpretation Comments BUN/Creatinine Ratio (test code = 3097-3) 13 6-25 [facility]fieldEstimat Glomerular Filtration Rate 2017-07-31 07:26:00* Test Item Value Reference Range Interpretation Comments Estimat Glomerular Filtration Rate (test code = 48210-5) 60- >60 Ranges were taken from the National Kidney Disease Education Program and the [facility] literature.Reference ranges:60 or greater: Nusogd74-87 ( for 3 consecutive months): Chronic kidney disease 15 or less: Kidney failureTexas Health Hospital MansfieldGlucose Ffada0368-61-86 07:26:00* Test Item Value Reference Range Interpretation Comments Glucose Level (test code = TKX4008) 115 74-118 [facility]Cal[facility] Ltqmz3412-63-98 07:26:00* Test Item Value Reference Range Interpretation Comments Calcium Level (test code = 52212-0) 8.9 8.4-10.2 [facility]fieldCreatine Mioayp8776-24-40 16:15:00* Test Item Value Reference Range Interpretation Comments Creatine Kinase (test code = 2157-6) 159 30-200 [facility]fieldBlood Tabcetz6436-07-16 09:33:00* Test Item Value Reference Range Interpretation Comments Blood Culture (test code = 600-7) Organism: STREPTOCOCCUS VIRIDANS [facility]fieldHemoglobin A1c Utibyvi1097-08-25 14:42:00 * Test Item Value Reference Range Interpretation Comments Hemoglobin A1c Percent (test code = Hemoglobin A1c Percent) 5.2 4.0-7.0 [facility]fieldMagnesium Llewc2650-81-35 14:35:00* Test Item Value Reference Range Interpretation Comments Magnesium Level (test code = 79674-2) 1.8 1.3-2.1 [facility]fieldTotal Ffzajeggx8339-06-59 10:24:00* Test Item Value Reference Range Interpretation Comments Total Bilirubin (test code = 1975-2) 0.7 0.2-1.2 [facility]fieldAspartate Amino Transf (AST/SGOT) 2017-07-29 10:24:00* Test Item Value Reference Range Interpretation Comments Aspartate Amino Transf (AST/SGOT) (test code = Aspartate Amino Transf (AST/SGOT)) 36 5-34 H [facility]fieldAlanine Aminotransferase (ALT/SGPT) 2017-07-29 10:24:00* Test Item Value Reference Range Interpretation Comments Alanine Aminotransferase (ALT/SGPT) (test code = 1742-6) 24 0-55 [facility]fieldTotal Uvlwyvx5779-33-60 10:24:00* Test Item Value Reference Range Interpretation Comments Total Protein (test code = 2885-2) 6.7 6.5-8.1 [facility]fieldAlbumin2018-02-24 10:24:00* Test Item Value Reference Range Interpretation Comments Albumin (test code = 1751-7) 2.8 3.5-5.0 L [facility]Globulin2018-02-24 10:24:00* Test Item Value Reference Range Interpretation Comments Globulin (test code = 63944-7) 3.9 2.3-3.5 H [facility]fieldAlbumin/Globulin Jkdpa4998-87-97 10:24:00 * Test Item Value Reference Range Interpretation Comments Albumin/Globulin Ratio (test code = 1759-0) 0.7 0.8-2.0 L [facility]fieldAlkaline Rlnydgpohri4585-37-15 10:24:00* Test Item Value Reference Range Interpretation Comments Alkaline Phosphatase (test code = 6768-6) 56 40-150 [facility]fieldTriglycerides Jdrtj2486-88-00 10:24:00* Test Item Value Reference Range Interpretation Comments Triglycerides Level (test code = 2571-8) 118 0-149 [facility]fieldCholesterol Rmnku9718-60-95 10:24:00* Test Item Value Reference Range Interpretation Comments Cholesterol Level (test code = 2093-3) 132 0-199 Less than 200 mg/dL Low Ufyj941 - 239 mg/dL Borderline Yfly478 m g/dl and greater High Risk [facility]fieldLDL Tdupksxnuma1224-12-17 10:24:00* Test Item Value Reference Range Interpretation Comments LDL Cholesterol (test code = 2089-1) 72 60-130 [facility]fieldHDL Ezexjmeoxjt8677-03-63 10:24:00* Test Item Value Reference Range Interpretation Comments HDL Cholesterol (test code = 2085-9) 36 40-60 L [facility]fieldCholesterol/HDL Qbsad8951-84-22 10:24:00 * Test Item Value Reference Range Interpretation Comments Cholesterol/HDL Ratio (test code = 9830-1) 3.7 3.9-4.7 L [facility]fieldWhite Blood Cugme6931-57-15 09:58:00* Test Item Value Reference Range Interpretation Comments White Blood Count (test code = 6690-2) 7.80 4.8-10.8 [facility]fieldRed Blood Lbbnf4600-87-40 09:58:00* Test Item Value Reference Range Interpretation Comments Red Blood Count (test code = 789-8) 4.13 4.3-5.7 L [facility]fieldHemoglobin2018-02-24 09:58:00* Test Item Value Reference Range Interpretation Comments Hemoglobin (test code = 13893-4) 12.5 14.0-18.0 L [facility]Hematocrit2018-02-24 09:58:00* Test Item Value Reference Range Interpretation Comments Hematocrit (test code = 4544-3) 36.7 38.2-49.6 L [facility]fieldMean Corpuscular Qukjyn3357-48-71 09:58:00* Test Item Value Reference Range Interpretation Comments Mean Corpuscular Volume (test code = 787-2) 88.9 81-99 [facility]fieldMean Corpuscular Unvykhflmw5155-72-33 09:58:00* Test Item Value Reference Range Interpretation Comments Mean Corpuscular Hemoglobin (test code = 785-6) 30.3 28-32 [facility]fieldMean Corpuscular Hemoglobin Concent 2017-07-29 09:58:00* Test Item Value Reference Range Interpretation Comments Mean Corpuscular Hemoglobin Concent (test code = 786-4) 34.1 31-35 [facility]fieldRed Cell Distribution Hqtdi2247-26-26 09:58:00* Test Item Value Reference Range Interpretation Comments Red Cell Distribution Width (test code = 71039-9) 12.8 11.7 -14.4 [facility]fieldPlatelet Cbrhk0463-80-16 09:58:00* Test Item Value Reference Range Interpretation Comments Platelet Count (test code = 777-3) 96 140-360 L [facility]fieldNeutrophils (%) (Auto)2017-07-29 09:58:00 * Test Item Value Reference Range Interpretation Comments Neutrophils (%) (Auto) (test code = 18507-8) 81.3 38.7-80.0 H [facility]fieldLymphocytes (%) (Auto)2017-07-29 09:58:00 * Test Item Value Reference Range Interpretation Comments Lymphocytes (%) (Auto) (test code = 736-9) 9.4 18.0-39.1 L [facility]fieldMonocytes (%) (Auto)2017-07-29 09:58:00* Test Item Value Reference Range Interpretation Comments Monocytes (%) (Auto) (test code = 5905-5) 6.9 4.4-11.3 [facility]fieldEosinophils (%) (Auto)2017-07-29 09:58:00 * Test Item Value Reference Range Interpretation Comments Eosinophils (%) (Auto) (test code = 713-8) 1.3 0.0-6.0 [facility]fieldBasophils (%) (Auto)2017-07-29 09:58:00* Test Item Value Reference Range Interpretation Comments Basophils (%) (Auto) (test code = 706-2) 0.3 0.0-1.0 [facility]fieldIM GRANULOCYTES %2017-07-29 09:58:00* Test Item Value Reference Range Interpretation Comments IM GRANULOCYTES % (test code = IM GRANULOCYTES %) 0.8 0.0- 1.0 [facility]fieldNeutrophils # (Auto)2017-07-29 09:58:00* Test Item Value Reference Range Interpretation Comments Neutrophils # (Auto) (test code = 751-8) 6.4 2.1-6.9 [facility]fieldLymphocytes # (Auto)2017-07-29 09:58:00* Test Item Value Reference Range Interpretation Comments Lymphocytes # (Auto) (test code = 41648-7) 0.7 1.0-3.2 L [facility]fieldMonocytes # (Auto)2017-07-29 09:58:00* Test Item Value Reference Range Interpretation Comments Monocytes # (Auto) (test code = 742-7) 0.5 0.2-0.8 [facility]fieldEosinophils # (Auto)2017-07-29 09:58:00* Test Item Value Reference Range Interpretation Comments Eosinophils # (Auto) (test code = 711-2) 0.1 0.0-0.4 [facility]fieldBasophils # (Auto)2017-07-29 09:58:00* Test Item Value Reference Range Interpretation Comments Basophils # (Auto) (test code = 704-7) 0.0 0.0-0.1 [facility]fieldAbsolute Immature Granulocyte (auto 2017-07-29 09:58:00* Test Item Value Reference Range Interpretation Comments Absolute Immature Granulocyte (auto (aminata t code = Absolute Immature Granulocyte (auto) 0.06 0-0.1 [facility]fieldUrine Piuldml7473-41-18 08:10:00* Test Item Value Reference Range Interpretation Comments Urine Culture (test code = 630-4) Organism: KLEBSIELLA PNEUMONIAE [facility]fieldCreatine Kinase ML5447-27-99 16:50:00* Test Item Value Reference Range Interpretation Comments Creatine Kinase MB (test code = 53436-3) 5.00 0-5.0 [facility]fieldTroponin C4199-64-87 16:50:00* Test Item Value Reference Range Interpretation Comments Troponin I (test code = QFW2249) 0.025 0-0.300 [facility]fieldLactic Acid Vuwmr6991-77-06 04:11:00* Test Item Value Reference Range Interpretation Comments Lactic Acid Level (test code = Lactic Acid Level) 10.6 4.5- 19.8 [facility]fieldInfluenza Virus Types A,B Antigen 2017-07-27 23:59:00* Test Item Value Reference Range Interpretation Comments Influenza Virus Types A,B Antigen (test code = 54624-6) NEGATIVE NEGATIVE [facility]fieldUrine HVW7406-49-50 23:55:00* Test Item Value Reference Range Interpretation Comments Urine WBC (test code = 5821-4) 50- 0-5 H [facility]fieldUrine AKF5108-74-94 23:55:00* Test Item Value Reference Range Interpretation Comments Urine RBC (test code = 45838-4) 21-50 0-5 H [facility]fieldUrine Shtbfrgi7072-73-71 23:55:00* Test Item Value Reference Range Interpretation Comments Urine Bacteria (test code = 30600-7) MANY NONE H [facility]fieldUrine Epithelial Kscur0623-68-11 23:55:00 * Test Item Value Reference Range Interpretation Comments Urine Epithelial Cells (test code = 34775-5) RARE NONE [facility]fieldUrine Eeuvp2931-25-10 23:46:00* Test Item Value Reference Range Interpretation Comments Urine Color (test code = 5778-6) YELLOW YELLOW [facility]fieldUrine Cgjfrkq7158-34-74 23:46:00* Test Item Value Reference Range Interpretation Comments Urine Clarity (test code = 17384-9) CLOUDY CLEAR H [facility]fieldUrine Specific Udprfrh5860-62-07 23:46:00 * Test Item Value Reference Range Interpretation Comments Urine Specific [place] (test code = 5811-5) 1.015 1.010-1.02 5 [facility]fieldUrine pU4649-96-12 23:46:00* Test Item Value Reference Range Interpretation Comments Urine pH (test code = 01602-5) 5 5-7 [facility]fieldUrine Leukocyte Nbexthbb7506-01-54 23:46:00* Test Item Value Reference Range Interpretation Comments Urine Leukocyte Esterase (test code = 5799-2) 2+ NEGATIVE H [facility]fieldUrine Hdhzrlb8401-88-79 23:46:00* Test Item Value Reference Range Interpretation Comments Urine Nitrite (test code = 13718-9) POSITIVE NEGATIVE H [facility]fieldUrine Lzcyfxf4962-43-81 23:46:00* Test Item Value Reference Range Interpretation Comments Urine Protein (test code = 5804-0) 2+ NEGATIVE H [facility]fieldUrine Glucose (UA)2017-07-27 23:46:00* Test Item Value Reference Range Interpretation Comments Urine Glucose (UA) (test code = 2349-9) NEGATIVE NEGATIVE [facility]fieldUrine Ytbbewz5013-84-67 23:46:00* Test Item Value Reference Range Interpretation Comments Urine Ketones (test code = 08475-8) 2+ NEGATIVE H [facility]fieldUrine Bgzsudfinchq1336-15-53 23:46:00* Test Item Value Reference Range Interpretation Comments Urine Urobilinogen (test code = 51234-6) 0.2 0.2-1 [facility]fieldUrine Gakjfodlj4472-02-13 23:46:00* Test Item Value Reference Range Interpretation Comments Urine Bilirubin (test code = 1978-6) NEGATIVE NEGATIVE [facility]fieldUrine Xabdz1478-82-73 23:46:00* Test Item Value Reference Range Interpretation Comments Urine Blood (test code = 47957-5) 4+ NEGATIVE H [facility]fieldThyroid Stimulating Hormone (TSH) 2017-07-27 23:08:00* Test Item Value Reference Range Interpretation Comments Thyroid Stimulating Hormone (TSH) (test code = 16289-4) 1.221 0.350-4.940 [facility]fieldB-Type Natriuretic Khywzrp8872-31-37 22:53:00* Test Item Value Reference Range Interpretation Comments B-Type Natriuretic Peptide (test code = 35992-3) 81.7 0-100 [facility]fieldProthrombin Rthe5672-70-01 22:39:00* Test Item Value Reference Range Interpretation Comments Prothrombin Time (test code = 5902-2) 16.5 11.9-14.5 H [facility]fieldProthromb Time International Ratio 2017-07-27 22:39:00* Test Item Value Reference Range Interpretation Comments Prothromb Time International Ratio (test code = 6301-6) 1.44 Oral Anticoagulant Therapy INR Values:1. Low Intensity Therapy 1.5 - 2.02 . Moderate Intensity Therapy 2.0 - 3.03. High Intensity Therapy(1) 2.5 - 3. 54. High Intensity Therapy(2) 3.0 - 4.05. Panic Value INR > 5.0 [facility]fieldActivated Partial Thromboplast Time 2017-07-27 22:39:00* Test Item Value Reference Range Interpretation Comments Activated Partial Thromboplast Time (test code = 29537-9) 37.7 23.8-35.5 H [facility]fieldCHE[facility] [address] [address] Patient Name: RED NORTH MR #: [id number] : 1935 Age/Sex: 82/M Req #: [id number] Adm Physician: Ordered by: JAKUB PRO MD Report #: [id number] Location: OR Room/Bed: Procedure: 1014-2588 DX/CHEST 2 VIEWS Exam Date: Exam Time: [...] WASHBURN MD 08 COPY TO: JAKUB PRO US RENAL RETROPERITONEAL COMP [place] [address] Patient Name: RED NORTH MR #: [id number] : 1935 Age/Sex: 82/M Req #: [id number] Adm Physician: Ordered by: JAKUB PRO MD Report #: [id number] Location: US Room/Bed: Procedure: [id number] US/US RENAL RETROPERITONEAL COMP E xam Date: 08/10/17 Exam Time: 1554 REPORT STATU S: Signed PROCEDURE: US RETROPERITONEAL ( KIDNEY ). COMPARISON: US, US GALLBLADDER, 06/23/2014, 9:25. Patients [facility], CT, CT ABDOMEN/PELVIS WO, 07/27/2017, 22:21. [...] TO: JAKUB PRO MD CT ABDOMEN/PELVIS WO [place] [address] Patient Name: RED NORTH MR #: [id number] : 1935 Age/Sex: 82/M Req #: [id number] Adm Physician: JOVAN CASTREJON MD Ordered by: MICHELLE BULL MD Report #: [id number] Location : [facility] Room/Bed: [facility] Procedure: [id number] CT/C T ABDOMEN/PELVIS WO Exam Date: 07/27/17 Exam Time: 2 215 REPORT STATUS: Signed ADDENDUM #1 Addendu m [...] by: Dr. Ilana Vega M.D. on 07/29/19 7:33 PM ORIGINAL REPORT EXAM: CT Abdomen [...] on 07/29/171932 Transcribed By: SIMEON on 07/27 COPY TO: MICHELLE BULL MD CT CERVICAL SPINE [place] [address] Patient Name: RED NORTH MR #: [id number] : Age/Sex: 82/M Req #: [id number] Adm Physician: Ordered by: MICHELLE BULL MD Report #: [id number] Location: ER Room/Bed: Procedure: [id number] CT/CT CERVICAL SPINE WO Exam Da te: 07/27/17 Exam Time: 5 REPORT STATUS: Sig alfred History: Fall, near [...] MD 46 Transcribed By: SIMEON on 07/27/172244 SHINGLER Y TO: MICHELLE BULL MD CT BRAIN WO [place] [address] Patient Name: RED NORTH MR #: [id number] : 1935 Age/Sex: 82/M Req #: [id number] Adm Physician: Ordered by: MICHELLE BULL MD Report #: [id number] Location: Room/Bed: Procedure: [id number] CT/CT BRAIN WO Exam Date: 07/27 Exam Time: 5 REPORT STATUS: Signed EX AMINATION: Head CT [...] on 07/27/172249 COPY TO: MICHELLE BULL MD [facility] [place] [address] Patient Name: RED NORTH MR #: [id number] : 1935 Age/Sex: 82/M Req #: [id number] Adm Physician: Ordered by: MICHELLE BULL MD Report #: [id number] Location: ER Room/Bed: Procedure: [id number] DX/CHEST SINGLE (PORTABLE) Exam Date: 07/27/17 Exam [...] MD on 07/27/172255 Transcribed By: SIMEON on 0 07/27/172255 COPY TO: MICHELLE BULL MD [place] [address] Patient Name: RED NORTH MR #: [id number] : Age/Sex: 82/M Req #: [id number] Adm Physician: Ordered by: MICHELLE BULL MD Report #: [id number] Location: ER Room/Bed: Procedure: [id number] DX/SHOULDER LEFT COMPLETE Exam Date: 07/27/17 Exam [...]
--- OUTSIDE RECORDS SUMMARY | 2020-01-09 22:42 | XMS REPORT | Continuity of Care Document ---
Author Author Event [employer] Address Unknown Phone Unavailable Care Team Providers Care Felt Washing Machine Tender Name Role Phone Spinal Kinetics Information Exchange Unavailable Un available Problems Problem Status Onset Date Classification Date Reported Comments Source DX: S32.020A=WEDGE COMPRESSION FRACTURE Active 12/08/2017 [facility] DX: R93.8= ABNORMAL FINDINGS ON DIAGNOST Active 01/04/2017 [facility] DX: R22.2= Active 12/05/2016 [facility] COMPRESSION FRACTURE Active 10/17/2016 [facility] Glaucoma (disorder) Active Problem 01/17/2019 [facility] Hyperlipidemia (disorder) Acti ve Problem [facility] Hypertensive disorder, systemic arterial (disorder) Active Problem 01/17/2019 [facility] Benign prostatic hyperplasia (disorder) Resolved Problem 01/17/2019 [facility] Peripheral nerve disease (disorder) Active Problem [facility] WEDGE COMPRESSION FRACTURE OF UNSP LUMBA Active [facility] Medications Medication Details Route Status Patient Instructions Ordering Provider Order Date Source pravastatin 40 mg oral tablet See Instructions, # 90 tab, TAKE 1 TABLET BY MOUTH EVERYDAY AT BEDTIME, Pharmacy: [facility]/pharmacy #[id number] Active 08/13/2018 [facility] Blood Glucose Testing Strips Misc/Other See Instructions, MISC Daily, # 10 vial, Not insulin dependent, Does not use insulin pump, Last DM eval date 11/27/17, 3 Refill(s) Active 06/28/2018 [facility] Blood Glucose Testing Strips Misc/Other , # 100 ea, Not insulin dependent, Does not use insulin pump, 3 Refill(s) Inactive 06/28/2018 [facility] pravastatin 40 mg oral tablet 40 mg = 1 tab, PO, Bedtime, # 90 tab, 0 Refill(s), Pharmacy: [facility]/pharmacy #[id number] No Longer Active 05/14/2018 [facility] pravastatin 40 mg oral tablet See Instructions, # 90 tab, TAKE 1 TABLET BY MOUTH EVERY DAY AT BEDTIME, 05/14/18 11:45:37 [employer], [id number] N o Longer Active 02/14/2018 [facility] Furosemide 20 MG Oral Tablet S ee Instructions, # 90 tab, TAKE 1 TABLET BY MOUTH EVERY DAY, [id number] Active 11/28/2017 [facility] lisinopril 30 mg oral tablet S ee Instructions, # 90 tab, TAKE 1 TABLET BY MOUTH EVERY DAY, [id number] Active 11/28/2017 [facility] Furosemide 20 MG Oral Tablet 2 0 mg = 1 tab, PO, Daily, # 90 tab, 0 Refill(s), [id number] No Longer Active 09/01/2017 [facility] lisinopril 30 mg oral tablet 3 0 mg = 1 tab, PO, Daily, # 90 tab, 0 Refill(s), [id number] No Longer Active 09/01/2017 [facility] pravastatin 40 mg oral tablet 40 mg = 1 tab, PO, Daily, # 90 tab, 1 Refill(s), Pharmacy: [facility] [id number] Active 08/17/2017 [facility] lisinopril 30 mg oral tablet 3 0 mg = 1 tab, PO, Daily, 0 Refill(s) Active 08/10/2017 [facility] gabapentin 300 MG Oral Capsule 300 mg = 1 cap, PO, TID, 0 Refill(s) Active 08/10/2017 [facility] Contour Blood Glucose Test Strips 1 ea, MISC, BID-Before Meals, Use for blood glucose monitoring., # 730 ea, Not insulin dependent, Does not use insulin pump, Last DM eval date 02/14/17, 3 Refill(s) Active 06/22/2017 [facility] Allergies, Adverse Reactions, Alerts Substance Category Reaction Severity Reaction type Status Date Reported Comments Source No Known Medication Allergies Assertion Drug aller gy [facility] Immunizations No Data Provided for This [...] 6 months is suggested. SL: [id number] 12/15/2017 [facility] Chest 2 views DX Patient Name: RED NORTH : 1935; Age: 81 years y/o Male MR: [id number] * CHEST, 2 views HISTORY: R93.8 Abnormal [...] also mild chronic nonspecific interstitial changes. SL: [id number] 01/11/2017 [facility] Abdomen/Pelvis wo IV contrast CT Abdomen/Pelvis [...] CT of the abdomen and pelvis. : [id number] 01/11/2017 [facility] Bone scan NM WHOLE BODY BONE [...] bone scan evidence of osseou s metastases. [id number] 01/11/2017 [facility] Spine lumbar wo contrast MRI S tudy: Spine lumbar wo contrast MRI 10/19/2016 2:07 PM CDT Patient Name: RED NORTH MR: [id number] : 1935; Age: 81 years y/o Male [...] narrowing. 7. Small bilateral renal cysts. SL: [id number] 10/19/2016 [facility] Consultation Notes No Data Provided for This Section Discharge Summaries No Data Provided for This Section History and Physicals No Data Provided for This Section Vital Signs Vital Sign Value Date Comments Source BMI Calculated 24.38 01/30/2018 [facility] Weight 78.182 01/30/2018 [facility] Height 179.07 cm 01/30/2018 [facility] Temperature Oral (F) 98.4 F 01/30/2018 [facility] Heart Rate 82 01/30/2018 [facility] Systolic (mm Hg) 111 01/30/2018 [facility] Diastolic (mm Hg) 66 01/30/2018 [facility] BMI Calculated 26.39 08/10/2017 [facility] [...] ADM Date DC Date Status Source Outpatient [id number] MIRZA DUTTA 08/25/2015 Active [facility] Outpatient [id number] MIRZA PRANGLE 08/31/2015 [facility] [id number] MIRZA PRANGLE 07/07/2016 Active [facility] Out[facility] [id number] MIRZA PRANGLE 07/26/2016 Active [facility] Outpatient [id number] MIRZA PRANGLE 09/27/2016 Active [facility] [id number] [facility] 11/29/2016 Active [facility] Outpatient [id number] Sadia Stephane 01/11/2017 01/12/2017 [facility] Outpatient [id number] MIRZA PRANGLE 03/29/2017 [facility] Phone Message [id number] 05/04/2017 05/06/2017 [facility] Phone Message [phone] 06/22/2017 06/24/2017 [facility] Outpatient [id number] MIRZA PRANGLE 08/10/2017 [facility] [id number] Mirza Prangle 08/10/2017 08/11/2017 [facility] Phone Message [id number] 08/17/2017 08/19/2017 [facility] Phone Message [phone] 08/30/2017 09/01/2017 [facility] Phone Message [phone] 09/01/2017 09/03/2017 [facility] Outpatient [id number] Yomaira Gar 12/15/2017 12/16/2017 [facility] Outpatient [id number] [facility] 01/30/2018 Active [id number] [facility] 01[facility]30/2018 01/31/2018 [facility] Phone Message [phone] 02/14/2018 02/16/2018 [facility] Phone Message [phone] 06/25/2018 06/27/2018 [facility] Phone Message [phone] 06/28/2018 06/30/2018 [facility] Procedures Procedure Code Date Perfomer Comments Source Appendectomy [id number] [facility] [place] Cataract surgery [id number] [facility] Laser eye surgery [id number] [facility] TURP - Transurethral resection of prostate [id number] [facility] Mahin ast Assessment and Plan No Data Provided for This Section Plan of Care No Data Provided for This Section Social History Social History Date Source Social History TypeResponse Smoking Status Never smoker; Exposure to Tobacco Smoke None; Cigarette Smoking Last 365 Days No; Reg Smoking Cessation Counseling No entered on: 01/30/18 01/30/2018 [facility] Social History TypeResponse Smoking Status Never smoker; Exposure to Tobacco Smoke None; Cigarette Smoking Last 365 Days No; Reg Smoking Cessation Counseling No entered on: 01/30/18 01/30/2018 [facility] Social History TypeResponse Smoking Status Never smoker; Exposure to Tobacco Smoke None; Cigarette Smoking Last 365 Days No; Reg Smoking Cessation Counseling No entered on: 08/10/17 08/10/2017 [facility] Family History No Data Provided for This Section Advance Directives No Data Provided for This Section Functional Status No Data Provided for This Section
[2020-01-09 23:47] VITALS: BP 131/69
[2020-01-10] VITALS (12 sets, daily range): BP systolic 97–174; BP diastolic 44–86
[2020-01-10] MEDS: SODIUM CHLORIDE 0.9% 1000ML 1,000 ML IV SCH ×3 (00:08→23:48)
[2020-01-10 04:35] LABS: BASOPHILS % 0.4 % (0.0-1.0); EOSINOPHILS # (AUTO) 0.1 (0.0-0.4); EOSINOPHILS % 1.7 % (0.0-6.0); HEMATOCRIT 38.8 % (38.2-49.6); HEMOGLOBIN 12.9 g/dL (14.0-18.0); LYMPHOCYTES # (AUTO) 1.1 (1.0-3.2); MEAN CORPUSCULAR HEMOGLOBIN 29.7 pg (28-32); MEAN CORPUSCULAR HGB CONC 33.2 g/dL (31-35); MEAN CORPUSCULAR VOLUME 89.4 fL (81-99); MONOCYTES # (AUTO) 0.9 (0.2-0.8); MONOCYTES % 10.5 % (4.4-11.3); NEUTROPHILS # (AUTO) 6.2 (2.1-6.9); NEUTROPHILS % 73.9 % (38.7-80.0); PLATELET COUNT 138 x10e3/uL (140-360); RED BLOOD COUNT 4.34 x10e6/uL (4.3-5.7)
[2020-01-10 04:51] LABS: ALANINE AMINOTRANSFERASE 32 IU/L (0-55); ALBUMIN 3.2 g/dL (3.5-5.0); ALKALINE PHOSPHATASE 68 IU/L (40-150); ANION GAP 10.7 mmol/L (8-16); BLOOD UREA NITROGEN 12 mg/dL (7-26); BUN/CREATININE RATIO 14 (6-25); CALCIUM 8.7 mg/dL (8.4-10.2); CARBON DIOXIDE 18 mmol/L (22-29); CHLORIDE 114 mmol/L (98-107); CREATININE, SERUM 0.86 mg/dL (0.72-1.25); EST GLOMERULAR FILTRATION RATE > 60 ML/MIN (60-); GLUCOSE 107 mg/dL (74-118); POTASSIUM 3.7 mmol/L (3.5-5.1); SODIUM 139 mmol/L (136-145)
--- NOTE | 2020-01-10 07:00 | NUR ---
BEDSIDE SHIFT REPORT RECEIVED FROM FURNITURE SANDER RN. EDUCATED PT ABOUT FALL PRECAUTIONS. PT VERBALIZED UNDERSTANDING. BED IS LOW AND LOCKED. SIDE RAILS X2. BED ALARM IS ON. CALL LIGHT WITH IN EASY REACH. ALL SAFETY MEASURES IN PLACE. PT DENIES NEEDS AT THIS TIME.
--- NOTE | 2020-01-10 08:05 | NUR ---
PAGED PT FAMILY AND RECONFIRMED PT HOME MEDS WITH PT AND DAUGHTER CONRAD.
--- NOTE | 2020-01-10 08:20 | NUR ---
PAGED DR. WOODS REGARDING PT HOME MEDS. RENEW ALL HOME MEDS PER THE
[2020-01-10] MEDS ORDERED: ONDANSETRON HCL INJ 2MG/ML 2ML 2 MG/ML VIAL IV PRN (08:30)
[2020-01-10] MEDS ORDERED: ACETAMINOPHEN 325 MG TAB PO PRN (08:30)
[2020-01-10] MEDS ORDERED: TRAMADOL HCL 50 MG TAB PO PRN (08:30)
[2020-01-10] MEDS: GABAPENTIN 300 MG CAP PO SCH (09:59)
[2020-01-10] MEDS: LISINOPRIL 20 MG TAB PO SCH (09:59)
[2020-01-10] MEDS: FUROSEMIDE 20 MG TAB PO SCH ×2 (09:59→17:19)
--- NOTE | 2020-01-10 18:23 | NUR ---
PAGED DR. PRO AND INFORMED REGARDING NEW CONSULT.
--- NOTE | 2020-01-10 19:00 | NUR ---
BEDSIDE SHIFT REPORT GIVEN TO THE RESTAURANT MANAGER RN. PT DENIED FURTHER NEEDS.
--- NOTE | 2020-01-10 19:48 | NUR ---
REPORT RECEIVED FROM DAYSHIFT RN, PATIENT AWAKE ALERT NO DISTRESS NOTED, WILL CONTINUE CARE
[2020-01-10] MEDS: SIMVASTATIN 20 MG TAB PO SCH (20:50)
[2020-01-10] MEDS: TAMSULOSIN HCL 0.4 MG CAP PO SCH (20:50)
[2020-01-10] MEDS: BIMATOPROST(OPTH) 2.5 ML BOTTLE OP SCH (20:51)
--- NOTE | 2020-01-10 22:46 | History and Physical ---
CHIEF COMPLAINT: Dysuria and urinary frequency. HISTORY OF PRESENT ILLNESS: Mr. Adam Nielsen is an 84-year-old gentleman with a history of urinary tract infection. The patient was seen in an urgent care clinic and antibiotic was prescribed and the patient was given antibiotic, name unknown, however, the patient's dysuria got really bad and some burning, along with this, the patient came in with chills and rigors and was admitted to the hospital for possible pyelonephritis and urinary tract infection and hypertensive crisis. PAST MEDICAL HISTORY: History of hypertension, history of glaucoma, history of neuropathy, and history of rheumatoid arthritis. PAST SURGICAL HISTORY: History of knee replacement, and history of low back surgery. The patient's surgical history includes appendectomy, prostatectomy, and cataract surgery and of course as mentioned above back fusion surgery. MEDICATIONS: He takes at home include Lumigan for glaucoma, Lasix 20 mg twice a day, gabapentin 300 mg daily, lisinopril 40 mg daily, pravastatin 40 mg daily, and tramadol 50 mg daily as needed. ALLERGIES: NO DRUG ALLERGIES NOTED. SOCIAL HISTORY: No EtOH. No IV drug abuse and no history of smoking either. PHYSICAL EXAMINATION: GENERAL: The patient is alert and oriented x3, toxic looking. VITAL SIGNS: Temperature is 99.3, pulse of 87, respirations of 20, blood pressure is 162/79, pulse oximetry of 98% on room air. HEENT: Normocephalic and atraumatic. Pupils are reactive. CVS: S1 and S2 normal. Regular rate and rhythm. ABDOMEN: Suprapubic tenderness present. EXTREMITIES: No clubbing, no cyanosis, no edema. LABORATORY VALUES: The patient's initial lactic acid was 2.4. Sodium of 139, potassium 3.7, BUN of 12, creatinine 0.86. Hematology; white count is 8.44, hemoglobin 12.9, and platelet count 138, and monocyte of 0.9. Serology; coronavirus is pending. Microbiology; urine culture is pending. ASSESSMENT: 1. Mr. Adam Nielsen with sepsis on arrival. 2. Hypertensive urgency. 3. History of benign prostatic hypertrophy, status post prostatectomy by Dr. Garza. 4. History of neuropathy and history of hyperlipidemia and chronic low back pain. PLAN: Continue with fluids. Currently, the patient is on fluid resuscitation. Lasix has been started 20 mg twice a day. The patient's lisinopril has been started also, simvastatin has been started. We will to continue monitor the patient. Further recommendation per clinical course. We will also consult Dr. Garza, his urologist. Antibiotic pickens, the patient will be started on Zosyn 3.375 q.6 hours. MD ELEUTERIO Perez/ADEAL /[id number]
[2020-01-10] MEDS: PIPER-TAZ 3.375 GM 50 ML IV SCH (23:38)
[2020-01-11] VITALS (10 sets, daily range): BP systolic 113–169; BP diastolic 61–90
[2020-01-11] MEDS: PIPER-TAZ 3.375 GM 50 ML IV SCH ×4 (05:24→23:09)
--- NOTE | 2020-01-11 07:44 | NUR ---
PATIENT IN BED RESTING WITH HEAD OF BED ELEVATED, NO DISTRESS NOTED. IV FLUID INFUSING ORDERED. SCD IN PLACE. BED IN LOWER POSITION, CALL LIGHT AT REACH.
--- NOTE | 2020-01-11 08:07 | Progress Note ---
DATE: SUBJECTIVE: The patient is admitted to the hospital for sepsis, hypertensive emergency, and urinary tract infection. CURRENT MEDICATIONS: The patient is on Zosyn q.6 hours, on 75 mL of normal saline, simvastatin, tamsulosin, furosemide 20 mg twice a day, and lisinopril 30 mg once a day. The patient is also on enoxaparin for DVT prophylaxis. PHYSICAL EXAMINATION: GENERAL: Overnight, the patient felt better, fever better. VITAL SIGNS: Temperature is 99.1, pulse of 98, respirations of 18, blood pressure is 113/61, pulse oximetry of 99% on room air. HEENT: Normocephalic and atraumatic. Pupils are reactive. CVS: S1 and S2, tachy. ABDOMEN: Soft, nontender, nondistended. EXTREMITIES: No clubbing, no cyanosis, no edema. No CVA tenderness either. LABORATORY VALUES: White count was 8.44 yesterday. Lactic acid is 2.4. Sodium of 139, potassium of 3.7, BUN of 12, creatinine 0.6. Serology, coronavirus nondetected. ASSESSMENT AND PLAN: Mr. Adam Nielsen is with: 1. Sepsis on arrival. Plan, continue on Zosyn, probably secondary to urinary tract infection. The patient apparently did not have prostatectomy by Dr. Garza. We will continue with Flomax with secondary history of benign prostatic hypertrophy. 2. Elevated lactic acid, has been trended down. 3. History of neuropathy. Continue with gabapentin. 4. History of hyperlipidemia and chronic low back pain. Continue with medication. We will continue to monitor the patient, feeling better. Deep venous thrombosis prophylaxis has been instituted. The patient is on a regular diet. Further recommendation per clinical course. We will continue to monitor the patient. Possible discharge in 1 to 2 days depending on the cultures, which are pending. MD ELEUTERIO Perez/ADELA /[id number]
[2020-01-11] MEDS: FUROSEMIDE 20 MG TAB PO SCH (09:02)
[2020-01-11] MEDS: GABAPENTIN 300 MG CAP PO SCH (09:02)
[2020-01-11] MEDS: LISINOPRIL 20 MG TAB PO SCH (09:02)
--- NOTE | 2020-01-11 11:54 | NUR ---
PATIENT ASSISTED TO THE RESTROOM AND BACK TO BED. REQUESTED AND RECEIVED A CUP OF ICE WATER. IN BED WITH CALL LIGHT AT REACH.
[2020-01-11] MEDS: SODIUM CHLORIDE 0.9% 1000ML 1,000 ML IV SCH (15:15)
--- NOTE | 2020-01-11 15:50 | NUR ---
PATIENT SITTING AT BED SIDE TALKING ON THE PHONE, NO COMPLAIN VOICED. CALL LIGHT AT REACH.
[2020-01-11] MEDS: ENOXAPARIN 30 MG/0.3 ML SYR SC SCH (17:08)
--- NOTE | 2020-01-11 19:30 | NUR ---
SBAR REPORT RECEIVED FROM TYSON PATEL, PATIENT AOX3, VISUALLY IMPAIRED, REMAINS ON CONTACT PRECAUTIONS, WILL CONTINUE TO MONITOR, UP WITH ASSISTANCE ONLY, BED ALARM IN PLACE FOR SAFETY, PER TYSON RN, PT FAMILY REQUESTING MD WOODS BE CONTACTED FOR PRN FOR INSOMNIA, WILL CONTINUE TO MONITOR
[2020-01-11] MEDS: BIMATOPROST(OPTH) 2.5 ML BOTTLE OP SCH (20:28)
[2020-01-11] MEDS: SIMVASTATIN 20 MG TAB PO SCH (20:28)
[2020-01-11] MEDS: TAMSULOSIN HCL 0.4 MG CAP PO SCH (20:28)
--- NOTE | 2020-01-11 20:33 | NUR ---
PAGED MD WOODS PER FAMILY REQUEST FOR SLEEP AID, AWAITING CALL BACK
--- NOTE | 2020-01-11 20:37 | NUR ---
MD WOODS RETURN CALL AND ORDERED FOR PATIENT TO RECEIVE TEMAZEPAM 15MG PO PRN FOR INSOMNIA, ORDER CARRIED OUT
[2020-01-11] MEDS: TEMAZEPAM 7.5 MG CAP PO PRN (21:36)
[2020-01-12] VITALS (9 sets, daily range): BP systolic 133–155; BP diastolic 62–88
--- NOTE | 2020-01-12 03:42 | NUR ---
TELEMETRY CALLED BOX NOT READING, PT SEEN SLEEPING W/O DISTRESS, EASILY AWAKEN, OFFERED TOILETING, ABLE TO WALK WITH WALKER, SAFETY MAINTAINED, BATTERIES CHANGED AND LEADS FIXED, VERIFIED WITH TELEMETRY BOX IS WORKING, SR
[2020-01-12] MEDS: SODIUM CHLORIDE 0.9% 1000ML 1,000 ML IV SCH (05:17)
[2020-01-12] MEDS: PIPER-TAZ 3.375 GM 50 ML IV SCH ×3 (05:17→18:05)
[2020-01-12 06:40] LABS: BASOPHILS % 0.5 % (0.0-1.0); EOSINOPHILS # (AUTO) 0.2 (0.0-0.4); EOSINOPHILS % 3.3 % (0.0-6.0); HEMATOCRIT 38.9 % (38.2-49.6); HEMOGLOBIN 13.2 g/dL (14.0-18.0); LYMPHOCYTES # (AUTO) 1.6 (1.0-3.2); LYMPHOCYTES % 25.9 % (18.0-39.1); MEAN CORPUSCULAR HGB CONC 33.9 g/dL (31-35); MEAN CORPUSCULAR VOLUME 91.3 fL (81-99); MONOCYTES # (AUTO) 0.6 (0.2-0.8); MONOCYTES % 9.9 % (4.4-11.3); NEUTROPHILS # (AUTO) 3.7 (2.1-6.9); NEUTROPHILS % 59.7 % (38.7-80.0); PLATELET COUNT 144 x10e3/uL (140-360); RED BLOOD COUNT 4.26 x10e6/uL (4.3-5.7)
[2020-01-12 06:57] LABS: ANION GAP 11.7 mmol/L (8-16); BLOOD UREA NITROGEN 11 mg/dL (7-26); BUN/CREATININE RATIO 13 (6-25); CALCIUM 8.9 mg/dL (8.4-10.2); CARBON DIOXIDE 22 mmol/L (22-29); CHLORIDE 106 mmol/L (98-107); CREATININE, SERUM 0.82 mg/dL (0.72-1.25); EST GLOMERULAR FILTRATION RATE > 60 ML/MIN (60-); GLUCOSE 100 mg/dL (74-118); POTASSIUM 3.7 mmol/L (3.5-5.1); SODIUM 136 mmol/L (136-145)
--- NOTE | 2020-01-12 07:20 | NUR ---
PATIENT ASSISTED TO THE RESTROOM AND BACK TO BED. IV FLUID INFUSING ORDERED. CALL LIGHT AT REACH.
[2020-01-12] MEDS: FUROSEMIDE 20 MG TAB PO SCH (09:02)
[2020-01-12] MEDS: GABAPENTIN 300 MG CAP PO SCH (09:02)
[2020-01-12] MEDS: LISINOPRIL 20 MG TAB PO SCH (09:02)
--- NOTE | 2020-01-12 09:12 | Progress Note ---
DATE: SUBJECTIVE: The patient is an 84-year-old male, who came in with sepsis, urinary tract infection. Cultures have been done. The patient is feeling much better. No chest pains. No shortness of breath. Slept well with temazepam. OBJECTIVE: VITAL SIGNS: Temperature is 98.9, has been afebrile, pulse of 79, respirations of 18, blood pressure is 149/62, pulse oximetry of 99% on room air. HEENT: Normocephalic and atraumatic. Pupils are reactive. CVS: S1 and S2 normal. Regular rate and rhythm. ABDOMEN: Soft, nontender, and nondistended. EXTREMITIES: No clubbing. No cyanosis. No edema. LABORATORY VALUES: Microbiology, urine culture, final, no growth. Blood culture, no growth. IMAGING: None done. ASSESSMENT AND PLAN: Mr. Adam Nielsen with: 1. Sepsis, on arrival. Continue on Zosyn. Continue with Urology consult. 2. Elevated lactic acid, has trended down. 3. History of hyperlipidemia and chronic low back pain. . PLAN: Physical therapy to walk him today, possible discharge tomorrow, has been afebrile for the last 24 hours. MD ELEUTERIO Perez/SHOSHANAL /[id number]
--- NOTE | 2020-01-12 11:45 | NUR ---
PATIENT ASSISTED TO RESTROOM, LINENS CHANGED. BACK IN BED WITH CALL LIGHT AT REACH.
--- NOTE | 2020-01-12 15:38 | NUR ---
PATIENT SITTING AT BED SIDE WATCHING TV, NO COMPLAIN VOICED. ALL PERSONAL ITEMS CLOSE TO PATIENT. BED IN LOWER POSITION, CALL LIGHT AT REACH.
[2020-01-12] MEDS: ENOXAPARIN 30 MG/0.3 ML SYR SC SCH (17:14)
[2020-01-12] MEDS: BIMATOPROST(OPTH) 2.5 ML BOTTLE OP SCH (20:31)
[2020-01-12] MEDS: TAMSULOSIN HCL 0.4 MG CAP PO SCH (20:32)
[2020-01-12] MEDS: TEMAZEPAM 7.5 MG CAP PO PRN (20:32)
[2020-01-12] MEDS: SIMVASTATIN 20 MG TAB PO SCH (20:32)
--- NOTE | 2020-01-12 20:32 | NUR ---
PATIENT REQUESTING RESTORIL PO, C/O INABILITY TO REST COMFORTABLY, REQUEST CARRIED OUT GIVEN WITH NIGHTTIME SCHEDULE MEDICATION, OFFERED TOILETING, SAFETY MAINTAINED, BED ALARM IN PLACE FOR SAFETY, EDUCATED NOT TO GET UP W/O ASSISTANCE, CALL LIGHT WITHIN REACH
[2020-01-13] VITALS: BP 125/69
[2020-01-13 04:00] VITALS: BP 137/77
[2020-01-13] MEDS: PIPER-TAZ 3.375 GM 50 ML IV SCH ×3 (05:20→11:59)
[2020-01-13 05:41] VITALS: BP 137/77
--- NOTE | 2020-01-13 06:43 | NUR ---
MD WOODS ROUNDING ON PATIENT, STATED "POSSIBLE DISCHARGE TODAY IF OKAY WITH PT"
--- NOTE | 2020-01-13 08:02 | Progress Note ---
DATE: SUBJECTIVE: The patient is an 84-year-old gentleman who came in with urosepsis. On arrival, the patient has been treated with initial dose of Rocephin and in the ED, started on Zosyn 3.75 q.6 hours. The patient is feeling better, however, little weak on ambulation. Physical therapy has been ordered. Report not done yet. Otherwise, feeling better and in good spirits. Slept well. OBJECTIVE: VITAL SIGNS: Temperature is 98.2, pulse of 81, respirations of 18, blood pressure is 137/77, oxygen is on room air at 97%. HEENT: Normocephalic and atraumatic. Pupils are reactive to light and accommodation. CVS: S1 and S2 normal, regular rate and rhythm. ABDOMEN: Soft, nontender, nondistended. EXTREMITIES: No clubbing, no cyanosis, no edema. LABORATORY STUDIES: Chemistries from yesterday were normal and hematology, white count is normal sepsis. Lactic acid has normalized to 1.0. ASSESSMENT AND PLAN: Mr. Adam Nielsen with: 1. Sepsis on arrival. Continue on Zosyn. Urology consult on board. 2. Elevated lactic acid, better. 3. History of hyperlipidemia. 4. History of low back pain. PLAN: Continue physical therapy today and discharged today on Augmentin if okay with Urology. Further recommendation per clinical course. We will see the patient back in the clinic in about a week's time. If needed, the patient needs home health and physical therapy deems so, further recommendation per clinical course. MD ELEUTERIO Perez/MODL /[id number]
[2020-01-13 08:09] VITALS: BP 159/85
[2020-01-13 08:44] VITALS: BP 159/85
[2020-01-13] MEDS: GABAPENTIN 300 MG CAP PO SCH (09:22)
[2020-01-13] MEDS: FUROSEMIDE 20 MG TAB PO SCH (09:22)
[2020-01-13] MEDS: LISINOPRIL 20 MG TAB PO SCH (09:22)
[2020-01-13 11:55] VITALS: BP 158/80
--- NOTE | 2020-01-13 13:59 | NUR ---
Discontinuing PT services since patient is mod I in functional mobility. Thank you Addendum: 01/13/20 at 1400 by Philippe cohn PT Amended: Links added.
[2020-01-13] MEDS ORDERED: AUGMENTIN 875-1 EACH PO (14:29)
--- NOTE | 2020-01-13 14:59 | NUR ---
Patient discharged home, prescription given, Discharge order recvd from Dr Branch, Patient aware about f/up appointments, IV canula removed with tip intact, No s/s of infiltration noted, talked to his daughter she is here to pick him, denies any pain no distress noted
== END 2020-01-13 15:00 | disposition home or self-care (01) | DRG 872 ==
LOC: FSED 20:48 → ERHOLD 22:28 → MED/SURG3 23:54
PROVIDERS: ADMIT Family Medicine; ATTEND Family Medicine
DX: A41.9 Sepsis, unspecified organism (principal); E87.2 Acidosis; I16.0 Hypertensive urgency; N40.0 Benign prostatic hyperplasia without lower urinary tract symptoms; G62.9 Polyneuropathy, unspecified; M54.9 Dorsalgia, unspecified; G89.29 Other chronic pain; E78.5 Hyperlipidemia, unspecified; Z11.59 Encounter for screening for other viral diseases
CPT/HCPCS: 36415; 71045; 74176; 80048; 80053; 81003; 82948; 83605; 85025; 87040; 87086; 99284; J0360; J0696; J1650; J2543; J7030; U0002

== ENCOUNTER 2020-08-11 12:26 | Emergency (ER) | payer MEDICARE ==
[~2020-08-11] VITALS: Ht 177.8 cm; Wt 80.7 kg
[~2020-08-11 12:26] MED LIST changes: +AUGMENTIN 875-1 EACH PO
[2020-08-11] MEDS ORDERED: BACTRIM DS TAB1 EACH PO (12:54)
[2020-08-11] MEDS ORDERED: TETANUS/DIPHTHERIA TOX ADULT 0.5 ML SYR IM ONE (13:00)
[2020-08-11] MEDS ORDERED: TRAMADOL HCL 50 MG TAB ONE (13:14)
[2020-08-11] MEDS ORDERED: TETANUS/DIPHTHERIA TOX ADULT 0.5 ML SYR ONE (13:14)
[2020-08-11] MEDS ORDERED: TRAMADOL HCL 50 MG TAB PO ONE (13:15)
== END 2020-08-11 14:45 | disposition home or self-care (01) ==
LOC: FSED 13:00
DX: R07.89 Other chest pain (principal); S20.212A Contusion of left front wall of thorax, initial encounter; W08.XXXA Fall from other furniture, initial encounter; Y92.008 Other place in unspecified non-institutional (private) residence as the place of occurrence of the external cause; I10 Essential (primary) hypertension; E78.5 Hyperlipidemia, unspecified; M06.9 Rheumatoid arthritis, unspecified; H40.9 Unspecified glaucoma; G62.9 Polyneuropathy, unspecified; M54.9 Dorsalgia, unspecified; G89.29 Other chronic pain
CPT/HCPCS: 71101; 90471; 90714; 99283

== ENCOUNTER 2021-03-30 13:54 | Inpatient (IN) | payer MEDICARE ==
[~2021-03-30] VITALS: Ht 177.8 cm; Wt 86.2 kg
[~2021-03-30 13:54] MED LIST changes: +BACTRIM DS TAB1 EACH PO
[2021-03-30] MEDS ORDERED: SODIUM CHLORIDE 0.9% 1000ML 1,000 ML IV SCH ×2 (15:00→18:15)
[2021-03-30] MEDS ORDERED: IBUPROFEN 600 MG TAB PO STA (15:21)
[2021-03-30] MEDS ORDERED: SODIUM CHLORIDE 0.9% 50ML 50 ML ONE (15:37)
[2021-03-30] MEDS: CEFEPIME 2 GM in SODIUM CHLORIDE 0.9% 100 ML IV SCH ×2 (15:37→23:00)
[2021-03-30] MEDS ORDERED: IOPAMIDOL 370 MG/ML 200 ML INFUS..BTL INJ ONE (15:37)
[2021-03-30] MEDS ORDERED: IBUPROFEN 600 MG TAB ONE (15:39)
[2021-03-30] MEDS ORDERED: CEFEPIME HCL 1 GM VIAL ONE (15:39)
[2021-03-30] MEDS ORDERED: SODIUM CHLORIDE 0.9% 1000ML 2,000 ML ONE (15:39)
[2021-03-30] MEDS ORDERED: SODIUM CHLORIDE 0.9% 1000ML 1,000 ML IV STA ×2 (16:41→16:49)
[2021-03-30] MEDS: LEVOFLOXACIN 750MG/D5W 150ML 150 ML IV SCH (16:43)
[2021-03-30] MEDS ORDERED: LEVOFLOXACIN 750MG/D5W 150ML 150 ML IV ONE (16:46)
[2021-03-30] MEDS ORDERED: ONDANSETRON HCL INJ 2MG/ML 2ML 2 MG/ML VIAL IV PRN (18:15)
[2021-03-30 21:45] VITALS: BP 142/73
[2021-03-30 22:02] VITALS: BP 142/73
[2021-03-30] MEDS: SODIUM CHLORIDE 0.9% 1000ML 1,000 ML IV SCH (23:40)
[2021-03-31] MEDS ORDERED: MELOXICAM7.5 MG PO (00:57)
[2021-03-31] MEDS: CEFEPIME 2 GM in SODIUM CHLORIDE 0.9% 100 ML IV SCH ×3 (05:52→21:10)
[2021-03-31 06:09] LABS: BASOPHILS % 0.5 % (0.0-1.0); EOSINOPHILS # (AUTO) 0.1 (0.0-0.4); HEMATOCRIT 39.1 % (38.2-49.6); HEMOGLOBIN 12.8 g/dL (14.0-18.0); LYMPHOCYTES # (AUTO) 0.9 (1.0-3.2); LYMPHOCYTES % 14.9 % (18.0-39.1); MEAN CORPUSCULAR HEMOGLOBIN 30.5 pg (28-32); MEAN CORPUSCULAR HGB CONC 32.7 g/dL (31-35); MEAN CORPUSCULAR VOLUME 93.3 fL (81-99); MONOCYTES # (AUTO) 0.6 (0.2-0.8); MONOCYTES % 10.5 % (4.4-11.3); NEUTROPHILS # (AUTO) 4.2 (2.1-6.9); NEUTROPHILS % 71.4 % (38.7-80.0); PLATELET COUNT 118 x10e3/uL (140-360); RED BLOOD COUNT 4.19 x10e6/uL (4.3-5.7); RED CELL DISTRIBUTION WIDTH 12.7 % (11.7-14.4)
[2021-03-31 06:56] LABS: ALBUMIN 3.5 g/dL (3.5-5.0); ALBUMIN/GLOBULIN RATIO 1.1 (0.8-2.0); ANION GAP 12.9 mmol/L (8-16); CALCIUM 8.4 mg/dL (8.4-10.2); CREATININE, SERUM 0.96 mg/dL (0.72-1.25); POTASSIUM 3.9 mmol/L (3.5-5.1)
[2021-03-31 07:46] VITALS: BP 153/88
[2021-03-31] MEDS: SODIUM CHLORIDE 0.9% 1000ML 1,000 ML IV SCH ×2 (11:48→18:01)
[2021-03-31 11:52] VITALS: BP 161/90
[2021-03-31 16:12] VITALS: BP 156/79
[2021-03-31] MEDS: LEVOFLOXACIN 750MG/D5W 150ML 150 ML IV SCH (18:01)
[2021-03-31 19:47] VITALS: BP 164/88
[2021-03-31 21:00] VITALS: BP 164/88
[2021-03-31] MEDS ORDERED: ACETAMINOPHEN 325 MG TAB PO PRN (22:15)
[2021-03-31 23:54] VITALS: BP 160/83
[2021-04-01 05:42] VITALS: BP 164/88
[2021-04-01] MEDS: CEFEPIME 2 GM in SODIUM CHLORIDE 0.9% 100 ML IV SCH (06:05)
[2021-04-01 06:23] LABS: BASOPHILS % 0.4 % (0.0-1.0); EOSINOPHILS # (AUTO) 0.1 (0.0-0.4); EOSINOPHILS % 1.8 % (0.0-6.0); HEMATOCRIT 40.1 % (38.2-49.6); HEMOGLOBIN 13.5 g/dL (14.0-18.0); LYMPHOCYTES # (AUTO) 1.3 (1.0-3.2); MEAN CORPUSCULAR HEMOGLOBIN 30.6 pg (28-32); MEAN CORPUSCULAR HGB CONC 33.7 g/dL (31-35); MEAN CORPUSCULAR VOLUME 90.9 fL (81-99); MONOCYTES # (AUTO) 0.8 (0.2-0.8); MONOCYTES % 10.3 % (4.4-11.3); NEUTROPHILS % 68.9 % (38.7-80.0); PLATELET COUNT 133 x10e3/uL (140-360); RED BLOOD COUNT 4.41 x10e6/uL (4.3-5.7); RED CELL DISTRIBUTION WIDTH 12.6 % (11.7-14.4)
[2021-04-01 06:39] LABS: ALBUMIN 3.8 g/dL (3.5-5.0); ANION GAP 15.1 mmol/L (8-16); CALCIUM 9.3 mg/dL (8.4-10.2); CREATININE, SERUM 0.9 mg/dL (0.72-1.25); POTASSIUM 4.1 mmol/L (3.5-5.1)
[2021-04-01 08:30] VITALS: BP 175/99
[2021-04-01 08:36] VITALS: BP 175/99
[2021-04-01] MEDS ORDERED: GABAPENTIN 300 MG CAP PO SCH (09:00)
[2021-04-01] MEDS ORDERED: LISINOPRIL 10 MG TAB PO SCH (09:00)
[2021-04-01] MEDS ORDERED: FUROSEMIDE 20 MG TAB PO SCH (09:00)
[2021-04-01 11:48] VITALS: BP 164/90
[2021-04-01] MEDS: SODIUM CHLORIDE 0.9% 1000ML 1,000 ML IV SCH (13:05)
[2021-04-01] MEDS ORDERED: BIMATOPROST(OPTH) 2.5 ML BOTTLE OP SCH (21:00)
[2021-04-01] MEDS ORDERED: PRAVASTATIN 20 MG TAB PO SCH (21:00)
== END 2021-04-01 15:03 | disposition home or self-care (01) | DRG 872 ==
LOC: FSED 14:48 → ERHOLD 18:08 → MED/SURG3 20:45
PROVIDERS: ADMIT Family Medicine; ATTEND Family Medicine
DX: A41.9 Sepsis, unspecified organism (principal); N39.0 Urinary tract infection, site not specified; J84.9 Interstitial pulmonary disease, unspecified; I10 Essential (primary) hypertension; K76.0 Fatty (change of) liver, not elsewhere classified; K57.90 Diverticulosis of intestine, part unspecified, without perforation or abscess without bleeding; N28.1 Cyst of kidney, acquired; Z20.822 Contact with and (suspected) exposure to COVID-19; E78.5 Hyperlipidemia, unspecified; M06.9 Rheumatoid arthritis, unspecified; H40.9 Unspecified glaucoma
CPT/HCPCS: 36415; 71250; 74177; 80048; 80053; 80076; 81003; 82948; 83518; 83605; 85025; 87040; 87086; 87400; 93970; 99284; J0692; J7030; J7050; Q9967; U0002

== ENCOUNTER 2025-02-04 04:13 | Inpatient (IN) | payer MEDICARE ==
[~2025-02-04] VITALS: Ht 177.8 cm; Wt 81.6 kg
[2025-02-04] VITALS (9 sets, daily range): BP systolic 101–128; BP diastolic 51–70; PULSE 60–84; RESP 14–20; TEMP 97.3–98.4; O2SAT 94–100
[~2025-02-04 04:13] MED LIST changes: +HYDROCODON-ACE1 EAC9 PO; +MELOXICAM7.5 MG PO
[2025-02-04 04:59] LABS: BASOPHILS % 0.4 % (0.0-1.0); EOSINOPHILS % 4.7 % (0.0-6.0); LYMPHOCYTES % 30.5 % (18.0-39.1); MONOCYTES % 8.0 % (4.4-11.3); NEUTROPHILS % 56.0 % (38.7-80.0); RED CELL DISTRIBUTION WIDTH 13.2 % (11.7-14.4)
[2025-02-04 05:20] LABS: INR 1.01
[2025-02-04 05:22] LABS: LEUKOCYTE ESTERASE ,URINE SMALL (NEGATIVE); PROTEIN,URINE DIPSTICK NEGATIVE (NEGATIVE); URINE UROBILINOGEN 0.2 mg/dL (0.2 - 1)
[2025-02-04 05:23] LABS: WBC,URINE (MAN) 21-50 /HPF (0-5)
[2025-02-04 05:24] LABS: EPITHELIAL CELLS,URINE FEW /LPF
[2025-02-04 05:25] LABS: CORONAVIRUS COVID-19 AG NEGATIVE (NEGATIVE)
[2025-02-04 05:28] LABS: EST GLOMERULAR FILTRATION RATE 32.0 ML/MIN (>=60)
[2025-02-04] MEDS: SODIUM CHLORIDE 0.9% 1000ML 1,000 ML IV ONE (05:31)
[2025-02-04] MEDS ORDERED: ACETAMINOPHEN 325 MG TAB PO PRN (06:00)
[2025-02-04] MEDS ORDERED: ONDANSETRON HCL INJ 2MG/ML 2ML 2 MG/ML VIAL IV PRN (06:00)
[2025-02-04] MEDS: ASPIRIN 81 MG CHEW TAB PO ONE (07:05)
[2025-02-04] MEDS: SODIUM CHLORIDE 0.9% 1000ML 1,000 ML IV SCH (08:16)
[2025-02-04] MEDS ORDERED: BACTRIM 400-801 EACH PO (10:45)
[2025-02-04] MEDS ORDERED: LATANOPROST2.5 ML OP (10:50)
[2025-02-04] MEDS ORDERED: ALFUZOSIN HCL10 MG PO (10:50)
[2025-02-04] MEDS ORDERED: MEMANTINE HCL5 MG PO (10:50)
[2025-02-04] MEDS ORDERED: DULOXETINE HCL30 MG PO (10:50)
[2025-02-04] MEDS: DULOXETINE HCL 30 MG DELAYED RELEASE PO SCH (21:31)
[2025-02-04] MEDS: SIMVASTATIN 20 MG TAB PO SCH (21:31)
[2025-02-04] MEDS: LATANOPROST(OPTH) 2.5 ML BTL OP SCH (21:32)
[2025-02-05] VITALS (8 sets, daily range): BP systolic 115–171; BP diastolic 55–79; PULSE 72–86; RESP 16–20; TEMP 97.6–98.3; O2SAT 97–100
[2025-02-05 06:20] LABS: BASOPHILS % 0.7 % (0.0-1.0); EOSINOPHILS % 7.0 % (0.0-6.0); LYMPHOCYTES % 25.7 % (18.0-39.1); MONOCYTES % 8.2 % (4.4-11.3); NEUTROPHILS % 58.2 % (38.7-80.0); RED CELL DISTRIBUTION WIDTH 13.2 % (11.7-14.4)
[2025-02-05 06:43] LABS: EST GLOMERULAR FILTRATION RATE 49.0 ML/MIN (>=60)
[2025-02-05] MEDS: ALFUZOSIN HCL 10 MG TAB.ER.24H PO SCH (16:53)
[2025-02-06] VITALS (7 sets, daily range): BP systolic 127–148; BP diastolic 57–83; PULSE 17–98; RESP 17–19; TEMP 97.7–98.7; O2SAT 88–100
[2025-02-06 07:59] LABS: BASOPHILS % 0.2 % (0.0-1.0); EOSINOPHILS % 2.0 % (0.0-6.0); LYMPHOCYTES % 16.4 % (18.0-39.1); MONOCYTES % 6.7 % (4.4-11.3); NEUTROPHILS % 74.5 % (38.7-80.0); RED CELL DISTRIBUTION WIDTH 12.9 % (11.7-14.4)
[2025-02-06 08:25] LABS: EST GLOMERULAR FILTRATION RATE 56.0 ML/MIN (>=60)
[2025-02-06] MEDS: LORAZEPAM 0.5 MG TAB PO ONE (20:25)
[2025-02-07] VITALS (7 sets, daily range): BP systolic 127–172; BP diastolic 57–85; PULSE 84–94; RESP 17–20; TEMP 97.3–98.7; O2SAT 88–100
== END 2025-02-07 20:43 | disposition home or self-care (01) | DRG 689 ==
LOC: ER 04:19 → ERHOLD 06:03 → MED/SURG3 08:14 → OBSVTOIN 02-06 11:52
PROVIDERS: ADMIT Family Medicine; ATTEND Family Medicine
DX: N39.0 Urinary tract infection, site not specified (principal); G93.41 Metabolic encephalopathy; N17.9 Acute kidney failure, unspecified; F03.93 Unspecified dementia, unspecified severity, with mood disturbance; I12.9 Hypertensive chronic kidney disease with stage 1 through stage 4 chronic kidney disease, or unspecified chronic kidney disease; I44.0 Atrioventricular block, first degree; B96.1 Klebsiella pneumoniae [K. pneumoniae] as the cause of diseases classified elsewhere; E78.5 Hyperlipidemia, unspecified; E86.0 Dehydration; G62.9 Polyneuropathy, unspecified; Z11.52 Encounter for screening for COVID-19; N18.31 Chronic kidney disease, stage 3a; I73.9 Peripheral vascular disease, unspecified; F32.9 Major depressive disorder, single episode, unspecified; G47.00 Insomnia, unspecified; M19.90 Unspecified osteoarthritis, unspecified site; Z99.3 Dependence on wheelchair
CPT/HCPCS: 36415; 70450; 71045; 71250; 80048; 80053; 81001; 82550; 82948; 83605; 83735; 84443; 84484; 85025; 85610; 85730; 87040; 87086; 87186; 93005; 93306; 94799; 99252; 99284; G0378; J0696; J7030